=== PATIENT | male | born 1945 | race Two or more races ===

== ENCOUNTER 2017-03-21 10:51 | Inpatient (IN) | payer MEDICARE, OTHER ==
[~2017-03-21] VITALS: Ht 170.2 cm; Wt 57.2 kg
[2017-03-21] VITALS: BP 120/62
--- NOTE | 2017-03-21 11:15 | NUR ---
BIBPA FROM HD- DT LOW BP. PER REPORT HS WAS ALMOST FINISH, PATIENT IS AWAKE, HOWEVER NON VERBALOLY RESPONSIVE. NOTED WITH TRACHEOSTOMY ON O2 ATLPM. PATIENT AV SHUNT ON LFA NOTED WITH NO BLEEDING. SKIN IS WARM TO TOUCH AND NON DIAPHORETIC. AFEBRILE. VSS
[2017-03-21] MEDS ORDERED: IV NS 0.9% 1,000 ML BAG IV ONE (11:30)
--- NOTE | 2017-03-21 11:42 | NUR ---
CALLED PHOTOGRAPHER ASSISTANT SPORTS BOOK BOARD ATTENDANT DR COTO, ON THE PHONE WITH DR SIGALA.
[2017-03-21 11:43] LABS: BASOPHILS # (AUTO) 0.9 /CMM (0.0-0.2); BASOPHILS % (AUTO) 3.3 % (0.0-2.0); EOSINOPHILS # (AUTO) 0.3 /CMM (0.0-0.7); HEMATOCRIT 30 % (39-51); HEMOGLOBIN 9.6 g/dL (13.5-17.5); LYMPHOCYTES # (AUTO) 2.3 /CMM (0.8-4.8); LYMPHOCYTES % (AUTO) 8.6 % (20.0-44.0); MEAN CORPUSCULAR HEMOGLOBIN 29 PG (26.0-33.0); MEAN CORPUSCULAR HGB CONC 32 g/dl (31.0-36.0); MEAN CORPUSCULAR VOLUME 89 fL (80-96); MONOCYTES # (AUTO) 1.6 /CMM (0.1-1.30); MONOCYTES % (AUTO) 6.1 % (2.0-12.0); NEUTROPHILS # (AUTO) 21.8 /CMM (1.8-8.9); PLATELET COUNT (AUTO) 374 /CMM (150-450); RDW COEFFICIENT OF VARIATION 14.8 (11.5-15.0); RED BLOOD CELL COUNT(AUTO) 3.38 MIL/uL (4.5-6.0); WHITE BLOOD COUNT (AUTO) 26.9 K/uL (4.3-11.0)
[2017-03-21] MEDS ORDERED: HEPARIN INFUSION/D5W 500 ML IV PRN ×2 (12:00→15:00)
[2017-03-21] MEDS ORDERED: ASPIRIN 300 MG/SUPP.RECT RC ONE ×2 (12:00→12:06)
[2017-03-21 12:01] LABS: ALANINE AMINOTRANSFERASE 12 U/L (12-78); ALBUMIN 2.8 g/dL (3.4-5.0); ALKALINE PHOSPHATASE 174 U/L (46-116); ASPARTATE AMINOTRANSFERASE 25 U/L (15-37); BILIRUBIN,DIRECT 0.1 mg/dL (0.0-0.2); BILIRUBIN,TOTAL 0.3 mg/dL (0.2-1.0); CALCIUM, SERUM 10.4 mg/dL (8.5-10.1); CARBON DIOXIDE 22 mmol/L (21-32); CHLORIDE 94 mmol/L (98-107); CREATININE 4.8 mg/dL (0.6-1.3); GLUCOSE 204 mg/dL (74-106); SODIUM SERUM 131 mmol/L (136-145); TOTAL PROTEIN, SERUM 9.9 g/dL (6.4-8.2)
[2017-03-21 12:02] LABS: UREA NITROGEN, BLOOD 100 mg/dL (7-18)
[2017-03-21 12:03] LABS: TROPONIN I < 0.017 ng/mL (0.00-0.056)
[2017-03-21] MEDS ORDERED: ASCO500S2 GT (12:12)
[2017-03-21] MEDS ORDERED: LACT10SO GT (12:12)
[2017-03-21] MEDS ORDERED: INSU100V7 SQ (12:12)
[2017-03-21] MEDS ORDERED: HYDR-4076 GT (12:12)
[2017-03-21] MEDS ORDERED: ATOR40TA GT (12:12)
[2017-03-21] MEDS ORDERED: LEVO50TA8 GT (12:12)
[2017-03-21] MEDS ORDERED: CARB-93 GT (12:12)
[2017-03-21] MEDS ORDERED: LINA5TAB GT (12:12)
[2017-03-21] MEDS ORDERED: LEVE500S GT (12:12)
[2017-03-21] MEDS ORDERED: OMEP40CA37 GT (12:12)
[2017-03-21] MEDS ORDERED: FOLI0.8T2 GT (12:12)
[2017-03-21] MEDS ORDERED: MINO10TA2 GT (12:12)
[2017-03-21] MEDS ORDERED: AMLO5TAB4 GT (12:12)
[2017-03-21] MEDS ORDERED: OMEG500C GT (12:12)
[2017-03-21] MEDS ORDERED: AMIN887L GT (12:12)
[2017-03-21] MEDS ORDERED: HEPARIN SODIUM, PORCINE 5000 UNITS/1 ML VIAL ONE (12:14)
--- NOTE | 2017-03-21 12:15 | NUR ---
PER MD DIAZ START HEPARIN DRIP NOW. PATIENT NOT ON ANY BLOOD THINNER. NO SIGNS OF BLEEDING NOTED. AWAITING FOR PTT. MD AWARE.
--- NOTE | 2017-03-21 12:15 | NUR ---
HEAPRIN BOLUS GIVEN ORDERED
[2017-03-21] MEDS ORDERED: SENN8.6T6 GT (12:23)
[2017-03-21] MEDS ORDERED: LORA1TAB GT (12:23)
[2017-03-21] MEDS ORDERED: BLOO-668 IN (12:23)
[2017-03-21] MEDS ORDERED: PROC25SU31 RC (12:23)
[2017-03-21] MEDS ORDERED: ONDA4TAB5 GT (12:23)
[2017-03-21] MEDS ORDERED: ACET160E13 GT (12:23)
[2017-03-21] MEDS ORDERED: SEVE800T8 GT (12:23)
[2017-03-21] MEDS ORDERED: CLON0.1T GT (12:23)
[2017-03-21 12:28] LABS: PROTHROMBIN TIME 9.3 SECS (9.5-12.7)
[2017-03-21] MEDS ORDERED: ACET160S GT (12:28)
--- NOTE | 2017-03-21 12:29 | NUR ---
lab called for critical high aptt >170. dr edwards and primary nurse rod made aware.
--- NOTE | 2017-03-21 12:30 | NUR ---
HEAPRIN DRIP PUT ON HOLD PER MD DIAZ DT PTT RESULT. ORDERED REDRAW.
[2017-03-21] MEDS ORDERED: ACET160L15 GT (12:32)
[2017-03-21] MEDS ORDERED: INSU100V28 SQ (12:46)
[2017-03-21] MEDS ORDERED: HYDROCODONE/APAP 5/325MG 1 EACH TABLET PO PRN (13:00)
[2017-03-21] MEDS ORDERED: HYDROCODONE/APAP 10/325MG 1 EA TABLET PO PRN (13:00)
[2017-03-21] MEDS ORDERED: Z GUARD REMEDY 2 OZ OINT TP PRN (13:00)
[2017-03-21] MEDS ORDERED: ACETAMINOPHEN 325 MG TABLET PO PRN (13:00)
[2017-03-21] MEDS ORDERED: ONDANSETRON HCL/PF 4 MG/2 ML VIAL IVP PRN (13:00)
[2017-03-21] MEDS ORDERED: ZOLPIDEM TARTRATE 5 MG TABLET PO PRN (13:00)
[2017-03-21 13:06] LABS: PARTIAL THROMBOPLASTIN TIME > 170 SEC (23-34)
--- NOTE | 2017-03-21 13:15 | NUR ---
HEPARIN DRIP RESUMED PER MD DIAZ VERIFIED DOSE WITH BYRON WOOD./
--- NOTE | 2017-03-21 13:26 | NUR ---
PATIENT TRANSPORTED TO SUE. VSS
[2017-03-21] MEDS ORDERED: FEE PK DOSING 1 MIN EA MC ONE (13:38)
--- NOTE | 2017-03-21 13:45 | NUR ---
SUE/RN - Admission Pt received from ER via [facility] admitted to SUE with admitting dx Possible sepsis. Pt trach to cool aerosol with O2 @ 4lpm. Respirations even and unlabored. No s/s of pain or discomfort. On tele reading SR 99. TOMMY AV shunt (+) bruit/thrill. IV patent and intact, on heparin gtt. Safety and comfort measures in place. Will continue to monitor pt closely.
[2017-03-21 13:50] VITALS: BP 149/71
[2017-03-21] MEDS ORDERED: VANCOMYCIN 500 MG in IV D5W 100 ML IV PRN (14:00)
[2017-03-21] MEDS ORDERED: VANCOMYCIN 1 GM in IV D5W 250 ML IV ONE (14:00)
[2017-03-21] MEDS ORDERED: ALBUMIN 25% 25 GM in PREMIX 1 EA IV PRN (14:30)
[2017-03-21] MEDS ORDERED: PROCHLORPERAZINE MALEATE SUPP 25 MG/SUPP.RECT SUPP.RECT RC PRN (14:30)
[2017-03-21] MEDS: MEROPENEM 500 MG in IV NS 0.9% 50 ML IV SCH (14:31)
[2017-03-21] MEDS ORDERED: DEXTROSE 50%-WATER 50 ML DISP.SYRIN IV PRN (15:00)
[2017-03-21 16:00] VITALS: BP_SYST 101; BP_SYST 110; BP_DIAS 50; BP_DIAS 67
--- NOTE | 2017-03-21 16:00 | NUR ---
SUE/RN - Notes Hemodialysis started at this time. Vital signs stable.
--- NOTE | 2017-03-21 16:04 | NUR ---
SUE/RN - Notes Pt warm to touch, oral temperature 99.5 F. Administered Tylenol 650mg via GT. Family at bedside. Will continue to monitor.
--- NOTE | 2017-03-21 16:40 | NUR ---
SUE/RN - Notes Heparin gtt discontinued per Dr Clark
[2017-03-21] MEDS: SEVELAMER CARBONATE 800 MG TABLET PO SCH (17:01)
[2017-03-21] MEDS: BLOOD SUGAR DIAGNOSTIC 1 EACH STRIP IN SCH (17:04)
[2017-03-21] MEDS: INSULIN REGULAR, HUMAN 100 UNIT/ML 3 ML VIAL SQ PRN (17:06)
--- NOTE | 2017-03-21 19:15 | NUR ---
RN NOTES PT IS OBTUNDED. RESPONSIVE TO TACTILE STIMULI, RESPONSIVE TO PAIN. TRACH WITH TRACH MASK TOLERATED WELL, BILATERAL LUNG SOUND CRACKLES. SUCTIONED PT WITH WHITISH THICK SECRETION, INNER CANULA CHANGES. NO ACUTE RESP DISTRESS. PT IS WARMTH TO TOUCH TEMP 99.2. TELE MONITOR REVEALS SR WITH ELEVATED T WAVE HR 80'S. INITIAL BOP ON THIS SHIFT IS 11/46. DENIES PAIN. IV SITE ON RIGHT HAND G22 INTACT AND PATENT. LFA AV SHUNT WITH DRESSING CLEANED AND DRY. WITH POSITIVE BRUIT AND THRILL. KEPT PT CLEAN AND DRY. FAMILY AT BEDSIDE. KEPT PT CLEAN AND COMFORTABLE OFFLOADED EXT WITH PILLOWS. WILL CONTINUE TO MONITOR.
[2017-03-21 20:00] VITALS: BP 111/46
--- NOTE | 2017-03-21 20:12 | NUR ---
pt trached with portex #7 and found on bleed in o2 track mask, pt was placed in cool aerosal t-piece and suctioned moderate amount of thick yellow gregorio secretions. pt tolerated procedure well no adverse reaction noted Addendum: 03/21/17 at 2015 by AVIS ADLER RT Amended: Links added.
[2017-03-21] MEDS: ATORVASTATIN 40 MG TABLET GT SCH (21:42)
[2017-03-21] MEDS: SENNOSIDES 8.6 MG TABLET GT SCH (21:42)
[2017-03-21] MEDS: LEVETIRACETAM (250 MG) 250 MG TABLET PO SCH (21:42)
[2017-03-21] MEDS: INSULIN DETEMIR 100 UNIT/ML CARTRIDGE SQ SCH (21:50)
[2017-03-22] VITALS: BP 120/62
[2017-03-22] MEDS: INSULIN REGULAR, HUMAN 100 UNIT/ML 3 ML VIAL SQ PRN ×3 (01:04→17:10)
[2017-03-22] MEDS: MEROPENEM 500 MG in IV NS 0.9% 50 ML IV SCH ×2 (01:05→14:08)
[2017-03-22 04:00] VITALS: BP_SYST 111; BP_SYST 120; BP_DIAS 61; BP_DIAS 62
[2017-03-22] MEDS: BLOOD SUGAR DIAGNOSTIC 1 EACH STRIP IN SCH ×4 (06:23→17:08)
[2017-03-22 06:32] LABS: BASOPHILS # (AUTO) 0.1 /CMM (0.0-0.2); BASOPHILS % (AUTO) 0.5 % (0.0-2.0); HEMATOCRIT 25 % (39-51); HEMOGLOBIN 8.2 g/dL (13.5-17.5); LYMPHOCYTES # (AUTO) 1.7 /CMM (0.8-4.8); LYMPHOCYTES % (AUTO) 14.6 % (20.0-44.0); MEAN CORPUSCULAR HEMOGLOBIN 29 PG (26.0-33.0); MEAN CORPUSCULAR HGB CONC 33 g/dl (31.0-36.0); MEAN CORPUSCULAR VOLUME 89 fL (80-96); MONOCYTES % (AUTO) 8.7 % (2.0-12.0); NEUTROPHILS # (AUTO) 9.1 /CMM (1.8-8.9); NEUTROPHILS % (AUTO) 76.2 % (43.0-81.0); PLATELET COUNT (AUTO) 311 /CMM (150-450); RDW COEFFICIENT OF VARIATION 15.5 (11.5-15.0); RED BLOOD CELL COUNT(AUTO) 2.82 MIL/uL (4.5-6.0); WHITE BLOOD COUNT (AUTO) 11.9 K/uL (4.3-11.0)
--- NOTE | 2017-03-22 06:37 | NUR ---
RN NOTES PATIENT REMAINED IN STABLE CONDITION AT THIS TIME. DUE MEDS TOLERATED WELL. AFEBRILE. VS WNL. INCONTINENT CARE RENDERED. GTF TOLERATED WELL WITHOUT N/V. REMAINED SR HR 80'S KEPT PT CLEAN AND DRY. IV ATB TOLERATED WELL WITHOUT ASE NOTED. KEPT PT CLEAN AND COMFORTABLE IN BED. NO SIGNIFICANT JOSE THROUGHOUT THE SHIFT. WILL ENDORSED CONTINUITY OF CARE
[2017-03-22 06:51] LABS: B-TYPE NATRIURETIC PEPTIDE 9508 PG/ML (0-125); CALCIUM, SERUM 9.6 mg/dL (8.5-10.1); CARBON DIOXIDE 26 mmol/L (21-32); CHLORIDE 95 mmol/L (98-107); CREATININE 4.6 mg/dL (0.6-1.3); GLUCOSE 151 mg/dL (74-106); PHOSPHORUS 4.1 mg/dL (2.5-4.9); POTASSIUM 3.8 mmol/L (3.5-5.1); SODIUM SERUM 132 mmol/L (136-145)
[2017-03-22 06:53] LABS: UREA NITROGEN, BLOOD 97 mg/dL (7-18)
[2017-03-22 06:56] LABS: CHOLESTEROL 88 mg/dL (<200); HDL CHOLESTEROL 35 mg/dL (40-60); LDL 28 mg/dL (0-99); THYROID STIMULATING HORMONE 3.281 uIU/mL (0.358-3.74); TRIGLYCERIDES 185 mg/dL (30-150)
[2017-03-22 08:00] VITALS: BP 103/48
--- NOTE | 2017-03-22 08:00 | NUR ---
TD/RN AM SHIFT INITIAL NOTES RECEIVED PT AWAKE IN GINO, PT NON-VERBAL, OPEN EYES, NO GRIMACING NOTED, NO ACUTE CHANGE OF CONDITION. ON COOL AEROSOL WITH 40% FIO2, LUNG Addendum: 03/22/17 at 1025 by EVERARDO FIGUEROA RN INITIAL NOTES CONTINUED. LUNG SOUNDS, RHONCHI. SATURATING @ 100%, SUCTIONED FOR AIRWAY CLEARANCE. ON TELE WITH SINUS RHYTHM WITH ELEVATED T-WAVE, HR 85. GT FEEDING ON GOING @ 30CC/HR, NO GASTRIC RESIDUAL NOTED, FLUSHED, PATENT. AV SHUNT (+) OF THRILL & BRUIT. IV SITE ON TKO, PATENT WITH NO S/S OF INFECTION. PT IS COMFORTABLE. SCHEDULED AM MEDS TO BE GIVEN. CL WITHIN REACHED AND SAFETY MAINTAINED. PT IS SCHEDULED TO HAVE HD TX TODAY. ON GOING MONITORING.
[2017-03-22] MEDS: ASCORBIC ACID 500 MG TABLET GT SCH (08:54)
[2017-03-22] MEDS: LINAGLIPTIN 5 MG TABLET GT SCH (08:55)
[2017-03-22] MEDS: PANTOPRAZOLE 40 MG VIAL IV SCH (08:55)
[2017-03-22] MEDS: LEVETIRACETAM (250 MG) 250 MG TABLET PO SCH ×2 (08:55→21:03)
[2017-03-22] MEDS: LEVOTHYROXINE SODIUM 50 MCG TABLET GT SCH (08:55)
[2017-03-22] MEDS: SEVELAMER CARBONATE 800 MG TABLET PO SCH ×3 (08:55→17:07)
[2017-03-22] MEDS ORDERED: ASCORBIC ACID SYRUP 500 MG/5 ML UDC GT SCH (09:00)
[2017-03-22] MEDS ORDERED: MINOXIDIL (10MG) 10 MG TABLET GT SCH (09:00)
[2017-03-22 12:00] VITALS: BP 105/93
[2017-03-22] MEDS: ASPIRIN 81 MG TAB.CHEW PO SCH (12:36)
--- NOTE | 2017-03-22 12:45 | NUR ---
TD/GRAIN MILL WORKER TX PT TOLERATED DIALYSIS TX, REMOVED 1.5L, BP 105/56, HR 87. MONITORING CONTINUED.
[2017-03-22 16:00] VITALS: BP 104/47
[2017-03-22] MEDS ORDERED: VANCOMYCIN 1 GM in IV D5W 250 ML IV ONE (16:00)
--- NOTE | 2017-03-22 16:00 | NUR ---
TD/RN AFTERNOON ROUNDS NO CHANGE OF CONDITION. MONITORING CONTINUED.
[2017-03-22] MEDS: LACTOBACILLUS RHAMNOSUS GG 1 EACH CAP.SPRINK GT SCH (17:08)
--- NOTE | 2017-03-22 19:16 | NUR ---
TD/RN AM SHIFT END NOTES ALL NEEDS MET. NO ACUTE CHANGE OF CONDITION NOTED DURING THE SHIFT. PT ENDORSED TO PM NURSE TO CONTINUE CARE. CL WITHIN REACHED AND SAFETY MAINTAINED.
--- NOTE | 2017-03-22 19:52 | NUR ---
RN SUE INITIAL NOTE PT IS AOX1. RESPONDS TO NAME, RESPONDS TO QUESTIONS WITH FACIAL GESTURES AND THUBS UP FOR YES OR NO. TRACH WITH C/A @ 40% FIO2 TOLERATED WELL, BILATERAL LUNG SOUND CRACKLES. SUCTIONED PT WITH WHITISH THICK SECRETION. NO ACUTE RESP DISTRESS. PT IS WARMTH TO TOUCH TEMP 97.7 TELE MONITOR REVEALS SR WITH ELEVATED T WAVE HR 90'S. DENIES PAIN. IV SITE ON RIGHT HAND G22 INTACT AND PATENT. LFA AV SHUNT WITH DRESSING CLEANED AND DRY. WITH POSITIVE BRUIT AND THRILL. KEPT PT CLEAN AND DRY. FAMILY AT BEDSIDE. KEPT PT CLEAN AND COMFORTABLE OFFLOADED EXT WITH PILLOWS. WILL CONTINUE TO MONITOR.
[2017-03-22 20:00] VITALS: BP_SYST 104; BP_SYST 136; BP_DIAS 47; BP_DIAS 62
[2017-03-22] MEDS: SENNOSIDES 8.6 MG TABLET GT SCH (21:03)
[2017-03-22] MEDS: ATORVASTATIN 40 MG TABLET GT SCH (21:03)
[2017-03-22] MEDS: INSULIN DETEMIR 100 UNIT/ML CARTRIDGE SQ SCH (21:20)
[2017-03-23] VITALS: BP 112/56
[2017-03-23] MEDS: BLOOD SUGAR DIAGNOSTIC 1 EACH STRIP IN SCH ×5 (00:39→23:34)
[2017-03-23] MEDS: INSULIN REGULAR, HUMAN 100 UNIT/ML 3 ML VIAL SQ PRN ×3 (00:46→12:37)
[2017-03-23] MEDS: MEROPENEM 500 MG in IV NS 0.9% 50 ML IV SCH ×2 (01:19→14:23)
[2017-03-23 04:00] VITALS: BP 122/59
[2017-03-23] MEDS: RENAL NOVASOURCE 1,000 ML BOTTLE GT PRN (05:34)
[2017-03-23 07:52] LABS: BASOPHILS % (AUTO) 0.4 % (0.0-2.0); EOSINOPHILS # (AUTO) 0.5 /CMM (0.0-0.7); EOSINOPHILS % (AUTO) 6.3 % (0.0-6.0); HEMATOCRIT 27 % (39-51); HEMOGLOBIN 8.6 g/dL (13.5-17.5); LYMPHOCYTES # (AUTO) 1.1 /CMM (0.8-4.8); LYMPHOCYTES % (AUTO) 14.5 % (20.0-44.0); MEAN CORPUSCULAR HEMOGLOBIN 29 PG (26.0-33.0); MEAN CORPUSCULAR HGB CONC 32 g/dl (31.0-36.0); MEAN CORPUSCULAR VOLUME 91 fL (80-96); MONOCYTES # (AUTO) 0.7 /CMM (0.1-1.30); MONOCYTES % (AUTO) 9.6 % (2.0-12.0); NEUTROPHILS # (AUTO) 5.2 /CMM (1.8-8.9); NEUTROPHILS % (AUTO) 69.2 % (43.0-81.0); PLATELET COUNT (AUTO) 281 /CMM (150-450); RED BLOOD CELL COUNT(AUTO) 2.97 MIL/uL (4.5-6.0); WHITE BLOOD COUNT (AUTO) 7.6 K/uL (4.3-11.0)
[2017-03-23 08:00] VITALS: BP 119/57
--- NOTE | 2017-03-23 08:00 | NUR ---
TD/RN AM SHIFT INITIAL NOTES RECEIVED PT AWAKE IN BED, PT ALERT, OPEN EYES, NON-VERBAL. NO GRIMACE OR ACUTE CHANGE OF CONDITION. PT ON T-PIECE, COOL AEROSOL WITH 40% FIO2, NOTED WITH CLEAR LUNG SOUNDS, SATURATING @ 100%, SUCTIONED FOR AIRWAY CLEARANCE. ON TELE WITH SINUS RHYTHM, HR 90. ON GOING GT FEEDING @ 30CC/HR, NO GASTRIC RESIDUAL, FLUSHED, PATENT. PT IS COMFORTABLE AT THIS TIME. SCHEDULED AM MEDS TO BE GIVEN. CL WITHIN REACHED AND SAFETY MAINTAINED. ON GOING MONITORING.
[2017-03-23 08:24] LABS: CALCIUM, SERUM 9.1 mg/dL (8.5-10.1); CARBON DIOXIDE 22 mmol/L (21-32); CHLORIDE 94 mmol/L (98-107); CREATININE 4.6 mg/dL (0.6-1.3); GLUCOSE 144 mg/dL (74-106); PHOSPHORUS 4.3 mg/dL (2.5-4.9); POTASSIUM 4.1 mmol/L (3.5-5.1); SODIUM SERUM 133 mmol/L (136-145)
[2017-03-23 08:36] LABS: UREA NITROGEN, BLOOD 95 mg/dL (7-18)
[2017-03-23] MEDS: PANTOPRAZOLE 40 MG VIAL IV SCH (09:03)
[2017-03-23] MEDS: MINOXIDIL (2.5MG) 2.5 MG TABLET GT SCH (09:04)
[2017-03-23] MEDS: SEVELAMER CARBONATE 800 MG TABLET PO SCH ×3 (09:04→17:00)
[2017-03-23] MEDS: LINAGLIPTIN 5 MG TABLET GT SCH (09:05)
[2017-03-23] MEDS: LEVOTHYROXINE SODIUM 50 MCG TABLET GT SCH (09:05)
[2017-03-23] MEDS: ASCORBIC ACID 500 MG TABLET GT SCH (09:05)
[2017-03-23] MEDS: LEVETIRACETAM (250 MG) 250 MG TABLET PO SCH ×2 (09:06→21:13)
[2017-03-23] MEDS: ASPIRIN 81 MG TAB.CHEW PO SCH (09:08)
[2017-03-23] MEDS: LACTOBACILLUS RHAMNOSUS GG 1 EACH CAP.SPRINK GT SCH ×2 (09:08→17:00)
--- NOTE | 2017-03-23 10:52 | NUR ---
TELE1/RN ROUNDS - Jonathan CHAVARRIA PT SEEN & EXAMINED BY DR. GRAY. NO NEW ORDERS RECEIVED AT THIS TIME. MONITORING CONTINUED.
[2017-03-23 12:00] VITALS: BP 112/47
--- NOTE | 2017-03-23 15:00 | NUR ---
TELE1/RN ROUNDS - DR. GA UPDATED PT'S CONDITION. PT SEEN & EXAMINED BY DR. GA. NO NEW ORDERS RECEIVED AT THIS TIME.
[2017-03-23 16:00] VITALS: BP 123/54
--- NOTE | 2017-03-23 16:30 | NUR ---
TELE1/RN AFTERNOON ROUNDS NO ACUTE CHANGE OF CONDITION. PM CARE PROVIDED. MONITORING CONTINUED.
--- NOTE | 2017-03-23 19:30 | NUR ---
RN/ TELE NOTES: RECEIVED PT AWAKE IN BED W/ EYES OPEN NON VERBAL. NO GRIMACE OR MOANING NOTED. NOT IN ANY ACUTE DISTRESS. PT ON T-PIECE, COOL AEROSOL WITH 40% FIO2, NOTED WITH CLEAR LUNG SOUNDS, SATURATING @ 98%,. SUCTIONED FOR AIRWAY CLEARANCE. ON TELE WITH SINUS RHYTHM, HR 97. ON GOING GT FEEDING @ 30CC/HR, NO GASTRIC RESIDUAL, FLUSHED, PATENT AND TOLERATING FEEDING WELL. PT IS COMFORTABLE AT THIS TIME. CALL LIGHT W/REACH. W/ FREQUENT ROUNDS MADE. WILL CONTINUE TO MONITOR.
[2017-03-23 20:00] VITALS: BP 119/62
[2017-03-23] MEDS: ATORVASTATIN 40 MG TABLET GT SCH (21:13)
[2017-03-23] MEDS: SENNOSIDES 8.6 MG TABLET GT SCH (21:14)
[2017-03-23] MEDS: INSULIN DETEMIR 100 UNIT/ML CARTRIDGE SQ SCH (21:20)
[2017-03-24] VITALS (8 sets, daily range): BP systolic 93–128; BP diastolic 47–55
[2017-03-24] MEDS: MEROPENEM 500 MG in IV NS 0.9% 50 ML IV SCH ×2 (01:33→12:54)
[2017-03-24] MEDS: BLOOD SUGAR DIAGNOSTIC 1 EACH STRIP IN SCH ×4 (05:39→23:44)
[2017-03-24] MEDS: INSULIN REGULAR, HUMAN 100 UNIT/ML 3 ML VIAL SQ PRN ×4 (05:42→23:46)
[2017-03-24 06:41] LABS: BASOPHILS # (AUTO) 0.1 /CMM (0.0-0.2); BASOPHILS % (AUTO) 0.6 % (0.0-2.0); EOSINOPHILS # (AUTO) 0.7 /CMM (0.0-0.7); HEMATOCRIT 26 % (39-51); HEMOGLOBIN 8.6 g/dL (13.5-17.5); LYMPHOCYTES # (AUTO) 1.4 /CMM (0.8-4.8); LYMPHOCYTES % (AUTO) 16.5 % (20.0-44.0); MEAN CORPUSCULAR HEMOGLOBIN 29 PG (26.0-33.0); MEAN CORPUSCULAR HGB CONC 32 g/dl (31.0-36.0); MEAN CORPUSCULAR VOLUME 89 fL (80-96); MONOCYTES # (AUTO) 0.9 /CMM (0.1-1.30); MONOCYTES % (AUTO) 10.5 % (2.0-12.0); NEUTROPHILS # (AUTO) 5.6 /CMM (1.8-8.9); NEUTROPHILS % (AUTO) 64.4 % (43.0-81.0); PLATELET COUNT (AUTO) 332 /CMM (150-450); RDW COEFFICIENT OF VARIATION 15.5 (11.5-15.0); RED BLOOD CELL COUNT(AUTO) 2.96 MIL/uL (4.5-6.0); WHITE BLOOD COUNT (AUTO) 8.6 K/uL (4.3-11.0)
--- NOTE | 2017-03-24 06:56 | NUR ---
RN/TELE NOTES: GAGE FROM LAB CALLED W/ AEROBIC BOTTLE BLOOD CULTURE RESULTS GRAM + COCCI AND CLUSTERS. PT. STAYED IN STABLE CONDITION. SON CALLED X 3 W/ UPDATES GIVEN TO PT. TOLERATING GTF WELL W/ NO RESIDUALS NOTED. ON T-PIECE W/ 6LPM W/ O2 SAT 98 %. NO FACIAL GRIMACES OR MOANING NOTED. CALL LIGHT W/ REACH. ALL NEEDS MEET. REPORT GIVEN TO NEXT SHIFT TO CONTINUE OF CARE.
--- NOTE | 2017-03-24 07:10 | NUR ---
RN NOTES REPORT RECV'D FROM NOC RN. PT BROUGHT IN FROM [facility] 3 DAYS AGO FOR HYPOTENSION. DX POSSIBLE SEPSIS. NON VERBAL. OBTUNDED. BLD CULT POSITIVE X 1 THIS AM. AFEBRILE. HOB ELEVATED. COOL AEROSOL HI FLOW TRACH COLLAR SATS 99%. LFA AV SHUNT. RFA 22G SL. SACRAL REDNESS--WILL KEEP CLEAN AND DRY TURNING Q2HR OFFLOADING. BLOOD SUGAR CHECKS. PLAN FOR DIALYSIS TODAY. BED IN LOW LOCKED POSITION. SIDE RAILS UP. WILL CONT TO MONITOR CLOSELY.
[2017-03-24 07:13] LABS: CALCIUM, SERUM 8.9 mg/dL (8.5-10.1); CARBON DIOXIDE 21 mmol/L (21-32); CHLORIDE 92 mmol/L (98-107); GLUCOSE 145 mg/dL (74-106); MAGNESIUM 3.2 mg/dL (1.8-2.4); PHOSPHORUS 4.9 mg/dL (2.5-4.9); SODIUM SERUM 132 mmol/L (136-145)
[2017-03-24 07:16] LABS: UREA NITROGEN, BLOOD 122 mg/dL (7-18)
[2017-03-24] MEDS: PANTOPRAZOLE 40 MG VIAL IV SCH (08:31)
[2017-03-24] MEDS: LEVETIRACETAM (250 MG) 250 MG TABLET PO SCH ×2 (08:31→21:18)
[2017-03-24] MEDS: LACTOBACILLUS RHAMNOSUS GG 1 EACH CAP.SPRINK GT SCH ×2 (08:31→17:37)
[2017-03-24] MEDS: LEVOTHYROXINE SODIUM 50 MCG TABLET GT SCH (08:31)
[2017-03-24] MEDS: MINOXIDIL (2.5MG) 2.5 MG TABLET GT SCH (08:31)
[2017-03-24] MEDS: SEVELAMER CARBONATE 800 MG TABLET PO SCH ×3 (08:31→17:37)
[2017-03-24] MEDS: ASPIRIN 81 MG TAB.CHEW PO SCH (08:32)
[2017-03-24] MEDS: ASCORBIC ACID 500 MG TABLET GT SCH (08:32)
[2017-03-24] MEDS: LINAGLIPTIN 5 MG TABLET GT SCH (08:39)
--- NOTE | 2017-03-24 18:35 | NUR ---
RN CLOSING NOTES NO CHANGES THIS SHIFT. HOB ELEVATED. HD IN PROGRESS. FAMILY AT BEDSIDE. PLAN FOR DC TO SNF TOMORROW. BED RAILS UP X2. 100% O2 SATS TRACH TUBE COOL AEROSOL 8L/MIN. CALL LIGHT IN REACH. WILL ENDORSE TO MEDARDO MATTHEWS.
--- NOTE | 2017-03-24 19:30 | NUR ---
RN/ TELE NOTES: RECEIVED PT AWAKE IN BED W/ EYES OPEN NON VERBAL. W/ HD IN PROCESS W/ FAMILY AT BEDSIDE. NO GRIMACE OR MOANING NOTED. NOT IN ANY ACUTE DISTRESS. PT ON T-PIECE, COOL AEROSOL WITH 40% FIO2, SATURATING @ 98%,. SUCTIONED FOR AIRWAY CLEARANCE. ON TELE WITH SINUS RHYTHM, HR 97. ON GOING GT FEEDING @ 30CC/HR, NO GASTRIC RESIDUAL, FLUSHED, PATENT AND TOLERATING FEEDING WELL. PT IS COMFORTABLE AT THIS TIME. CALL LIGHT W/REACH. W/ FREQUENT ROUNDS MADE. WILL CONTINUE TO MONITOR.
[2017-03-24] MEDS: ATORVASTATIN 40 MG TABLET GT SCH (21:18)
[2017-03-24] MEDS: SENNOSIDES 8.6 MG TABLET GT SCH (21:19)
[2017-03-24] MEDS: INSULIN DETEMIR 100 UNIT/ML CARTRIDGE SQ SCH (21:27)
[2017-03-25] VITALS: BP 109/63
[2017-03-25 04:00] VITALS: BP 118/70
[2017-03-25] MEDS: BLOOD SUGAR DIAGNOSTIC 1 EACH STRIP IN SCH ×4 (05:23→23:48)
[2017-03-25 06:38] LABS: BASOPHILS # (AUTO) 0.1 /CMM (0.0-0.2); BASOPHILS % (AUTO) 0.7 % (0.0-2.0); EOSINOPHILS # (AUTO) 0.6 /CMM (0.0-0.7); EOSINOPHILS % (AUTO) 7.8 % (0.0-6.0); HEMATOCRIT 25 % (39-51); HEMOGLOBIN 8.3 g/dL (13.5-17.5); LYMPHOCYTES # (AUTO) 1.3 /CMM (0.8-4.8); LYMPHOCYTES % (AUTO) 17.5 % (20.0-44.0); MEAN CORPUSCULAR HEMOGLOBIN 30 PG (26.0-33.0); MEAN CORPUSCULAR HGB CONC 33 g/dl (31.0-36.0); MEAN CORPUSCULAR VOLUME 88 fL (80-96); MONOCYTES # (AUTO) 0.9 /CMM (0.1-1.30); MONOCYTES % (AUTO) 11.9 % (2.0-12.0); NEUTROPHILS # (AUTO) 4.7 /CMM (1.8-8.9); NEUTROPHILS % (AUTO) 62.1 % (43.0-81.0); PLATELET COUNT (AUTO) 330 /CMM (150-450); RDW COEFFICIENT OF VARIATION 15.3 (11.5-15.0); RED BLOOD CELL COUNT(AUTO) 2.81 MIL/uL (4.5-6.0); WHITE BLOOD COUNT (AUTO) 7.6 K/uL (4.3-11.0)
--- NOTE | 2017-03-25 07:11 | NUR ---
RN/ TELE NOTES: PT. STAYED IN STABLE CONDITION. SON CALLED X 2 W/ UPDATES GIVEN. PT. TOLERATING GTF WELL W/ NO RESIDUALS NOTED. ON T-PIECE W/ 5LPM W/ O2 SAT 98 %. NO FACIAL GRIMACES OR MOANING NOTED. CALL LIGHT W/ REACH. ALL NEEDS MEET. REPORT GIVEN TO NEXT SHIFT TO CONTINUE OF CARE.
[2017-03-25 07:14] LABS: CALCIUM, SERUM 8.6 mg/dL (8.5-10.1); CARBON DIOXIDE 26 mmol/L (21-32); CHLORIDE 93 mmol/L (98-107); CREATININE 4.1 mg/dL (0.6-1.3); GLUCOSE 131 mg/dL (74-106); MAGNESIUM 2.7 mg/dL (1.8-2.4); PHOSPHORUS 4.1 mg/dL (2.5-4.9); POTASSIUM 3.8 mmol/L (3.5-5.1); SODIUM SERUM 133 mmol/L (136-145); UREA NITROGEN, BLOOD 75 mg/dL (7-18)
--- NOTE | 2017-03-25 07:30 | NUR ---
PASSENGER SCREENER NOTE RECEIVED PT AWAKE IN BED W/ EYES OPEN NON VERBAL. NO GRIMACE OR MOANING NOTED. NOT IN ANY ACUTE DISTRESS. PT ON T-PIECE, COOL AEROSOL ON 5L O2 SATURATING @ 98%,. SUCTIONED FOR AIRWAY CLEARANCE. ON TELE WITH SINUS RHYTHM, HR 97. ON GOING GT FEEDING @ 30CC/HR, NO GASTRIC RESIDUAL, FLUSHED, PATENT AND TOLERATING FEEDING WELL.KEEP HOB ELEVATED AT ALL TIME , PT IS COMFORTABLE AT THIS TIME. CALL LIGHT W/REACH. LT FA AV SHUNT IN PLACE WITH BRUIT AND THRILL SOUND, RT FA HL IN TACT NO S\S INFECTION NOTED WILL CONT TO MONITOR CLOSELY ,BED IN LOWEST AND LOCKED POSITION , PLAN OF CARE DISCUSSED WITH PATIENT
[2017-03-25 08:00] VITALS: BP_SYST 128; BP_SYST 144; BP_DIAS 68; BP_DIAS 80
[2017-03-25] MEDS: SEVELAMER CARBONATE 800 MG TABLET PO SCH ×3 (08:56→17:11)
[2017-03-25] MEDS: ASPIRIN 81 MG TAB.CHEW PO SCH (08:56)
[2017-03-25] MEDS: LACTOBACILLUS RHAMNOSUS GG 1 EACH CAP.SPRINK GT SCH ×2 (08:56→16:52)
[2017-03-25] MEDS: LEVOTHYROXINE SODIUM 50 MCG TABLET GT SCH (08:56)
[2017-03-25] MEDS: PANTOPRAZOLE 40 MG VIAL IV SCH (08:57)
[2017-03-25] MEDS: LEVETIRACETAM (250 MG) 250 MG TABLET PO SCH ×2 (08:57→21:21)
[2017-03-25] MEDS: ASCORBIC ACID 500 MG TABLET GT SCH (08:57)
[2017-03-25] MEDS: MINOXIDIL (2.5MG) 2.5 MG TABLET GT SCH (08:57)
[2017-03-25] MEDS: LINAGLIPTIN 5 MG TABLET GT SCH (08:58)
--- NOTE | 2017-03-25 10:30 | NUR ---
MAINSPRING FORMER NOTE ALL NEEDS ATTENDED ,KEEP CLEAN, DRY, REPOSITION Q2 HOUR ,WILL CONT TO MONITOR CLOSELY
[2017-03-25 12:00] VITALS: BP 98/51
[2017-03-25] MEDS: INSULIN REGULAR, HUMAN 100 UNIT/ML 3 ML VIAL SQ PRN (12:03)
--- NOTE | 2017-03-25 13:27 | NUR ---
PICKING BELT OPERATOR NOTE PER DIETARY AND JOSIE RN BUSINESS CONTINUITY CONSULTANT OK TO START NEPHRO PAULO DAILY. ALSO PER JOSIE MATTHEWS BUSINESS CONTINUITY CONSULTANT, OK TO HAVE DVT PUMPS BOTH LEGS
[2017-03-25 16:00] VITALS: BP 95/46
--- NOTE | 2017-03-25 17:21 | NUR ---
CHILD WELFARE ASSISTANT NOTE FAMILY AT BEDSIDE ,ALL NEEDS ATTENDED ,NOT IN ACUTE DISTRESS,CONT ON G TUBE FEEDING ORDERED ,TOLERATED WELL
--- NOTE | 2017-03-25 18:27 | NUR ---
STAFF NUCLEAR MEDICINE TECHNOLOGIST NOTE FAMILY AT BESIDE,ALL NEEDS ATTENDED ,KEEP CLEAN DRY, NOT IN ACUTE DISTRESS
[2017-03-25 20:00] VITALS: BP 119/59
--- NOTE | 2017-03-25 20:00 | NUR ---
CARGO VESSEL STEWARDESS NOTE: PATIENT RESTING IN BED, NO ACUTE DISTRESS NOTED FAMILY AT BEDSIDE. BREATHING EVEN AND UNLABORED, NO SOB NOTED, T-PIECE IN PLACE AT 5 LPM AT 28%. IV TO RIGHT HAND IN PLACE. IV TO RFA IN PLACE, BUT LEAKING TO BE REMOVED. G-TUBE IN PLACE WITH NO RESIDUAL, INFUSING NOVASOURCE AT 30 ML/HR, HOB ELEVATED. TELE READING 9O. HD SITE TO LFA AV SHUNT, DRESSING IN PLACE, NO BLEEDING NOTED. BED LOCKED AND IN LOWEST POSITION, CALL LIGHT IN REACH, WILL CONTINUE TO MONITOR.
--- NOTE | 2017-03-25 20:30 | NUR ---
BOLT THREADER NOTE: REPORT GIVEN TO CHAZ, PATIENT IN STABLE CONDITION.
--- NOTE | 2017-03-25 20:30 | NUR ---
TELE/RN NOTES RECEIVED REPORT FROM RN FOR JOSE. PATIENT IS AWAKE, CAN OPEN EYES AND GIVE GOOD EYE CONTACT, RESPONSIVE TO TOUCH, , ON TELE SR AIN 91, REQUIRE EXTENSIVE ASSISTANCE , INCONTINENT, REQUIRE REPOSITION AND TURNING WITH SACRAL REDNESS, ON T PIECE, GTUBE SETTING AT 30ML/HR, WILL MONITOR AND CHANGES.
[2017-03-25] MEDS: ATORVASTATIN 40 MG TABLET GT SCH (21:21)
[2017-03-25] MEDS: SENNOSIDES 8.6 MG TABLET GT SCH (21:21)
[2017-03-25] MEDS: INSULIN DETEMIR 100 UNIT/ML CARTRIDGE SQ SCH (21:29)
[2017-03-26] VITALS: BP 132/60
[2017-03-26 04:00] VITALS: BP 140/61
[2017-03-26] MEDS: RENAL NOVASOURCE 1,000 ML BOTTLE GT PRN (04:43)
[2017-03-26] MEDS: BLOOD SUGAR DIAGNOSTIC 1 EACH STRIP IN SCH ×3 (05:28→17:08)
[2017-03-26] MEDS: INSULIN REGULAR, HUMAN 100 UNIT/ML 3 ML VIAL SQ PRN ×3 (05:35→17:17)
--- NOTE | 2017-03-26 06:26 | NUR ---
RN NOTES PATIENT IN BED, HOB ELEVATE, ABLE TO SLEEP 4 TO 5 HOURS, GOOD EYE CONTACT, RESPIRATION EVEN AND UNLABORED ON T PIECE, WILL PROVIDE CARE AND MONITOR FOR ANY CHANGES.BED IN LOCK POSITION, KEEP SKIN INTACT AND DRY.WILL ENDORSE TO AM RN FOR JOSE.PATIENT DIALYSIS SHUNT ON LEFT UPPER ARM, REAPPLY DRESSING AND MONITOR FOR BLEEDING. APPLY PRESSURE ON SITE , COVER W/ GAUZE AND TAPE.
--- NOTE | 2017-03-26 07:20 | NUR ---
RN NOTES PT IS SLEEPING IN BED, NO SIGNS OF DISTRESS NOTED. PT ON 5L O2, RESPIRATIONS ARE EVEN AND UNLABORED. IV ON R HAND INTACT AND SL, LFA AV SHUNT INTACT. SAFETY MEASURES ARE IN PLACE, CALL LIGHT IS IN REACH. WILL CONTINUE TO MONITOR.
[2017-03-26 07:23] LABS: CALCIUM, SERUM 8.2 mg/dL (8.5-10.1); CARBON DIOXIDE 26 mmol/L (21-32); CHLORIDE 89 mmol/L (98-107); CREATININE 5.6 mg/dL (0.6-1.3); GLUCOSE 146 mg/dL (74-106); MAGNESIUM 2.9 mg/dL (1.8-2.4); POTASSIUM 4.1 mmol/L (3.5-5.1); SODIUM SERUM 130 mmol/L (136-145)
[2017-03-26 07:24] LABS: UREA NITROGEN, BLOOD 102 mg/dL (7-18)
[2017-03-26 07:40] LABS: BASOPHILS # (AUTO) 0.1 /CMM (0.0-0.2); BASOPHILS % (AUTO) 0.7 % (0.0-2.0); EOSINOPHILS # (AUTO) 0.7 /CMM (0.0-0.7); EOSINOPHILS % (AUTO) 7.3 % (0.0-6.0); HEMATOCRIT 24 % (39-51); HEMOGLOBIN 7.7 g/dL (13.5-17.5); LYMPHOCYTES # (AUTO) 1.9 /CMM (0.8-4.8); LYMPHOCYTES % (AUTO) 20.5 % (20.0-44.0); MEAN CORPUSCULAR HEMOGLOBIN 29 PG (26.0-33.0); MEAN CORPUSCULAR HGB CONC 33 g/dl (31.0-36.0); MEAN CORPUSCULAR VOLUME 88 fL (80-96); MONOCYTES # (AUTO) 0.9 /CMM (0.1-1.30); MONOCYTES % (AUTO) 10.1 % (2.0-12.0); NEUTROPHILS # (AUTO) 5.7 /CMM (1.8-8.9); NEUTROPHILS % (AUTO) 61.4 % (43.0-81.0); PLATELET COUNT (AUTO) 350 /CMM (150-450); RDW COEFFICIENT OF VARIATION 14.4 (11.5-15.0); RED BLOOD CELL COUNT(AUTO) 2.66 MIL/uL (4.5-6.0); WHITE BLOOD COUNT (AUTO) 9.3 K/uL (4.3-11.0)
[2017-03-26 08:00] VITALS: BP 140/66
[2017-03-26] MEDS: SEVELAMER CARBONATE 800 MG TABLET PO SCH ×4 (08:00→17:08)
[2017-03-26] MEDS: LEVETIRACETAM (250 MG) 250 MG TABLET PO SCH ×2 (08:26→22:29)
[2017-03-26] MEDS: ASCORBIC ACID 500 MG TABLET GT SCH (08:26)
[2017-03-26] MEDS: PANTOPRAZOLE 40 MG VIAL IV SCH (08:26)
[2017-03-26] MEDS: ASPIRIN 81 MG TAB.CHEW PO SCH (08:26)
[2017-03-26] MEDS: LACTOBACILLUS RHAMNOSUS GG 1 EACH CAP.SPRINK GT SCH ×2 (08:26→17:08)
[2017-03-26] MEDS: LEVOTHYROXINE SODIUM 50 MCG TABLET GT SCH (08:26)
[2017-03-26] MEDS: LINAGLIPTIN 5 MG TABLET GT SCH (08:27)
[2017-03-26] MEDS: VIT B CMPLX 3/FA/VIT C/BIOTIN 1 TAB TABLET PO SCH (08:27)
[2017-03-26] MEDS: MINOXIDIL (2.5MG) 2.5 MG TABLET GT SCH (08:27)
--- NOTE | 2017-03-26 09:34 | NUR ---
WOUND CARE CONSULT: PT SEEN FOR SACRAL SCARRING WITH STAINING OF SKIN AND SLIGHT SKIN PEELING AT SACRAL/BUTTOCKS AREA. RECOMMENDATIONS MADE FOR SKIN PROTECTION. DISCUSSED WITH NURSING STAFF. PT ON FIRST STEP MATTRESS. ALL SKIN PROTECTION MEASURES IN PLACE. WILL SEE PRN. CURRENT YAMILETH SCORE IS 13. MD IN AGREEMENT WITH PLAN OF CARE. Addendum: 03/26/17 at 0936 by ALFREDO MARR WNDNU Amended: Links added.
[2017-03-26 16:00] VITALS: BP 112/59
--- NOTE | 2017-03-26 18:43 | NUR ---
RN NOTES PT IS RESTING COMFORTABLY IN BED. PT CONNECTED TO TRACH PIECE, ON 5L OF O2, SATING 100%. IV ON R HAND INTACT AND PATENT, SL. G-TUBE IS INTACT AND RUNNING NOVASOURCE AT 30ML/HR. ALL MEDS WERE GIVEN ORDERED AND TRACH CARE PERFORMED. PT KEPT CLEAN AND DRY, TURNED Q2HRS. PT STILL WAITING FOR DIALYSIS. SAFETY MEASURES ARE IN PLACE, CALL LIGHT IS IN REACH. WILL ENDORSE TO RESTAURANT MANAGER RN FOR CONTINUITY OF CARE.
--- NOTE | 2017-03-26 19:30 | NUR ---
MS RN NOTE RECEIVED PT AWAKE IN BED W/ EYES OPEN NON VERBAL. NO GRIMACE OR MOANING NOTED. NOT IN ANY ACUTE DISTRESS. PT ON T-PIECE, COOL AEROSOL ON 5L O2 SATURATING @ 98%,. SUCTIONED FOR AIRWAY CLEARANCE. ON GOING GT FEEDING @ 30CC/HR, NO GASTRIC RESIDUAL, FLUSHED, PATENT AND TOLERATING FEEDING WELL.KEEP HOB ELEVATED AT ALL TIME , PT IS COMFORTABLE AT THIS TIME. CALL LIGHT W/REACH. LT FA AV SHUNT IN PLACE WITH BRUIT AND THRILL SOUND, RT FA HL IN TACT NO S\S INFECTION NOTED WILL CONT TO MONITOR CLOSELY ,BED IN LOWEST AND LOCKED POSITION , PLAN OF CARE DISCUSSED WITH PATIENT
[2017-03-26 20:00] VITALS: BP 107/62
--- NOTE | 2017-03-26 20:00 | NUR ---
MS RN NOTE PATIENT BEGAN DIALYSIS. TOLERATING WELL.
--- NOTE | 2017-03-26 22:00 | NUR ---
MS RN NOTE DIALYSIS COMPLETE. 600ML OUT. PATIENT TOLERATED WELL. NO BLEEDING OR BRUISING.
[2017-03-26] MEDS: SENNOSIDES 8.6 MG TABLET GT SCH (22:28)
[2017-03-26] MEDS: ATORVASTATIN 40 MG TABLET GT SCH (22:29)
[2017-03-26] MEDS: INSULIN DETEMIR 100 UNIT/ML CARTRIDGE SQ SCH (22:30)
--- NOTE | 2017-03-27 | NUR ---
MS RN NOTE BLOOD SUGAR 114. NO COVERAGE NEEDED.
[2017-03-27 04:00] VITALS: BP 105/53
--- NOTE | 2017-03-27 06:00 | NUR ---
MS RN NOTE PT AWAKE ASLEEP. NO GRIMACE OR MOANING NOTED. NOT IN ANY ACUTE DISTRESS. PT ON T-PIECE, COOL AEROSOL ON 5L O2 SATURATING @ 100%,. SUCTIONED FOR AIRWAY CLEARANCE. ON GOING GT FEEDING @ 30CC/HR, NO GASTRIC RESIDUAL, FLUSHED, PATENT AND TOLERATING FEEDING WELL.KEEP HOB ELEVATED AT ALL TIME , PT IS COMFORTABLE AT THIS TIME. CALL LIGHT W/REACH. LT FA AV SHUNT IN PLACE WITH BRUIT AND THRILL SOUND, RT FA HL IN TACT NO S\S INFECTION NOTED WILL CONT TO MONITOR CLOSELY ,BED IN LOWEST AND LOCKED POSITION , WILL ENDORSE TO DAY SHIFT FOR JOSE.
[2017-03-27] MEDS: BLOOD SUGAR DIAGNOSTIC 1 EACH STRIP IN SCH ×4 (06:43→17:07)
[2017-03-27] MEDS: INSULIN REGULAR, HUMAN 100 UNIT/ML 3 ML VIAL SQ PRN ×2 (06:47→11:35)
[2017-03-27 07:02] LABS: CARBON DIOXIDE 24 mmol/L (21-32); CHLORIDE 91 mmol/L (98-107); CREATININE 4.8 mg/dL (0.6-1.3); GLUCOSE 168 mg/dL (74-106); MAGNESIUM 2.7 mg/dL (1.8-2.4); PHOSPHORUS 5.4 mg/dL (2.5-4.9); POTASSIUM 5.2 mmol/L (3.5-5.1); SODIUM SERUM 130 mmol/L (136-145)
[2017-03-27 07:05] LABS: UREA NITROGEN, BLOOD 82 mg/dL (7-18)
[2017-03-27 07:40] LABS: BASOPHILS # (AUTO) 0.1 /CMM (0.0-0.2); BASOPHILS % (AUTO) 0.8 % (0.0-2.0); EOSINOPHILS # (AUTO) 0.3 /CMM (0.0-0.7); EOSINOPHILS % (AUTO) 2.9 % (0.0-6.0); HEMATOCRIT 23 % (39-51); HEMOGLOBIN 7.4 g/dL (13.5-17.5); LYMPHOCYTES # (AUTO) 1.4 /CMM (0.8-4.8); LYMPHOCYTES % (AUTO) 15.9 % (20.0-44.0); MEAN CORPUSCULAR HEMOGLOBIN 29 PG (26.0-33.0); MEAN CORPUSCULAR HGB CONC 33 g/dl (31.0-36.0); MEAN CORPUSCULAR VOLUME 89 fL (80-96); MONOCYTES # (AUTO) 0.9 /CMM (0.1-1.30); MONOCYTES % (AUTO) 10.6 % (2.0-12.0); NEUTROPHILS # (AUTO) 6.2 /CMM (1.8-8.9); NEUTROPHILS % (AUTO) 69.8 % (43.0-81.0); PLATELET COUNT (AUTO) 346 /CMM (150-450); RDW COEFFICIENT OF VARIATION 14.2 (11.5-15.0); RED BLOOD CELL COUNT(AUTO) 2.56 MIL/uL (4.5-6.0); WHITE BLOOD COUNT (AUTO) 8.9 K/uL (4.3-11.0)
[2017-03-27 08:00] VITALS: BP 95/46
[2017-03-27] MEDS: SEVELAMER CARBONATE 800 MG TABLET PO SCH ×3 (08:04→17:07)
[2017-03-27] MEDS: ASPIRIN 81 MG TAB.CHEW PO SCH (08:04)
[2017-03-27] MEDS: LEVOTHYROXINE SODIUM 50 MCG TABLET GT SCH (08:04)
[2017-03-27] MEDS: VIT B CMPLX 3/FA/VIT C/BIOTIN 1 TAB TABLET PO SCH (08:04)
[2017-03-27] MEDS: LACTOBACILLUS RHAMNOSUS GG 1 EACH CAP.SPRINK GT SCH ×2 (08:05→17:07)
[2017-03-27] MEDS: LEVETIRACETAM (250 MG) 250 MG TABLET PO SCH (08:05)
[2017-03-27] MEDS: ASCORBIC ACID 500 MG TABLET GT SCH (08:05)
[2017-03-27] MEDS: LINAGLIPTIN 5 MG TABLET GT SCH (08:05)
[2017-03-27] MEDS: PANTOPRAZOLE 40 MG VIAL IV SCH (08:08)
[2017-03-27] MEDS: MINOXIDIL (2.5MG) 2.5 MG TABLET GT SCH (08:51)
[2017-03-27] MEDS: RENAL NOVASOURCE 1,000 ML BOTTLE GT PRN (10:00)
[2017-03-27] MEDS ORDERED: RXVAN XX (14:22)
[2017-03-27 16:00] VITALS: BP 90/57
--- NOTE | 2017-03-27 17:21 | NUR ---
FLOORING HELPER NOTE PT DC TO [facility]. REPORT GIVEN TO BRISSA DAVEY @ 1500. PT STABLE WITHIN PT BASELINE . REMOVED ID BAND. IV PATENT AND INTACT WILL CONTINUE ON IV ABX @ [facility]. DC INSTRUCTIONS GIVEN TO EMT. EXIT CARE DONE. GT INTACT AND FLUSHED. PT TRANSPORTED VIA AMBULANCE. SUKHJINDER HOLLY CALLED AND NOTIFIED OF DISCHARGE. SKIN INTACT SACRAL DISCOLORATION. PHOTO TAKEN. PT CLEAN WARM AND DRY. BRISSA DAVEY CALLED BEFORE DC TO NOTIFY B/P 105/64. PERSONAL BLANKET TAKEN WITH EMT.
[2017-03-28] MEDS ORDERED: ONDANSETRON HCL/PF 4 MG/2 ML VIAL ONE (07:32)
== END 2017-03-27 17:28 | DRG 871 ==
LOC: ER 11:00 → TELE-TD 13:14 → TELE1 03-23 10:14 → MEDSG1 03-26 10:40
PROC: 5A1D70Z Performance of Urinary Filtration, Intermittent, Less than 6 Hours Per Day (ICD-10-PCS; principal; 2017-03-21)
DX: A41.9 Sepsis, unspecified organism (principal); G93.40 Encephalopathy, unspecified; Z99.11 Dependence on respirator [ventilator] status; E44.0 Moderate protein-calorie malnutrition; J96.11 Chronic respiratory failure with hypoxia; E87.2 Acidosis; Z93.0 Tracheostomy status; E11.22 Type 2 diabetes mellitus with diabetic chronic kidney disease; I48.91 Unspecified atrial fibrillation; E83.51 Hypocalcemia; N18.6 End stage renal disease; E87.1 Hypo-osmolality and hyponatremia; I12.0 Hypertensive chronic kidney disease with stage 5 chronic kidney disease or end stage renal disease; I31.3 Pericardial effusion (noninflammatory); I31.9 Disease of pericardium, unspecified; R13.10 Dysphagia, unspecified; D63.1 Anemia in chronic kidney disease; E03.9 Hypothyroidism, unspecified; E78.5 Hyperlipidemia, unspecified; G20 Parkinson's disease; G40.909 Epilepsy, unspecified, not intractable, without status epilepticus; Z93.1 Gastrostomy status; Z86.73 Personal history of transient ischemic attack (TIA), and cerebral infarction without residual deficits; Z88.0 Allergy status to penicillin; K21.9 Gastro-esophageal reflux disease without esophagitis; Z99.2 Dependence on renal dialysis; Z79.899 Other long term (current) drug therapy; J44.9 Chronic obstructive pulmonary disease, unspecified; E87.5 Hyperkalemia; D63.8 Anemia in other chronic diseases classified elsewhere; E87.70 Fluid overload, unspecified; F03.90 Unspecified dementia, unspecified severity, without behavioral disturbance, psychotic disturbance, mood disturbance, and anxiety; R94.31 Abnormal electrocardiogram [ECG] [EKG]
CPT/HCPCS: 31720; 36415; 71010-TC; 80048-TC; 80061-TC; 80076-TC; 80202-TC; 82962-TC; 83605-TC; 83735-TC; 83880; 84100-TC; 84443-TC; 84484-TC; 85025-TC; 85652-TC; 85730-TC; 86140-TC; 87040-TC; 87081-TC; 90935-TC; 93307-TC; 93308-TC; 94640-TC; A4216; A4606; A4623; A6253; A6402; C9113; J1644; J1815; J2185; J2405; J3370; J7050; J7060; P9047; Z7610

== ENCOUNTER 2017-03-28 06:59 | Inpatient (IN) | payer MEDICARE, OTHER ==
[~2017-03-28] VITALS: Ht 170.2 cm; Wt 64.9 kg
[~2017-03-28 06:59] MED LIST: ACET160L15 GT; ACET160S GT; AMIN887L GT; AMLO5TAB4 GT; ASCO500S2 GT; ATOR40TA GT; BLOO-668 IN; CLON0.1T GT; FOLI0.8T2 GT; HYDR-4076 GT; INSU100V28 SQ; INSU100V7 SQ; LACT10SO GT; LEVE500S GT; LEVO50TA8 GT; LINA5TAB GT; MINO10TA2 GT; OMEG500C GT; OMEP40CA37 GT; ONDA4TAB5 GT; PROC25SU31 RC; RXVAN XX; SENN8.6T6 GT; SEVE800T8 GT
--- NOTE | 2017-03-28 07:00 | NUR ---
PT TO ED ROOM 05. BIB PRIVATE EMT FROM [facility]IS [facility],DIALYSIS CATHETER MALFUNCTION AFTER 1 HR INTO HEMODIALYSIS. A/A/O x 1. SIDE RAISL UP. HOB ELEVATED. CHANGED TO CLEAN DIPER, NO PRESSURE SORES NOTED ON BACK/SACRUM UPON ASSESSMENT. R HAND G 24 IV ACCESS POA. CONNECTED TO MONITOR. RT AT BEDSIDE FOR RESP MANAGEMENT. SEEN AND EVALUATED BY ED PROVIDER.
[2017-03-28] MEDS ORDERED: IV NS 0.9% 1,000 ML BAG IV ONE ×2 (07:30→09:00)
[2017-03-28] MEDS ORDERED: ONDANSETRON HCL/PF 4 MG/2 ML VIAL IVP ONE (07:30)
--- NOTE | 2017-03-28 07:30 | NUR ---
CODE SEPSIS CALLED
--- NOTE | 2017-03-28 08:00 | NUR ---
R WRIST G 20 IV STARTED. BLOOD TESTS AND BLOOD CULTURES OBTAINED PRIOR TO ANY IV ATB ADMINISTRATION.
[2017-03-28] MEDS ORDERED: ONDANSETRON HCL/PF 4 MG/2 ML VIAL ONE (08:07)
[2017-03-28] MEDS: ACETAMINOPHEN 650 MG/SUPP.RECT RC ONE ×2 (08:19→09:20)
--- NOTE | 2017-03-28 08:20 | NUR ---
UNABLE TO OBTAINE URINE SAMPLE VIA STRAIGHT IN/OUT ABRAMS CATH 2/2 POSSIBLE URETHRAL STRICTURE , UNABLE TO PASS CATHETER. DR SIGALA MADE AWARE.
[2017-03-28 08:21] LABS: BASOPHILS % (AUTO) 0.3 % (0.0-2.0); EOSINOPHILS # (AUTO) 0.1 /CMM (0.0-0.7); EOSINOPHILS % (AUTO) 0.4 % (0.0-6.0); HEMATOCRIT 25 % (39-51); HEMOGLOBIN 8.2 g/dL (13.5-17.5); LYMPHOCYTES # (AUTO) 1.8 /CMM (0.8-4.8); LYMPHOCYTES % (AUTO) 10.4 % (20.0-44.0); MEAN CORPUSCULAR HEMOGLOBIN 29 PG (26.0-33.0); MEAN CORPUSCULAR HGB CONC 32 g/dl (31.0-36.0); MEAN CORPUSCULAR VOLUME 90 fL (80-96); MONOCYTES # (AUTO) 0.8 /CMM (0.1-1.30); NEUTROPHILS # (AUTO) 14.3 /CMM (1.8-8.9); NEUTROPHILS % (AUTO) 83.9 % (43.0-81.0); PLATELET COUNT (AUTO) 373 /CMM (150-450); RDW COEFFICIENT OF VARIATION 15.4 (11.5-15.0); RED BLOOD CELL COUNT(AUTO) 2.83 MIL/uL (4.5-6.0)
[2017-03-28 08:37] LABS: ALANINE AMINOTRANSFERASE 45 U/L (12-78); ALBUMIN 2.6 g/dL (3.4-5.0); ALKALINE PHOSPHATASE 209 U/L (46-116); ASPARTATE AMINOTRANSFERASE 63 U/L (15-37); BILIRUBIN,DIRECT 0.1 mg/dL (0.0-0.2); BILIRUBIN,TOTAL 0.4 mg/dL (0.2-1.0); CALCIUM, SERUM 8.7 mg/dL (8.5-10.1); CARBON DIOXIDE 25 mmol/L (21-32); CHLORIDE 90 mmol/L (98-107); CREATININE 5.6 mg/dL (0.6-1.3); GLUCOSE 214 mg/dL (74-106); LIPASE 349 U/L (73-393); POTASSIUM 5.4 mmol/L (3.5-5.1); SODIUM SERUM 132 mmol/L (136-145)
[2017-03-28 08:38] LABS: UREA NITROGEN, BLOOD 97 mg/dL (7-18)
[2017-03-28 08:39] LABS: TROPONIN I 0.026 ng/mL (0.00-0.056)
[2017-03-28] MEDS ORDERED: CEFTRIAXONE 1GM BAG (ER ONLY) 1 GM/50 ML PIGGYBACK IV ONE (09:00)
--- NOTE | 2017-03-28 09:04 | NUR ---
MICHELLE REAL G 18 STARTED BY ELIZABETH MATTHEWS
[2017-03-28] MEDS ORDERED: ACETAMINOPHEN 160 MG/5 ML GT ONE (09:30)
[2017-03-28 09:33] LABS: INR 1.14 (0.87-1.13); PROTHROMBIN TIME 11.9 SECS (9.5-12.7)
--- NOTE | 2017-03-28 12:20 | NUR ---
REPORT GIVEN TO CELINE MATTHEWS FOR JOSE
[2017-03-28 12:30] VITALS: BP 118/65
--- NOTE | 2017-03-28 12:30 | NUR ---
RN ADMITTING NOTES: REC'D REPORT GENER OIL SPECULATOR. PT TRANSFERRED VIA GURNEY ACCOMPANIED BY RN, PRODUCE WEIGHER AND RT. PT ADMITTED AT RM 115/1, SUE STATUS. PT IS ALERT, FOLLOWS TRACKS W/ VOICE. ON COOL AEROSOL VIA TRACH, SATURATING AT 100%. PLACED ON TELEMONITOR, SR W/ BBB HR [address]PM[address]UBE IN [address], CLAMPED AT THIS TIME. HAS MICHELLE MIDLINE AND R HAND G24, SL, BOTH FLUSHED, PATENT & INTACT W/ NO S/SX OF INFECTION/INFILTRATION . HAS AV SHUNT ON TOMMY W/ DRY DRESSING. PER OIL SPECULATOR, PT HAD HD THIS AM FOR 1 HR BUT ACCESS MALFUNCTIONED. ROUTINE ADMISSION DONE. SKIN ASSESSMENT DONE, WOUND PHOTOS TAKEN AND PLACED IN CHART. PROVIDED COMFORT & SAFETY MEASURES. BED KEPT LOW & IN LOCKED POS. CALL LIGHT PLACED W/IN REACH. WILL CONTINUE TO MONITOR AND ATTEND PT NEEDS. DR. CANALES MADE AWARE OF ADMISSION. PSYCHIATRIC SOCIAL WORKER TO DO MED RECON.
[2017-03-28] MEDS ORDERED: methylPREDNISolone SOD SUCC 125 MG/2ML VIAL IV ONE (14:00)
[2017-03-28] MEDS ORDERED: MAG HYDROX/AL HYDROX/SIMETH 30 ML UDC PO PRN (14:00)
[2017-03-28] MEDS ORDERED: ACETAMINOPHEN 325 MG TABLET PO PRN (14:00)
[2017-03-28] MEDS ORDERED: MAGNESIUM HYDROXIDE 30 ML UDC PO PRN (14:00)
[2017-03-28] MEDS ORDERED: HYDROCODONE/APAP 5/325MG 1 EACH TABLET PO PRN (14:00)
[2017-03-28] MEDS ORDERED: ONDANSETRON HCL/PF 4 MG/2 ML VIAL IVP PRN (14:00)
[2017-03-28] MEDS ORDERED: Z GUARD REMEDY 2 OZ OINT TP PRN (14:00)
[2017-03-28] MEDS ORDERED: BENZOIN COMPOUND TINCT 60 ML BOTTLE TP ONE (15:30)
--- NOTE | 2017-03-28 15:50 | NUR ---
RN NOTES: PT REFERRED TO DR. CANALES FOR HD ACCESS. PER DR. CANALES, PT ALREADY REFERRED TO DR. BRICENO. NOTED ACKNOWLEDGEMENT BY DR. BRICENO.
--- NOTE | 2017-03-28 15:50 | NUR ---
RN NOTES: BENZOIN MEDICATION WAS NOT GIVEN TO THE PT. DRUG WAS TAKEN BY DR. PARKER BARRIGA.
[2017-03-28 16:00] VITALS: BP 124/67
[2017-03-28] MEDS ORDERED: RENAL NOVASOURCE 1,000 ML BOTTLE GT PRN (16:00)
--- NOTE | 2017-03-28 16:30 | NUR ---
RN NOTES: COAL HANDLER OF DR. CANALES MADE THE MED RECON. CN FAXED IT TO PHARMACY.
[2017-03-28] MEDS ORDERED: ACETAMINOPHEN 640 MG GT PRN (17:00)
[2017-03-28] MEDS ORDERED: ACETAMINOPHEN 650 MG/20.3 ML UDC PO PRN (17:00)
[2017-03-28] MEDS ORDERED: ONDANSETRON HCL 4 MG/5 ML SOLUTION GT PRN (17:30)
[2017-03-28] MEDS: PROSOURCE / PROSTAT (PYXIS) 30 ML UDC GT SCH (17:32)
[2017-03-28] MEDS: hydrALAZINE HCL 25 MG TABLET GT SCH (17:33)
[2017-03-28] MEDS ORDERED: INSULIN REGULAR, HUMAN 100 UNIT/ML 3 ML VIAL SQ PRN (18:00)
[2017-03-28] MEDS ORDERED: BLOOD SUGAR DIAGNOSTIC 1 EACH STRIP IN SCH (18:00)
[2017-03-28] MEDS ORDERED: DEXTROSE 50%-WATER 50 ML DISP.SYRIN IV PRN (18:00)
[2017-03-28] MEDS: RENAL NOVASOURCE 1,000 ML BOTTLE GT PRN (18:32)
[2017-03-28] MEDS: INSULIN REGULAR, HUMAN 100 UNIT/ML 3 ML VIAL SQ PRN (18:44)
[2017-03-28] MEDS ORDERED: FEE PK DOSING 1 MIN EA MC ONE (18:47)
--- NOTE | 2017-03-28 18:47 | NUR ---
RN CLOSING NOTES: NO ACUTE CHANGES NOTED W/IN SHIFT. PT TOLERATED COOL AEROSOL VIA TRACH, SECRETIONS SUCTIONED. ON TELEMONITOR, STILL SR W/ OCC PVC'S. IV LINES KEPT PATENT & INTACT W/ NO INFECTION/INFILTRATION. GT KEPT INTACT W/ NOVASOURCE X 30 CC/HR INFUSING WELL. KEPT WELL RESTED. NEEDS ATTENDED. BED KEPT LOW & IN LOCKED POS. CALL LIGHT PLACED W/IN REACH. WILL ENDORSE TO PM RN FOR JOSE.
--- NOTE | 2017-03-28 19:50 | NUR ---
RN SUE INITIAL NOTE PT RECEIVED IN NO ACUTE DISTRESS AT THIS TIME. ABDOMINAL US BEING DONE IN ROOM CURRENTLY. TRACH WIT COOL AEROSOL BEING TOLERATED WELL.PT IS ABLE TO TRACK WITH EYES BUT NO SPEAKING. ON TELE WITH SR W/PVC. PT HAS GT FEEDING RUNNING AND BEING TOLERATED WELL. PT HAS MICHELLE MIDLINE AND R HAND 24G AND LEFT ARM AVF. COMFORT AND SAFETY MEASURES TO BE ENSURED DURING THE SHIFT. WILL CONTINUE TO MONITOR FOR ANY CHANGES DURING THE SHIFT.
[2017-03-28 20:00] VITALS: BP 140/50
[2017-03-28] MEDS: SEVELAMER CARBONATE 0.8 GM POWD.PACK GT SCH (20:57)
[2017-03-28] MEDS: MEROPENEM 500 MG in IV NS 0.9% 50 ML IV SCH (20:57)
[2017-03-28] MEDS: LEVETIRACETAM SOL (5 ML) 100 MG/ML UDC GT SCH (20:57)
[2017-03-28] MEDS: AMLODIPINE BESYLATE 5 MG TABLET GT SCH (20:58)
[2017-03-28] MEDS ORDERED: VANCOMYCIN 1 GM in IV D5W 250 ML IV ONE (21:00)
[2017-03-28] MEDS ORDERED: ZOLPIDEM TARTRATE 5 MG TABLET PO PRN (22:00)
[2017-03-28] MEDS: ATORVASTATIN 40 MG TABLET GT SCH (22:48)
[2017-03-28] MEDS: LACTULOSE 10 G/15 ML UDC (PYXIS) GT SCH (22:48)
[2017-03-28] MEDS: SENNOSIDES 8.6 MG TABLET GT SCH (22:48)
[2017-03-28] MEDS: INSULIN DETEMIR 100 UNIT/ML CARTRIDGE SQ SCH (23:06)
[2017-03-29] VITALS (15 sets, daily range): BP systolic 115–160; BP diastolic 62–85
[2017-03-29] MEDS: BLOOD SUGAR DIAGNOSTIC 1 EACH STRIP IN SCH ×5 (00:48→23:38)
[2017-03-29] MEDS: INSULIN REGULAR, HUMAN 100 UNIT/ML 3 ML VIAL SQ PRN ×3 (00:50→23:37)
[2017-03-29] MEDS: SEVELAMER CARBONATE 0.8 GM POWD.PACK GT SCH ×3 (05:41→20:02)
--- NOTE | 2017-03-29 06:31 | NUR ---
RN SUE CLOSING NOTE PT REMAINS IN NO ACUTE DISTRESS. ALL VITALS WNL. ALL DUE MEDICATIONS GIVEN ORDERED AND TOLERATED WELL. GTF IS HELD DUE TO SURGERY LATER TODAY. MICHELLE MIDLINE IS RUNNING TKO. COMFORT AND SAFETY MEASURES WERE ENSURED DURING THE SHIFT. WILL ENDORSE CARE TO AM NURSE.
--- NOTE | 2017-03-29 07:45 | NUR ---
RN SUE NOTE PT RECEIVED IN NO ACUTE DISTRESS AT THIS TIME. TRACH WIT COOL AEROSOL BEING TOLERATED WELL.PT IS ABLE TO TRACK WITH EYES BUT NO SPEAKING. ON TELE WITH SR W/PAC. PT HAS GT FEEDING IS HOLD AT THIS TIME ON NPO FOR NOW, UNDERGO HD CATH PLACEMENT TOLERATED WELL. PT HAS MICHELLE MIDLINE AND R HAND 24G AND LEFT ARM AVF. COMFORT AND SAFETY MEASURES ENSURED . WILL CONTINUE TO MONITOR FOR ANY CHANGES, WITH TRACH TO COOLER AEROSOL FIO2 40% WILL CONT TO MONITOR CLOSELY , AMBU BAG AT [facility] AT ALL TIME
[2017-03-29] MEDS: MEROPENEM 500 MG in IV NS 0.9% 50 ML IV SCH ×2 (08:02→19:45)
--- NOTE | 2017-03-29 08:13 | NUR ---
WOUND CARE CONSULT PATIENT SEEN AND SKIN INTEGRITY ASSESSMENT DONE. SEE SOLAR FIELD SERVICE TECHNICIAN ASSESSMENT IN PCS FOR TODAY. PATIENT WITH YAMILETH AT 11. PATIENT ON ISOFLEX LOW AIRLOSS SPECIALTY BED FOR SKIN MANAGEMENT. RECOMMEND TURNING SCHED Q 2 HOURS, BILATERAL HEEL FLOATING PATIENT CONDITION PERMITS, AND Z GUARD FOR SKIN/MOISTURE MANAGEMENT. ALL SKIN MANAGEMENT DISCUSSED WITH NURSING AT THE BEDSIDE. DNP IN AGREEMENT WITH PLAN OF CARE. Addendum: 03/29/17 at 0818 by GENARO NAQVI WNDNU Amended: Links added.
[2017-03-29] MEDS: VIT B CMPLX 3/FA/VIT C/BIOTIN 1 TAB TABLET GT SCH (08:22)
[2017-03-29] MEDS: LEVETIRACETAM SOL (5 ML) 100 MG/ML UDC GT SCH ×2 (08:22→20:01)
[2017-03-29] MEDS: PANTOPRAZOLE 40 MG/PACK PACK GT SCH (08:22)
[2017-03-29] MEDS: MINOXIDIL (2.5MG) 2.5 MG TABLET PO SCH (08:24)
[2017-03-29] MEDS: hydrALAZINE HCL 25 MG TABLET GT SCH ×3 (08:24→16:23)
[2017-03-29] MEDS: PROSOURCE / PROSTAT (PYXIS) 30 ML UDC GT SCH ×2 (08:25→16:24)
[2017-03-29] MEDS: AMLODIPINE BESYLATE 5 MG TABLET GT SCH ×2 (08:25→20:02)
[2017-03-29] MEDS: LINAGLIPTIN 5 MG TABLET GT SCH (08:26)
[2017-03-29 08:31] LABS: CALCIUM, SERUM 7.7 mg/dL (8.5-10.1); CARBON DIOXIDE 23 mmol/L (21-32); CHLORIDE 95 mmol/L (98-107); CREATININE 6.7 mg/dL (0.6-1.3); GLUCOSE 168 mg/dL (74-106); PHOSPHORUS 7.5 mg/dL (2.5-4.9); POTASSIUM 5.5 mmol/L (3.5-5.1); SODIUM SERUM 135 mmol/L (136-145)
[2017-03-29 08:37] LABS: CHOLESTEROL 72 mg/dL (<200); HDL CHOLESTEROL 38 mg/dL (40-60); LDL 25 mg/dL (0-99); TRIGLYCERIDES 106 mg/dL (30-150)
[2017-03-29 08:40] LABS: UREA NITROGEN, BLOOD 119 mg/dL (7-18)
[2017-03-29 08:41] LABS: BASOPHILS % (AUTO) 0.1 % (0.0-2.0); EOSINOPHILS # (AUTO) 0.1 /CMM (0.0-0.7); EOSINOPHILS % (AUTO) 0.7 % (0.0-6.0); LYMPHOCYTES # (AUTO) 1.3 /CMM (0.8-4.8); LYMPHOCYTES % (AUTO) 10.1 % (20.0-44.0); MEAN CORPUSCULAR HEMOGLOBIN 29 PG (26.0-33.0); MEAN CORPUSCULAR HGB CONC 32 g/dl (31.0-36.0); MEAN CORPUSCULAR VOLUME 89 fL (80-96); MONOCYTES % (AUTO) 7.3 % (2.0-12.0); NEUTROPHILS # (AUTO) 10.8 /CMM (1.8-8.9); NEUTROPHILS % (AUTO) 81.8 % (43.0-81.0); PLATELET COUNT (AUTO) 296 /CMM (150-450); RDW COEFFICIENT OF VARIATION 15.9 (11.5-15.0); RED BLOOD CELL COUNT(AUTO) 2.23 MIL/uL (4.5-6.0); WHITE BLOOD COUNT (AUTO) 13.3 K/uL (4.3-11.0)
[2017-03-29 08:44] LABS: HEMATOCRIT 20 % (39-51); HEMOGLOBIN 6.4 g/dL (13.5-17.5)
[2017-03-29] MEDS ORDERED: Z GUARD REMEDY 2 OZ OINT TP SCH (09:00)
[2017-03-29] MEDS ORDERED: Medication Not On Formulary EA (Omega-3 Fatty Acids (Fish Oil) 1,000 MG) GT SCH (09:00)
[2017-03-29] MEDS ORDERED: ASCORBIC ACID SYRUP 500 MG/5 ML UDC GT SCH (09:00)
--- NOTE | 2017-03-29 09:00 | NUR ---
SUE RN NOTE HESHAM LIQUID NOT AVAILABLE, PARKER FROM PHARMACY NOTIFIED ,WILL F\U
--- NOTE | 2017-03-29 09:00 | NUR ---
SUE RN NOTE PER SALONI FROM [facility] [place] TO GIVE MEDS VIA G TUBE IN AM , SPOKE WITH ANESTHESIOLOGISTS
[2017-03-29 09:06] LABS: BAND % (MANUAL) 2 % (0.0-5.0); LYMPHOCYTES % (MANUAL) 10 % (16-48); METAMYELOCYTES % 1 % (0-0); MONOCYTES % (MANUAL) 8 % (0-11.0); NEUTROPHILS % (MANUAL) 79 (42-76)
[2017-03-29 09:57] LABS: ABG BASE EXCESS -3.8 mmol/L; ABG OXYGEN SATURATION 95.3 % (92.0-98.5); ABG PCO2 34.6 mmHg (35.0-45.0); ABG PH 7.393 (7.350-7.450); ABG PO2 89.5 mmHg (75.0-100.0); AaDO2 155.9 mmHg; MetHb 0.6 % (0.0-1.5); O2Hb 93.8 % (94.0-97.0); SITE, ABG Right Radial
--- NOTE | 2017-03-29 10:01 | NUR ---
SUE MATTHEWS NOTE ABG DONE ORDERED Addendum: 03/29/17 at 1010 by KATTY PITTS RN ON BREATHING TX ORDERED BY RT
--- NOTE | 2017-03-29 10:34 | NUR ---
SUE RN NOTE SPOKE WITH DR PARKER BARRIGA DNP NOTIFIED THAT HG 6.4 WITH ORDER 2 UN ITS PRBC, ORDER CARRIED OUT , DR Ángel WALLIS DISPENSARY CLERK AT BEDSIDE, 2D ECHO DOING NOW ,WILL F\U Addendum: 03/29/17 at 1040 by KATTY PITTS RN SPOKE WITH SO AWARE THAT BLOOD TRANSFUSION WILL BE DONE TODAY
[2017-03-29] MEDS: methylPREDNISolone SOD SUCC 125 MG/2ML VIAL IV SCH ×2 (11:53→16:23)
[2017-03-29] MEDS ORDERED: EPOETIN ALFA (10,000 UNIT) 10,000 UNIT/ML VIAL SQ ONE (12:00)
[2017-03-29] MEDS ORDERED: SODIUM POLYSTYRENE SULFONATE 15 G/60 ML BOTTLE GT ONE (13:30)
--- NOTE | 2017-03-29 13:47 | NUR ---
SUE RN NOTE DR KAUR CALLED. STATED THAT SURGERY WILL BE DONE IN AM AT 0700 OK TO LABS BMP GIVE KAYEXALATE, AWARE THAT K 5.5 AND RESUME FEEDING NPO AFTER MIDNIGHT
[2017-03-29] MEDS: RENAL NOVASOURCE 1,000 ML BOTTLE GT PRN (13:49)
--- NOTE | 2017-03-29 13:50 | NUR ---
SUE MATTHEWS NOTE G TUBE FEEDING STARTED ORDERED KEEP HOB ELEVATED AT ALL TIME Addendum: 03/29/17 at 1359 by KATTY PITTS RN MARIBEL LARA IST UNIT PRBC STARTED ORDERED, NO ADVERSE REACTION NOTED AT THIS TIME ,WILL CONT TO MONITOR CLOSELY Addendum: 03/29/17 at 1402 by KATTY PITTS RN PER DR DARIELA LU TO TRANSFUSE OVER 4 HOUR PRBC
[2017-03-29] MEDS ORDERED: VANCOMYCIN 500 MG in IV D5W 100 ML IV PRN (16:00)
[2017-03-29] MEDS: LEVOTHYROXINE SODIUM 50 MCG TABLET GT SCH (16:24)
[2017-03-29] MEDS: LACTOBACILLUS RHAMNOSUS GG 1 EACH CAP.SPRINK GT SCH (16:24)
--- NOTE | 2017-03-29 17:35 | NUR ---
SUE RN NOTE I ST UNIT PRBC COMPLETED, NO ADVERSE REACTION NOTED, WILL F\U
--- NOTE | 2017-03-29 18:29 | NUR ---
SUE RNNNOTE ALL NEEDS ATTENDED, WILL HAVE NPO AFTER MID NIGHT , WILL HAVE PERMA CATH FOR TOMORROW WITH DR BRICENO , CONT G TUBE FEEDING ORDERED ,KEEP HOB ELEVATED ALL TIME , NOT IN ACUTE DISTRESS, CALL LIGHT WITHIN REACH
--- NOTE | 2017-03-29 19:00 | NUR ---
SUE RN NOTE ENDORSED RN ADAMS TO TRANSFUSE 2 ND UNIT OF PRBC
--- NOTE | 2017-03-29 20:00 | NUR ---
major rn notes received pts on bed awake and responsive , on tele monitor sr -85 sating 97%. no sob no distress noted all needs attended too, due meds given as ordered, pts on gt feeding [employer] at 30cc/hr in progress , no residual noted ,pts on cool aerosol well tolerated, pts on av shunt on left forearm malfunction . with right ua midline intact and patent, v/s stable afebrile .pts will be npo post midnight for permacath insertion.will continue to monitor pts.
[2017-03-29] MEDS: SENNOSIDES 8.6 MG TABLET GT SCH (21:42)
[2017-03-29] MEDS: ATORVASTATIN 40 MG TABLET GT SCH (21:42)
[2017-03-29] MEDS: LACTULOSE 10 G/15 ML UDC (PYXIS) GT SCH (21:45)
[2017-03-29] MEDS: INSULIN DETEMIR 100 UNIT/ML CARTRIDGE SQ SCH (22:00)
--- NOTE | 2017-03-29 22:18 | NUR ---
major rn notes 2nd unit of blood started at 2218 hrs , v/s stable afebrile, no adverse side effect noted no complication , will continue to monitor ,no sob no distress noted.
--- NOTE | 2017-03-29 23:00 | NUR ---
major rn notes accuchecked done , blood sugar of 261mg/dl no coverage given, due to pts npo for surgery
[2017-03-30] VITALS (8 sets, daily range): BP systolic 106–167; BP diastolic 50–85
--- NOTE | 2017-03-30 01:00 | NUR ---
major rn notes blood tranfussion completed , no ase or complication. pts maintain npo p mn.will continue to monitor pts.
[2017-03-30] MEDS: CLONIDINE HCL 0.1 MG TABLET GT PRN (04:14)
--- NOTE | 2017-03-30 05:00 | NUR ---
SUE RN NOTES BLOOD SUGAR AT 5AM IS 181MG/DL NO COVERAGE GIVEN DUE TO NPO.SURGERY.
[2017-03-30] MEDS: SEVELAMER CARBONATE 0.8 GM POWD.PACK GT SCH ×3 (06:00→21:27)
[2017-03-30] MEDS ORDERED: IOHEXOL 0 ML IV ONE (06:12)
[2017-03-30] MEDS ORDERED: LIDOCAINE 1% INJ 50 ML MDV IJ ONE (06:12)
[2017-03-30] MEDS ORDERED: HEPARIN SODIUM, PORCINE 1,000 UNIT/ML VIAL ONE (06:12)
--- NOTE | 2017-03-30 06:20 | NUR ---
SUE RN NOTES PTS WAS UI ARCHITECT BY OR NURSE FOR PERMCATH INSERTION ,PTS REMAINS NPO REPORT GIVEN TO SALONI OR NURSE.
[2017-03-30] MEDS ORDERED: ANESTHESIA TRAY IN PYXIS 1 EA TRAY MC ONE (06:23)
[2017-03-30] MEDS ORDERED: CLINDAMYCIN 900 MG/6 ML VIAL ONE (06:24)
[2017-03-30] MEDS ORDERED: FENTANYL PF 100MCG/2ML AMPUL ONE (06:24)
[2017-03-30 06:33] LABS: HEMATOCRIT 26 % (39-51); HEMOGLOBIN 8.6 g/dL (13.5-17.5); LYMPHOCYTES % (AUTO) 8.2 % (20.0-44.0); MEAN CORPUSCULAR HEMOGLOBIN 30 PG (26.0-33.0); MEAN CORPUSCULAR HGB CONC 33 g/dl (31.0-36.0); MEAN CORPUSCULAR VOLUME 90 fL (80-96); MONOCYTES # (AUTO) 1.1 /CMM (0.1-1.30); MONOCYTES % (AUTO) 9.1 % (2.0-12.0); NEUTROPHILS # (AUTO) 10.4 /CMM (1.8-8.9); NEUTROPHILS % (AUTO) 82.7 % (43.0-81.0); PLATELET COUNT (AUTO) 287 /CMM (150-450); WHITE BLOOD COUNT (AUTO) 12.6 K/uL (4.3-11.0)
[2017-03-30] MEDS: BLOOD SUGAR DIAGNOSTIC 1 EACH STRIP IN SCH ×4 (06:33→23:02)
[2017-03-30] MEDS: INSULIN REGULAR, HUMAN 100 UNIT/ML 3 ML VIAL SQ PRN ×4 (06:35→23:07)
[2017-03-30 07:30] LABS: CALCIUM, SERUM 7.4 mg/dL (8.5-10.1); CARBON DIOXIDE 22 mmol/L (21-32); CHLORIDE 94 mmol/L (98-107); CREATININE 7.2 mg/dL (0.6-1.3); GLUCOSE 161 mg/dL (74-106); POTASSIUM 4.9 mmol/L (3.5-5.1); SODIUM SERUM 135 mmol/L (136-145)
[2017-03-30 07:49] LABS: UREA NITROGEN, BLOOD 134 mg/dL (7-18)
[2017-03-30 08:15] LABS: MAGNESIUM 3.1 mg/dL (1.8-2.4)
[2017-03-30 08:21] LABS: PHOSPHORUS 8.1 mg/dL (2.5-4.9)
[2017-03-30] MEDS: PROSOURCE / PROSTAT (PYXIS) 30 ML UDC GT SCH ×2 (08:36→17:13)
[2017-03-30] MEDS: PANTOPRAZOLE 40 MG/PACK PACK GT SCH (08:36)
[2017-03-30] MEDS: VIT B CMPLX 3/FA/VIT C/BIOTIN 1 TAB TABLET GT SCH (08:37)
[2017-03-30] MEDS: LEVETIRACETAM SOL (5 ML) 100 MG/ML UDC GT SCH ×2 (08:37→21:24)
[2017-03-30] MEDS: hydrALAZINE HCL 25 MG TABLET GT SCH ×3 (08:37→17:12)
[2017-03-30] MEDS: ASCORBIC ACID 500 MG TABLET GT SCH (08:38)
[2017-03-30] MEDS: predniSONE 20 MG TABLET PO SCH (08:38)
[2017-03-30] MEDS: AMLODIPINE BESYLATE 5 MG TABLET GT SCH ×2 (08:39→21:00)
[2017-03-30] MEDS: MINOXIDIL (2.5MG) 2.5 MG TABLET PO SCH (08:39)
[2017-03-30] MEDS: LACTOBACILLUS RHAMNOSUS GG 1 EACH CAP.SPRINK GT SCH ×2 (08:39→17:12)
[2017-03-30] MEDS: LINAGLIPTIN 5 MG TABLET GT SCH (08:40)
[2017-03-30] MEDS: MEROPENEM 500 MG in IV NS 0.9% 50 ML IV SCH ×2 (08:41→21:23)
--- NOTE | 2017-03-30 09:30 | NUR ---
RN SUE RECEIVED PATIENT AWAKE, ALERT T-PIECE SATURATING 100% UNABLE TO KNOW ORIENTATION RIGHT SUBCLAVIAN PREMACATH INSERTED AT OR RESTARTED FEEDING , MONITORED FOR ANY RESIDUAL MONITORED CLOSELY FOR HD TODAY AWAITING FOR HD NURSE UPDATED FAMILY ABOUT PATIENT'S STATUS
--- NOTE | 2017-03-30 12:30 | NUR ---
TELE1/STEERER OF CARE RECEIVED REPORT FROM NURSE POTTER. ENDORSED PT TO CONTINUE CARE. CL WITHIN REACHED AND SAFETY MAINTAINED.
--- NOTE | 2017-03-30 17:00 | NUR ---
TELE1/RN AFTERNOON ROUNDS NO CHANGE OF CONDITION. PM CARE PROVIDED. ON GOING MONITORING. Addendum: 03/30/17 at 1824 by EVERARDO FIGUEROA RN ADDENDUM: PRN VANCOMYCIN POST HD TX, HELD D/T HIGH LEVEL.
[2017-03-30] MEDS: LEVOTHYROXINE SODIUM 50 MCG TABLET GT SCH (17:12)
--- NOTE | 2017-03-30 19:31 | NUR ---
TELE1/RN AM SHIFT END NOTES ALL NEEDS MET. NO ACUTE CHANGE OF CONDITION NOTED SINCE PT CARE WAS TRANSFERRED TO DE AROUND NOON TIME. ON GOING GT FEEDING @ 30CC/HR. PT ENDORSED TO PM NURSE TO CONTINUE CARE. CL WITHIN REACHED AND SAFETY MAINTAINED.
--- NOTE | 2017-03-30 20:00 | NUR ---
TELE 1 RN NOTE PT IN BED AWAKE. NON VERBAL. ON T PIECE COOL AEROSOL 40% 02 10L. NO DISTRESS OR DISCOMFORT NOTED. NO S/S OF PAIN NOTED. ON TELE SR WITH PAC 87. ON GTF NOVASOURCE AT 30 ML/HR, 0 ML RESIDUAL NOTED. MICHELLE WITH MIDLINE INTACT AND PATENT. REPOSITION HIM Q2H, KEPT HIM DRY AND CLEAN. ALL NEEDS ATTENDED. SIDE RAILS UP X 3 AND CALL LIGHT WITHIN REACH. VSS. CONTINUE TO MONITOR HER.
[2017-03-30] MEDS: SENNOSIDES 8.6 MG TABLET GT SCH (21:23)
[2017-03-30] MEDS: ATORVASTATIN 40 MG TABLET GT SCH (21:23)
[2017-03-30] MEDS: LACTULOSE 10 G/15 ML UDC (PYXIS) GT SCH (21:24)
[2017-03-30] MEDS: INSULIN DETEMIR 100 UNIT/ML CARTRIDGE SQ SCH (23:04)
[2017-03-31] VITALS: BP 129/42
[2017-03-31] MEDS: RENAL NOVASOURCE 1,000 ML BOTTLE GT PRN (01:01)
[2017-03-31 04:00] VITALS: BP 102/57
[2017-03-31] MEDS: SEVELAMER CARBONATE 0.8 GM POWD.PACK GT SCH ×3 (05:48→22:06)
[2017-03-31] MEDS: BLOOD SUGAR DIAGNOSTIC 1 EACH STRIP IN SCH ×4 (05:53→23:27)
[2017-03-31] MEDS: INSULIN REGULAR, HUMAN 100 UNIT/ML 3 ML VIAL SQ PRN ×4 (05:53→23:33)
--- NOTE | 2017-03-31 06:46 | NUR ---
TELE 1 RN NOTE PT IN BED ASLEEP, AROUSABLE, NO DISTRESS OR DISCOMFORT NOTED. ON TELE SR WITH PAC HR 88, NO CHANGE IN CONDITION. GTF INFUSING WELL, 0 ML RESIDUAL NOTED. REPOSITION HIM Q2H. KEPT HIM DRY AND CLEAN. FREQUENTLY SUCTION THE PT. ALL NEEDS ATTENDED. SIDE RAILS UP X 3 AND CALL LIGHT WITHIN REACH. WILL ENDORSE TO DAY SHIFT NURSE FOR CONTINUE TO CARE.
[2017-03-31 07:27] LABS: BASOPHILS % (AUTO) 0.3 % (0.0-2.0); HEMATOCRIT 29 % (39-51); HEMOGLOBIN 9.4 g/dL (13.5-17.5); LYMPHOCYTES # (AUTO) 1.5 /CMM (0.8-4.8); MEAN CORPUSCULAR HEMOGLOBIN 29 PG (26.0-33.0); MEAN CORPUSCULAR HGB CONC 33 g/dl (31.0-36.0); MEAN CORPUSCULAR VOLUME 90 fL (80-96); MONOCYTES # (AUTO) 1.2 /CMM (0.1-1.30); NEUTROPHILS # (AUTO) 12.5 /CMM (1.8-8.9); NEUTROPHILS % (AUTO) 81.7 % (43.0-81.0); PLATELET COUNT (AUTO) 336 /CMM (150-450); RDW COEFFICIENT OF VARIATION 15.4 (11.5-15.0); WHITE BLOOD COUNT (AUTO) 15.3 K/uL (4.3-11.0)
[2017-03-31 08:00] VITALS: BP 165/60
[2017-03-31 08:07] LABS: CALCIUM, SERUM 7.3 mg/dL (8.5-10.1); CARBON DIOXIDE 24 mmol/L (21-32); CHLORIDE 96 mmol/L (98-107); CREATININE 6.4 mg/dL (0.6-1.3); GLUCOSE 151 mg/dL (74-106); MAGNESIUM 2.9 mg/dL (1.8-2.4); PHOSPHORUS 6.7 mg/dL (2.5-4.9); POTASSIUM 4.1 mmol/L (3.5-5.1); SODIUM SERUM 138 mmol/L (136-145); UREA NITROGEN, BLOOD 122 mg/dL (7-18)
[2017-03-31] MEDS: hydrALAZINE HCL 25 MG TABLET GT SCH ×3 (09:00→16:42)
[2017-03-31] MEDS: MINOXIDIL (2.5MG) 2.5 MG TABLET PO SCH (09:00)
[2017-03-31] MEDS: AMLODIPINE BESYLATE 5 MG TABLET GT SCH ×2 (09:00→22:08)
[2017-03-31] MEDS: PANTOPRAZOLE 40 MG/PACK PACK GT SCH (09:01)
[2017-03-31] MEDS: LINAGLIPTIN 5 MG TABLET GT SCH (09:01)
[2017-03-31] MEDS: LACTOBACILLUS RHAMNOSUS GG 1 EACH CAP.SPRINK GT SCH ×2 (09:02→16:31)
[2017-03-31] MEDS: LEVETIRACETAM SOL (5 ML) 100 MG/ML UDC GT SCH ×2 (09:02→22:06)
[2017-03-31] MEDS: VIT B CMPLX 3/FA/VIT C/BIOTIN 1 TAB TABLET GT SCH (09:03)
[2017-03-31] MEDS: predniSONE 20 MG TABLET PO SCH (09:03)
[2017-03-31] MEDS: PROSOURCE / PROSTAT (PYXIS) 30 ML UDC GT SCH ×2 (09:04→16:31)
[2017-03-31] MEDS: ASCORBIC ACID 500 MG TABLET GT SCH (09:04)
[2017-03-31 12:00] VITALS: BP 157/59
[2017-03-31 16:00] VITALS: BP_SYST 161; BP_SYST 167; BP_DIAS 68; BP_DIAS 79
--- NOTE | 2017-03-31 16:15 | NUR ---
RN NOTE CALLED DR. BAZZI PT FAMILY @ BEDSIDE AND PT C/O PAIN S/P NEW HD RCW CATH. DR. BAZZI ORDERED 10/325MG NORCO PRN Q6H.
[2017-03-31] MEDS: HYDROCODONE/APAP 10/325MG 1 EA TABLET PO PRN ×2 (16:31→22:07)
[2017-03-31] MEDS: LEVOTHYROXINE SODIUM 50 MCG TABLET GT SCH (16:34)
[2017-03-31 20:00] VITALS: BP 154/86
--- NOTE | 2017-03-31 20:35 | NUR ---
TELE 1 RN INITIAL NOTE PT IN BED AWAKE. NON VERBAL. ON T PIECE COOL AEROSOL 40% 02 10L. NO DISTRESS OR DISCOMFORT NOTED. NO S/S OF PAIN NOTED. ON TELE SR WITH PAC 87. ON GTF NOVASOURCE AT 30 ML/HR, 0 ML RESIDUAL NOTED. MICHELLE WITH MIDLINE INTACT AND PATENT. REPOSITION HIM Q2H, KEPT HIM DRY AND CLEAN. ALL NEEDS ATTENDED. SIDE RAILS UP X 3 AND CALL LIGHT WITHIN REACH.
[2017-03-31] MEDS: SENNOSIDES 8.6 MG TABLET GT SCH (22:06)
[2017-03-31] MEDS: ATORVASTATIN 40 MG TABLET GT SCH (22:06)
[2017-03-31] MEDS: LACTULOSE 10 G/15 ML UDC (PYXIS) GT SCH (22:08)
[2017-03-31] MEDS: INSULIN DETEMIR 100 UNIT/ML CARTRIDGE SQ SCH (22:28)
[2017-04-01] VITALS: BP 160/74
[2017-04-01] MEDS: CLONIDINE HCL 0.1 MG TABLET GT PRN ×3 (00:37→05:35)
[2017-04-01 04:42] VITALS: BP 160/74
[2017-04-01] MEDS: RENAL NOVASOURCE 1,000 ML BOTTLE GT PRN (05:25)
[2017-04-01] MEDS: BLOOD SUGAR DIAGNOSTIC 1 EACH STRIP IN SCH ×4 (05:26→23:26)
[2017-04-01] MEDS: HYDROCODONE/APAP 10/325MG 1 EA TABLET PO PRN (05:35)
[2017-04-01] MEDS: SEVELAMER CARBONATE 0.8 GM POWD.PACK GT SCH ×3 (06:42→21:51)
[2017-04-01 07:12] LABS: BASOPHILS % (AUTO) 0.3 % (0.0-2.0); HEMATOCRIT 28 % (39-51); HEMOGLOBIN 9.2 g/dL (13.5-17.5); LYMPHOCYTES # (AUTO) 1.7 /CMM (0.8-4.8); LYMPHOCYTES % (AUTO) 14.7 % (20.0-44.0); MEAN CORPUSCULAR HEMOGLOBIN 30 PG (26.0-33.0); MEAN CORPUSCULAR HGB CONC 33 g/dl (31.0-36.0); MEAN CORPUSCULAR VOLUME 90 fL (80-96); MONOCYTES % (AUTO) 8.3 % (2.0-12.0); NEUTROPHILS % (AUTO) 76.7 % (43.0-81.0); PLATELET COUNT (AUTO) 318 /CMM (150-450); RDW COEFFICIENT OF VARIATION 15.5 (11.5-15.0); RED BLOOD CELL COUNT(AUTO) 3.11 MIL/uL (4.5-6.0); WHITE BLOOD COUNT (AUTO) 11.8 K/uL (4.3-11.0)
--- NOTE | 2017-04-01 07:15 | NUR ---
TELE 1 RN CLOSING NOTE PT IN BED AWAKE. NON VERBAL. ON T PIECE COOL AEROSOL 40% 02 10L. NO DISTRESS OR DISCOMFORT NOTED. NO S/S OF PAIN NOTED. ON TELE SR WITH PAC 87. ON GTF NOVASOURCE AT 30 ML/HR, 0 ML RESIDUAL NOTED. MICHELLE WITH MIDLINE INTACT AND PATENT. REPOSITION HIM Q2H, KEPT HIM DRY AND CLEAN. ALL NEEDS ATTENDED. SIDE RAILS UP X 3 AND CALL LIGHT WITHIN REACH. HD NOW
[2017-04-01 07:30] LABS: CALCIUM, SERUM 7.6 mg/dL (8.5-10.1); CARBON DIOXIDE 29 mmol/L (21-32); CHLORIDE 95 mmol/L (98-107); CREATININE 3.9 mg/dL (0.6-1.3); GLUCOSE 122 mg/dL (74-106); MAGNESIUM 2.5 mg/dL (1.8-2.4); PHOSPHORUS 4.6 mg/dL (2.5-4.9); POTASSIUM 3.9 mmol/L (3.5-5.1); SODIUM SERUM 134 mmol/L (136-145); UREA NITROGEN, BLOOD 71 mg/dL (7-18)
--- NOTE | 2017-04-01 07:35 | NUR ---
RN NOTE:(INITIAL) PATIENT RECEIVED IN STABLE CONDITION ALERT AWAKE ORIENTED X1. ON T-PIECE OXYGEN THERAPY FIO2 40%, BREATHING PATTERN REGULAR & UNLABORED. NO ACUTE DISTRESS NOTED. NO S/S OF PAIN & DISCOMFORT NOTED. IV SITE INTACT, ABLE TO FLUSH WITHOUT DIFFICULTY. G-TUBE SITE INTACT, RUNNING WITH TUBE FEEDING ORDERED, TOLERATING WELL. NO RESIDUAL NOTED. ON ASPIRATION PRECAUTION. SAFETY MEASURES OBSERVED. WILL CONTINUE TO MONITOR CLOSELY.
[2017-04-01 08:00] VITALS: BP 143/66
[2017-04-01] MEDS: PANTOPRAZOLE 40 MG/PACK PACK GT SCH (09:30)
[2017-04-01] MEDS: VIT B CMPLX 3/FA/VIT C/BIOTIN 1 TAB TABLET GT SCH (09:30)
[2017-04-01] MEDS: LEVETIRACETAM SOL (5 ML) 100 MG/ML UDC GT SCH ×2 (09:30→21:50)
[2017-04-01] MEDS: AMLODIPINE BESYLATE 5 MG TABLET GT SCH ×2 (09:31→21:51)
[2017-04-01] MEDS: predniSONE 20 MG TABLET PO SCH (09:31)
[2017-04-01] MEDS: ASCORBIC ACID 500 MG TABLET GT SCH (09:32)
[2017-04-01] MEDS: hydrALAZINE HCL 25 MG TABLET GT SCH ×3 (09:32→17:10)
[2017-04-01] MEDS: LACTOBACILLUS RHAMNOSUS GG 1 EACH CAP.SPRINK GT SCH ×2 (09:32→17:09)
[2017-04-01] MEDS: LINAGLIPTIN 5 MG TABLET GT SCH (09:32)
[2017-04-01] MEDS: MINOXIDIL (2.5MG) 2.5 MG TABLET PO SCH (09:33)
[2017-04-01] MEDS: PROSOURCE / PROSTAT (PYXIS) 30 ML UDC GT SCH ×2 (09:35→17:09)
--- NOTE | 2017-04-01 11:53 | NUR ---
RN NOTES: HEMODIALYSIS DONE TODAY, 2L OUTPUT. S/P DIALYSIS NO S/S OF DISTRESS NOTED. CONTINUE TO MONITOR.
[2017-04-01 12:00] VITALS: BP 131/64
[2017-04-01] MEDS: INSULIN REGULAR, HUMAN 100 UNIT/ML 3 ML VIAL SQ PRN ×3 (12:33→23:26)
[2017-04-01 16:00] VITALS: BP 128/77
[2017-04-01] MEDS: LEVOTHYROXINE SODIUM 50 MCG TABLET GT SCH (17:10)
--- NOTE | 2017-04-01 18:40 | NUR ---
RN NOTE: PATIENT REMAIN STABLE DURING SHIFT. NO SIGNIFICANT CHANGES NOTED. CONTINUE WITH ASPIRATION PRECAUTION. SAFETY MEASURES OBSERVED. WILL ENDORSE TO PM SHIFT RN FOR CONTINUITY OF CARE.
[2017-04-01 20:00] VITALS: BP 145/67
--- NOTE | 2017-04-01 21:11 | NUR ---
received pt from day shift, alert, follows simple commands at times, SR, PACs, on the vent, lungs congested, no edema, GT to feeding tolerates well, anuric HD pt, v/s stable, no pain, pt turned and repositioned.
[2017-04-01] MEDS: LACTULOSE 10 G/15 ML UDC (PYXIS) GT SCH (21:50)
[2017-04-01] MEDS: ATORVASTATIN 40 MG TABLET GT SCH (21:50)
[2017-04-01] MEDS: SENNOSIDES 8.6 MG TABLET GT SCH (21:50)
[2017-04-01] MEDS: INSULIN DETEMIR 100 UNIT/ML CARTRIDGE SQ SCH (22:45)
[2017-04-02] VITALS: BP 147/89
[2017-04-02 04:00] VITALS: BP 154/76
--- NOTE | 2017-04-02 04:23 | NUR ---
pt is resting in the bed, no acute distress overnight, v/s stable, no pain, pt turned and repositioned q2hrs.
[2017-04-02] MEDS: SEVELAMER CARBONATE 0.8 GM POWD.PACK GT SCH ×3 (05:12→21:34)
[2017-04-02] MEDS: INSULIN REGULAR, HUMAN 100 UNIT/ML 3 ML VIAL SQ PRN ×4 (05:12→22:22)
[2017-04-02] MEDS: BLOOD SUGAR DIAGNOSTIC 1 EACH STRIP IN SCH ×4 (05:13→22:17)
--- NOTE | 2017-04-02 07:10 | NUR ---
RN INITIAL NOTES RECEIVED PT ASLEEP, EASILY AROUSABLE. TRACH IN PLACE. ON FI02 AY 40% VIA T-PIECE. NO SOB NOTED. HOB ELEVATED. NO SIGNS OF PAIN NOTED. MICHELLE MIDLINE IN PLACE. RIGHT SUBCLAVIAN HD CATH IN PLACE. GT IN PLACE. TOLERATING NOVASOURCE AT 40ML/HR. NO RESIDUAL NOTED. BLE ELEVATED. PT COMFORTABLE. WILL MONITOR.
[2017-04-02 07:28] LABS: BASOPHILS % (AUTO) 0.2 % (0.0-2.0); HEMATOCRIT 31 % (39-51); LYMPHOCYTES # (AUTO) 1.6 /CMM (0.8-4.8); LYMPHOCYTES % (AUTO) 9.8 % (20.0-44.0); MEAN CORPUSCULAR HEMOGLOBIN 30 PG (26.0-33.0); MEAN CORPUSCULAR HGB CONC 33 g/dl (31.0-36.0); MEAN CORPUSCULAR VOLUME 91 fL (80-96); MONOCYTES # (AUTO) 1.1 /CMM (0.1-1.30); MONOCYTES % (AUTO) 6.9 % (2.0-12.0); NEUTROPHILS # (AUTO) 13.6 /CMM (1.8-8.9); NEUTROPHILS % (AUTO) 83.1 % (43.0-81.0); PLATELET COUNT (AUTO) 348 /CMM (150-450); RDW COEFFICIENT OF VARIATION 15.8 (11.5-15.0); RED BLOOD CELL COUNT(AUTO) 3.38 MIL/uL (4.5-6.0); WHITE BLOOD COUNT (AUTO) 16.4 K/uL (4.3-11.0)
[2017-04-02 07:50] LABS: CALCIUM, SERUM 8.1 mg/dL (8.5-10.1); CARBON DIOXIDE 28 mmol/L (21-32); CHLORIDE 101 mmol/L (98-107); CREATININE 3.6 mg/dL (0.6-1.3); GLUCOSE 171 mg/dL (74-106); MAGNESIUM 2.5 mg/dL (1.8-2.4); PHOSPHORUS 3.4 mg/dL (2.5-4.9); POTASSIUM 4.6 mmol/L (3.5-5.1); SODIUM SERUM 139 mmol/L (136-145); UREA NITROGEN, BLOOD 75 mg/dL (7-18)
[2017-04-02 08:00] VITALS: BP 148/76
[2017-04-02] MEDS: ASCORBIC ACID 500 MG TABLET GT SCH (08:24)
[2017-04-02] MEDS: LEVETIRACETAM SOL (5 ML) 100 MG/ML UDC GT SCH ×2 (08:24→21:34)
[2017-04-02] MEDS: PROSOURCE / PROSTAT (PYXIS) 30 ML UDC GT SCH ×2 (08:24→16:54)
[2017-04-02] MEDS: PANTOPRAZOLE 40 MG/PACK PACK GT SCH (08:24)
[2017-04-02] MEDS: predniSONE 20 MG TABLET PO SCH (08:24)
[2017-04-02] MEDS: AMLODIPINE BESYLATE 5 MG TABLET GT SCH ×2 (08:25→21:34)
[2017-04-02] MEDS: MINOXIDIL (2.5MG) 2.5 MG TABLET PO SCH (08:25)
[2017-04-02] MEDS: VIT B CMPLX 3/FA/VIT C/BIOTIN 1 TAB TABLET GT SCH (08:25)
[2017-04-02] MEDS: LACTOBACILLUS RHAMNOSUS GG 1 EACH CAP.SPRINK GT SCH (08:25)
[2017-04-02] MEDS: hydrALAZINE HCL 25 MG TABLET GT SCH ×3 (08:25→16:55)
[2017-04-02] MEDS: LINAGLIPTIN 5 MG TABLET GT SCH (08:26)
--- NOTE | 2017-04-02 09:00 | NUR ---
RN NOTES DIALYSIS STARTED. NO RESPIRATORY DISTRESS NOTED. NO SOB NOTED. NO SIGNS OF PAIN NOTED. WILL MONITOR.
--- NOTE | 2017-04-02 11:45 | NUR ---
RN NOTES DIALYSIS DONE. REMOVED 1L. PT TOLERATED WELL. WILL MONITOR.
[2017-04-02 12:00] VITALS: BP 153/76
--- NOTE | 2017-04-02 13:00 | NUR ---
RN NOTES SEEN AND EXAMINED BY DR. ANU BAZZI. AWARE OF CURRENT LAB VALUES. HD DONE, 1L REMOVED. NO NEW ORDER.
--- NOTE | 2017-04-02 13:30 | NUR ---
RN NOTES SEEN AND EXAMINED BY PARKRE BARRIGA DNP. AWARE OF CURRENT LAB VALUES: WBC 16.4, AFEBRILE. HGB 10, HCT 31, BUN 75, CREA 3.6. DIALYSIS DONE, REMOVED 1L. ORDERED LABS IN AM. NOTED AND CARRIED OUT.
[2017-04-02 16:00] VITALS: BP 140/74
[2017-04-02] MEDS: LEVOTHYROXINE SODIUM 50 MCG TABLET GT SCH (16:54)
[2017-04-02] MEDS: RENAL NOVASOURCE 1,000 ML BOTTLE GT PRN (17:00)
--- NOTE | 2017-04-02 18:37 | NUR ---
RN CLOSING NOTES PT REMAINS STABLE. NO JOSE NOTED. NO RESPIRATORY DISTRESS NOTED. NO SIGNS OF PAIN NOTED. SUCTIONED PRN. KEPT HOB ELEVATED. MIDLINE IN PLACE. GT PATENT AND INTACT. TOLERATING GTF WELL. NO RESIDUAL NOTED. KEPT PT CLEAN AND DRY. REPOSITIONED Q2. KEPT COMFORTABLE. WILL ENDORSE FOR CONTINUITY OF CARE.
--- NOTE | 2017-04-02 19:45 | NUR ---
CLERK NOTES RECEIVED ON BED,ALERT.OPEN EYES BUT NO VERBAL RESPONSE.ON T-PIECE AT 6L,40%FIO2 TOLERATED WELL.WITH RIGHT UPPER ARM MIDLINE FOR MEDS,RIGHT HAND SALINE LOCK INTACT AND PATENT.WITH RIGHT SUBCLAVIAN CATHETER FOR HD ACCESS.ON ISOFLEX BED FOR SKIN MANAGEMENT.REPOSITION Q 2 HOURS PER PROTOCOL.WITH GT FEEDING OF NOVASOURCE AT 40ML/HR RATE,TOLERATED WELL.NO RESIDUAL NOTED.WILL CONTINUE TO MONITOR STATUS.
[2017-04-02 20:00] VITALS: BP 166/84
--- NOTE | 2017-04-02 22:00 | NUR ---
ELEVATOR PILOT NOTES ACCU-CHECK BLOOD SUGAR CHECK 199,COVERED WITH HUMULIN R 3 UNITS PER SLIDING SCALE,ALONG WITH LEVEMIR 13 UNITS SQ SCHEDULED.
[2017-04-02] MEDS: ATORVASTATIN 40 MG TABLET GT SCH (22:02)
[2017-04-02] MEDS: SENNOSIDES 8.6 MG TABLET GT SCH (22:02)
[2017-04-02] MEDS: LACTULOSE 10 G/15 ML UDC (PYXIS) GT SCH (22:02)
[2017-04-02] MEDS: INSULIN DETEMIR 100 UNIT/ML CARTRIDGE SQ SCH (22:19)
[2017-04-03] VITALS (7 sets, daily range): BP systolic 100–185; BP diastolic 60–97
[2017-04-03] MEDS: CLONIDINE HCL 0.1 MG TABLET GT PRN (01:17)
--- NOTE | 2017-04-03 01:17 | NUR ---
FIELD OPERATIONS MANAGER NOTES BLOOD PRESSURE 185/97,MEDICATED WITH CLONIDINE 0.1MG/GT FOR SBP ABOVE 160.
[2017-04-03] MEDS: SEVELAMER CARBONATE 0.8 GM POWD.PACK GT SCH ×3 (05:18→21:58)
[2017-04-03] MEDS: BLOOD SUGAR DIAGNOSTIC 1 EACH STRIP IN SCH ×3 (05:19→17:15)
--- NOTE | 2017-04-03 05:20 | NUR ---
NUCLEAR MEDICINE PHYSICIAN NOTES ACCU-CHECK BLOOD SUGAR CHECK 114,NO INSULIN COVERAGE.
--- NOTE | 2017-04-03 06:32 | NUR ---
RESPITE WORKER NOTES SR-67 ON THE MONITOR.T-PIECE TOLERATED WELL.A/O X1,NON VERBAL.GT FEEDING IN PROGRESS,NO RESIDUAL NOTED.HOB ELEVATED FOR ASPIRATION PRECAUTION,REPOSITION PER PROTOCOL,CALL LIGHT IN REACH,NEEDS ATTENDED.WILL ENDORSE TO DAY-NURSE FOR JOSE.
--- NOTE | 2017-04-03 06:44 | NUR ---
BUILDING TRADES INSTRUCTOR NOTES LATEST BP 152/65
[2017-04-03 07:10] LABS: BASOPHILS % (AUTO) 0.2 % (0.0-2.0); HEMATOCRIT 28 % (39-51); HEMOGLOBIN 9.2 g/dL (13.5-17.5); LYMPHOCYTES # (AUTO) 1.6 /CMM (0.8-4.8); LYMPHOCYTES % (AUTO) 12.5 % (20.0-44.0); MEAN CORPUSCULAR HEMOGLOBIN 29 PG (26.0-33.0); MEAN CORPUSCULAR HGB CONC 32 g/dl (31.0-36.0); MEAN CORPUSCULAR VOLUME 90 fL (80-96); MONOCYTES # (AUTO) 0.9 /CMM (0.1-1.30); MONOCYTES % (AUTO) 6.9 % (2.0-12.0); NEUTROPHILS # (AUTO) 10.3 /CMM (1.8-8.9); NEUTROPHILS % (AUTO) 80.4 % (43.0-81.0); PLATELET COUNT (AUTO) 313 /CMM (150-450); RDW COEFFICIENT OF VARIATION 15.6 (11.5-15.0); RED BLOOD CELL COUNT(AUTO) 3.15 MIL/uL (4.5-6.0); WHITE BLOOD COUNT (AUTO) 12.9 K/uL (4.3-11.0)
[2017-04-03 07:19] LABS: CALCIUM, SERUM 7.6 mg/dL (8.5-10.1); CARBON DIOXIDE 30 mmol/L (21-32); CHLORIDE 98 mmol/L (98-107); CREATININE 3.4 mg/dL (0.6-1.3); GLUCOSE 125 mg/dL (74-106); MAGNESIUM 2.4 mg/dL (1.8-2.4); PHOSPHORUS 3.3 mg/dL (2.5-4.9); POTASSIUM 4.7 mmol/L (3.5-5.1); SODIUM SERUM 135 mmol/L (136-145); UREA NITROGEN, BLOOD 72 mg/dL (7-18)
--- NOTE | 2017-04-03 07:30 | NUR ---
MEDICATION SPECIALIST AM NOTES RECEIVED IN BED,ALERT.OPEN EYES, NON VERBAL, ON T-PIECE AT 6L,40%FIO2 TOLERATED WELL.NOT IN ANY DISTRESS, RESPIRATION UNLABORED, TELEMETRY READS SR HR 80, NO SIGNS OF DISCOMFORT, WITH RIGHT UPPER ARM MIDLINE FOR MEDS,RIGHT HAND SALINE LOCK INTACT AND PATENT.WITH RIGHT SUBCLAVIAN CATHETER FOR HD ACCESS. ALL FLUSHES WELL, AND ALL SITES CLEAR, ON ISOFLEX BED FOR SKIN MANAGEMENT.REPOSITION Q 2 HOURS PER PROTOCOL.WITH GT FEEDING OF NOVASOURCE AT 40ML/HR RATE,TOLERATED WELL.NO RESIDUAL NOTED.WILL CONTINUE TO MONITOR STATUS.
--- NOTE | 2017-04-03 09:30 | NUR ---
RN NOTES ADMINISTERED DUE MEDS.
[2017-04-03] MEDS: ASCORBIC ACID 500 MG TABLET GT SCH (09:44)
[2017-04-03] MEDS: VIT B CMPLX 3/FA/VIT C/BIOTIN 1 TAB TABLET GT SCH (09:44)
[2017-04-03] MEDS: LEVETIRACETAM SOL (5 ML) 100 MG/ML UDC GT SCH ×2 (09:44→21:58)
[2017-04-03] MEDS: PANTOPRAZOLE 40 MG/PACK PACK GT SCH (09:45)
[2017-04-03] MEDS: predniSONE 20 MG TABLET PO SCH (09:45)
[2017-04-03] MEDS: LINAGLIPTIN 5 MG TABLET GT SCH (09:45)
[2017-04-03] MEDS: MINOXIDIL (2.5MG) 2.5 MG TABLET PO SCH (09:46)
[2017-04-03] MEDS: hydrALAZINE HCL 25 MG TABLET GT SCH ×3 (09:46→17:00)
[2017-04-03] MEDS: AMLODIPINE BESYLATE 5 MG TABLET GT SCH ×2 (09:46→21:59)
[2017-04-03] MEDS: PROSOURCE / PROSTAT (PYXIS) 30 ML UDC GT SCH ×2 (09:49→17:14)
[2017-04-03] MEDS: INSULIN REGULAR, HUMAN 100 UNIT/ML 3 ML VIAL SQ PRN ×3 (12:51→23:40)
--- NOTE | 2017-04-03 12:51 | NUR ---
RN NOTES ACCUCHECK DONE. BS 213 MG/DL. ADMINISTERED 4 UNITS HUM R PER SS.
[2017-04-03] MEDS: RENAL NOVASOURCE 1,000 ML BOTTLE GT PRN (15:10)
[2017-04-03] MEDS: LEVOTHYROXINE SODIUM 50 MCG TABLET GT SCH (15:41)
--- NOTE | 2017-04-03 17:24 | NUR ---
RN NOTES ACCUCHECK DONE. BS 193 MG/DL. ADMINISTERED 3 UNITS HUM R PER SS.
--- NOTE | 2017-04-03 18:53 | NUR ---
SCREEN PRINTING SUPERVISOR NOTES PT IN BED,RESTING, ALERT.OPEN EYES, NON VERBAL, ON T-PIECE AT 6L,40%FIO2 TOLERATED WELL.NOT IN ANY DISTRESS, RESPIRATION UNLABORED, TELEMETRY READS SR HR 90, NO SIGNS OF DISCOMFORT, WITH RIGHT UPPER ARM MIDLINE FOR MEDS,RIGHT HAND SALINE LOCK INTACT AND PATENT.WITH RIGHT SUBCLAVIAN CATHETER FOR HD ACCESS. ALL FLUSHES WELL, AND ALL SITES CLEAR, ON ISOFLEX BED FOR SKIN MANAGEMENT.REPOSITION Q 2 HOURS PER PROTOCOL.WITH GT FEEDING OF NOVASOURCE AT 40ML/HR RATE,TOLERATED WELL.NO RESIDUAL NOTED.ALL NEEDS MET. TURNED AND REPOSITION Q2H. PM CARE DONE. WILL ENDORSE TO NEXT SHIFT FOR JOSE.
--- NOTE | 2017-04-03 20:00 | NUR ---
TELE 1 RN NOTE RECEIVED PT IN BED AWAKE. A/O X 1, RESPONDS TO TACTILE STIMULATION. ON T PIECE PORT[place] # 8 COOL AEROSOL 40% 02 10 L O2 SAT 100%. NO SOB, NO DISTRESS OR DISCOMFORT NOTED. NO S/S OF PAIN NOTED. ON TELE SR HR 84. GTF NOVASOURCE INFUSING AT 40 ML/HR, 0 ML RESIDUAL NOTED. REPOSITION HIM Q2H, KEPT HIM DRY AND CLEAN. ALL NEEDS ATTENDED. SIDE RAILS UP X 2 AND CALL LIGHT WITHIN REACH. VSS. CONTINUE TO MONITOR HIM.
[2017-04-03] MEDS: LACTULOSE 10 G/15 ML UDC (PYXIS) GT SCH (21:57)
[2017-04-03] MEDS: SENNOSIDES 8.6 MG TABLET GT SCH (21:58)
[2017-04-03] MEDS: ATORVASTATIN 40 MG TABLET GT SCH (21:58)
[2017-04-03] MEDS: INSULIN DETEMIR 100 UNIT/ML CARTRIDGE SQ SCH (23:39)
[2017-04-04] VITALS: BP 133/68
[2017-04-04] MEDS: BLOOD SUGAR DIAGNOSTIC 1 EACH STRIP IN SCH ×4 (00:09→17:07)
[2017-04-04 04:00] VITALS: BP 158/75
[2017-04-04] MEDS: SEVELAMER CARBONATE 0.8 GM POWD.PACK GT SCH ×3 (05:49→20:20)
--- NOTE | 2017-04-04 06:27 | NUR ---
TELE 1 RN NOTE PT IN BED ASLEEP, AROUSABLE, NO DISTRESS OR DISCOMFORT NOTED. ON TELE SR HR 89, NO CHANGE IN CONDITION DURING THE SHIFT. GTF INFUSING WELL, 0 ML RESIDUAL NOTED. REPOSITION HIM Q2H. KEPT HIM DRY AND CLEAN. FREQUENTLY SUCTIONED THE PT DURING THE SHIFT. ALL NEEDS ATTENDED. SIDE RAILS UP X 3 AND CALL LIGHT WITHIN REACH. WILL ENDORSE TO DAY SHIFT NURSE FOR CONTINUE TO CARE.
--- NOTE | 2017-04-04 07:30 | NUR ---
KING MAKER AM NOTES RECEIVED IN BED,ALERT.OPEN EYES, NON VERBAL, ON T-PIECE AT 6L,40%FIO2 TOLERATED WELL.NOT IN ANY DISTRESS, RESPIRATION UNLABORED, TELEMETRY READS SR HR 80, NO SIGNS OF DISCOMFORT, WITH RIGHT UPPER ARM MIDLINE FOR MEDS,RIGHT HAND SALINE LOCK INTACT AND PATENT.WITH RIGHT SUBCLAVIAN CATHETER FOR HD ACCESS. ALL SITES CLEAR, ON ISOFLEX BED FOR SKIN MANAGEMENT.REPOSITION Q 2 HOURS PER PROTOCOL.WITH GT FEEDING OF NOVASOURCE AT 40ML/HR RATE,TOLERATED WELL.NO RESIDUAL NOTED. ONGOING HD. WILL CONTINUE TO MONITOR STATUS.
[2017-04-04 07:35] LABS: HEMATOCRIT 26 % (39-51); HEMOGLOBIN 8.5 g/dL (13.5-17.5); LYMPHOCYTES # (AUTO) 1.6 /CMM (0.8-4.8); LYMPHOCYTES % (AUTO) 12.7 % (20.0-44.0); MEAN CORPUSCULAR HEMOGLOBIN 29 PG (26.0-33.0); MEAN CORPUSCULAR HGB CONC 33 g/dl (31.0-36.0); MEAN CORPUSCULAR VOLUME 89 fL (80-96); MONOCYTES # (AUTO) 0.9 /CMM (0.1-1.30); MONOCYTES % (AUTO) 7.1 % (2.0-12.0); NEUTROPHILS # (AUTO) 10.3 /CMM (1.8-8.9); NEUTROPHILS % (AUTO) 80.2 % (43.0-81.0); PLATELET COUNT (AUTO) 306 /CMM (150-450); RDW COEFFICIENT OF VARIATION 15.8 (11.5-15.0); RED BLOOD CELL COUNT(AUTO) 2.94 MIL/uL (4.5-6.0); WHITE BLOOD COUNT (AUTO) 12.9 K/uL (4.3-11.0)
[2017-04-04 08:00] VITALS: BP 168/79
[2017-04-04 08:04] LABS: CALCIUM, SERUM 7.6 mg/dL (8.5-10.1); CARBON DIOXIDE 30 mmol/L (21-32); CHLORIDE 97 mmol/L (98-107); CREATININE 4.1 mg/dL (0.6-1.3); GLUCOSE 113 mg/dL (74-106); MAGNESIUM 2.7 mg/dL (1.8-2.4); PHOSPHORUS 3.6 mg/dL (2.5-4.9); POTASSIUM 4.2 mmol/L (3.5-5.1); SODIUM SERUM 135 mmol/L (136-145)
[2017-04-04 08:30] LABS: UREA NITROGEN, BLOOD 104 mg/dL (7-18)
[2017-04-04] MEDS: LEVETIRACETAM SOL (5 ML) 100 MG/ML UDC GT SCH ×2 (08:47→20:19)
[2017-04-04] MEDS: VIT B CMPLX 3/FA/VIT C/BIOTIN 1 TAB TABLET GT SCH (08:48)
[2017-04-04] MEDS: predniSONE 20 MG TABLET PO SCH (08:48)
[2017-04-04] MEDS: PANTOPRAZOLE 40 MG/PACK PACK GT SCH (08:48)
[2017-04-04] MEDS: LINAGLIPTIN 5 MG TABLET GT SCH (08:48)
[2017-04-04] MEDS: ASCORBIC ACID 500 MG TABLET GT SCH (08:48)
[2017-04-04] MEDS: AMLODIPINE BESYLATE 5 MG TABLET GT SCH ×2 (08:49→20:20)
[2017-04-04] MEDS: hydrALAZINE HCL 25 MG TABLET GT SCH ×3 (08:49→17:04)
[2017-04-04] MEDS: MINOXIDIL (2.5MG) 2.5 MG TABLET PO SCH (08:49)
[2017-04-04] MEDS: PROSOURCE / PROSTAT (PYXIS) 30 ML UDC GT SCH ×2 (08:57→17:04)
--- NOTE | 2017-04-04 09:30 | NUR ---
RN NOTES ADMINISTERED DUE MEDS. HD COMPLETED AT 0900 WITH 2 LITERS OUTPUT.
[2017-04-04 12:00] VITALS: BP 149/67
--- NOTE | 2017-04-04 12:27 | NUR ---
RN NOTES ACCUCHECK DONE. BS 186 MG/DL. ADMINISTERED 3 UNITS HUM R PER SS.
[2017-04-04] MEDS: INSULIN REGULAR, HUMAN 100 UNIT/ML 3 ML VIAL SQ PRN ×2 (12:29→17:22)
[2017-04-04 16:00] VITALS: BP 134/66
[2017-04-04] MEDS: LEVOTHYROXINE SODIUM 50 MCG TABLET GT SCH (16:42)
[2017-04-04] MEDS: RENAL NOVASOURCE 1,000 ML BOTTLE GT PRN (17:10)
--- NOTE | 2017-04-04 17:19 | NUR ---
RN NOTES ACCUCHECK DONE. BS 218 MG/DL. ADMINISTERED 4 UNITS HUM R PER SS.
--- NOTE | 2017-04-04 18:30 | NUR ---
HEALTH SUPPORT SPECIALIST NOTES PT IN BED,RESTING, ALERT.OPEN EYES, NON VERBAL, ON T-PIECE AT 6L,40%FIO2 TOLERATED WELL.NOT IN ANY DISTRESS, RESPIRATION UNLABORED, TELEMETRY READS SR HR 90, NO SIGNS OF DISCOMFORT, WITH RIGHT UPPER ARM MIDLINE FOR MEDS,RIGHT HAND SALINE LOCK INTACT AND PATENT.WITH RIGHT SUBCLAVIAN CATHETER FOR HD ACCESS. ALL FLUSHES WELL, AND ALL SITES CLEAR, ON ISOFLEX BED FOR SKIN MANAGEMENT.REPOSITION Q 2 HOURS PER PROTOCOL.WITH GT FEEDING OF NOVASOURCE AT 40ML/HR RATE,TOLERATED WELL.10 ML RESIDUAL NOTED.ALL NEEDS MET. TURNED AND REPOSITION Q2H. PM CARE DONE. WILL ENDORSE TO NEXT SHIFT FOR JOSE.
[2017-04-04 20:00] VITALS: BP 150/72
[2017-04-04] MEDS: LACTULOSE 10 G/15 ML UDC (PYXIS) GT SCH (22:10)
[2017-04-04] MEDS: SENNOSIDES 8.6 MG TABLET GT SCH (22:10)
[2017-04-04] MEDS: ATORVASTATIN 40 MG TABLET GT SCH (22:10)
[2017-04-04] MEDS: INSULIN DETEMIR 100 UNIT/ML CARTRIDGE SQ SCH (22:25)
[2017-04-05] VITALS: BP 152/73
[2017-04-05] MEDS: INSULIN REGULAR, HUMAN 100 UNIT/ML 3 ML VIAL SQ PRN ×4 (00:51→17:03)
[2017-04-05] MEDS: BLOOD SUGAR DIAGNOSTIC 1 EACH STRIP IN SCH ×4 (00:52→17:04)
[2017-04-05 04:00] VITALS: BP 128/69
[2017-04-05] MEDS: SEVELAMER CARBONATE 0.8 GM POWD.PACK GT SCH ×3 (06:32→20:30)
[2017-04-05 07:12] LABS: BASOPHILS % (AUTO) 0.1 % (0.0-2.0); EOSINOPHILS # (AUTO) 0.2 /CMM (0.0-0.7); EOSINOPHILS % (AUTO) 1.7 % (0.0-6.0); HEMATOCRIT 28 % (39-51); HEMOGLOBIN 8.9 g/dL (13.5-17.5); LYMPHOCYTES # (AUTO) 1.5 /CMM (0.8-4.8); LYMPHOCYTES % (AUTO) 14.2 % (20.0-44.0); MEAN CORPUSCULAR HEMOGLOBIN 29 PG (26.0-33.0); MEAN CORPUSCULAR HGB CONC 32 g/dl (31.0-36.0); MEAN CORPUSCULAR VOLUME 90 fL (80-96); MONOCYTES % (AUTO) 9.4 % (2.0-12.0); NEUTROPHILS # (AUTO) 7.7 /CMM (1.8-8.9); NEUTROPHILS % (AUTO) 74.6 % (43.0-81.0); PLATELET COUNT (AUTO) 303 /CMM (150-450); RED BLOOD CELL COUNT(AUTO) 3.09 MIL/uL (4.5-6.0); WHITE BLOOD COUNT (AUTO) 10.3 K/uL (4.3-11.0)
[2017-04-05 07:39] LABS: CALCIUM, SERUM 7.8 mg/dL (8.5-10.1); CARBON DIOXIDE 26 mmol/L (21-32); CHLORIDE 99 mmol/L (98-107); GLUCOSE 128 mg/dL (74-106); MAGNESIUM 2.6 mg/dL (1.8-2.4); PHOSPHORUS 3.3 mg/dL (2.5-4.9); POTASSIUM 4.6 mmol/L (3.5-5.1); SODIUM SERUM 138 mmol/L (136-145)
[2017-04-05 07:40] LABS: UREA NITROGEN, BLOOD 101 mg/dL (7-18)
[2017-04-05 08:00] VITALS: BP 144/71
--- NOTE | 2017-04-05 08:00 | NUR ---
RN INITIAL NOTES RECEIVED PT ON BED ALERT ORIENTED X 1. ON COOLER AEROSOL WITH FIO2 40% 10 L SAT 98% , ON TELE MONIOT SR . WITH GTUBE FEEDING ORDERED TOLERATING WELL, NO RESIDUAL NOTED , KEEP HOB ELEVATED AT ALL TIME , RT UPPER ARM MID LINE AND RT HAND HL INTACT, NO S\S INFECTION NOTED , BED IN LOWEST AND LOCKED POSITION , CALL LIGHT WITHIN REACH , WILL CONT TO MONITOR CLOSELY
[2017-04-05] MEDS: LEVETIRACETAM SOL (5 ML) 100 MG/ML UDC GT SCH ×2 (08:55→20:30)
[2017-04-05] MEDS: PANTOPRAZOLE 40 MG/PACK PACK GT SCH (08:55)
[2017-04-05] MEDS: hydrALAZINE HCL 25 MG TABLET GT SCH ×3 (08:56→16:49)
[2017-04-05] MEDS: MINOXIDIL (2.5MG) 2.5 MG TABLET PO SCH (08:56)
[2017-04-05] MEDS: ASCORBIC ACID 500 MG TABLET GT SCH (08:57)
[2017-04-05] MEDS: PROSOURCE / PROSTAT (PYXIS) 30 ML UDC GT SCH ×2 (08:57→16:49)
[2017-04-05] MEDS: VIT B CMPLX 3/FA/VIT C/BIOTIN 1 TAB TABLET GT SCH (08:58)
[2017-04-05] MEDS: AMLODIPINE BESYLATE 5 MG TABLET GT SCH ×2 (08:58→20:30)
[2017-04-05] MEDS: LINAGLIPTIN 5 MG TABLET GT SCH (08:59)
[2017-04-05] MEDS: predniSONE 20 MG TABLET PO SCH (09:01)
--- NOTE | 2017-04-05 09:57 | NUR ---
RN NOTES PROSTAT CHANGE TO ONCE A DAY INSTEAD OF 2X A DAY PER DIETICIANS ORDER
[2017-04-05 12:00] VITALS: BP 144/58
--- NOTE | 2017-04-05 14:26 | NUR ---
INSEMINATOR NOTE HEMODIALYSIS STARTED 141
--- NOTE | 2017-04-05 15:31 | NUR ---
telecommunications line mechanic note called to snf , report given to evangelist baca
[2017-04-05 16:00] VITALS: BP 131/70
[2017-04-05] MEDS: LEVOTHYROXINE SODIUM 50 MCG TABLET GT SCH (16:49)
--- NOTE | 2017-04-05 17:00 | NUR ---
telemetry tech note hd completed, removed 1.5 l bp 136/70
--- NOTE | 2017-04-05 17:34 | NUR ---
SALES AND MARKETING EXECUTIVE NOTE AMBULANCE WILL ARRIVED TO LOCKSTITCH TUNNEL ELASTIC OPERATOR PATIENT AT 2100
--- NOTE | 2017-04-05 18:30 | NUR ---
RETAIL WIRELESS SALES REPRESENTATIVE NOTE THE PT. SON NOTIFIED FOR THE PATIENTS TRANSFER TO SNF, [facility]
--- NOTE | 2017-04-05 19:30 | NUR ---
MANAGER PEST INITIAL NOTE PT RECEIVED IN BED WITH HOB ELEVATED. A/O X1 WITH OPEN EYES. HAS T-PIECE WITH COOL AEROSOL WITH FIO2 40% AND WELL TOLERATED. TELE-SR. GTUBE FEEDING INFUSING AND NO RESIDUALS NOTED. GTUBE SITE CLEAN AND IN PLACE. IV MICHELLE MIDLINE, R HAND CLEAN, DRY , PATENT AND FLUSHING WELL. R SUBCLAVIAN PERMACATH IN PLACE. PREVIOUS SHIFT WITH ORDER TO D/C BACK TO FACILITY WITH PICKUP TIME AT 2100. REPORT GIVEN TO CHELSY BY PREVIOUS SHIFT. WILL CONTINUE TO MONITOR.
[2017-04-05 20:30] VITALS: BP 140/73
--- NOTE | 2017-04-05 21:20 | NUR ---
WATER TREATMENT PLANT SUPERVISOR NOTE PT PICKED UP BY AMBULANCE. SAFELY TRANSFERRED TO [facility]. NO ACUTE DISTRESS NOTED. VITAL SIGNS BP 140/73, R 18, P 59, T 98.0, O2SAT 95% T-PIECE FIO2 40%. REPORT GIVEN TO AMBULANCE. INFORMED OF MEDS GIVEN AND WELL TOLERATED VIA [employer]RI TechnologiesUBE. NO FACIAL GRIMACE NOTED. ALL BELONGINGS WITH PT.
== END 2017-04-05 21:10 | DRG 314 ==
LOC: ER 07:01 → TELE1 12:16 → TELE-TD 14:07 → TELE1 03-30 08:55
PROVIDERS: ADMIT Nurse Practitioner Acute Care; ATTEND Nurse Practitioner Acute Care
PROC: 05H533Z Insertion of Infusion Device into Right Subclavian Vein, Percutaneous Approach (ICD-10-PCS; 2017-03-28)
PROC: 30233N1 Transfusion of Nonautologous Red Blood Cells into Peripheral Vein, Percutaneous Approach (ICD-10-PCS; 2017-03-29)
PROC: B513YZA Fluoroscopy of Right Jugular Veins using Other Contrast, Guidance (ICD-10-PCS; 2017-03-30)
PROC: 5A1D70Z Performance of Urinary Filtration, Intermittent, Less than 6 Hours Per Day (ICD-10-PCS; 2017-03-30)
PROC: 05HM33Z Insertion of Infusion Device into Right Internal Jugular Vein, Percutaneous Approach (ICD-10-PCS; principal; 2017-03-30 06:30)
DX: T82.898A Other specified complication of vascular prosthetic devices, implants and grafts, initial encounter (principal); A41.9 Sepsis, unspecified organism; I13.11 Hypertensive heart and chronic kidney disease without heart failure, with stage 5 chronic kidney disease, or end stage renal disease; G93.40 Encephalopathy, unspecified; J96.10 Chronic respiratory failure, unspecified whether with hypoxia or hypercapnia; Z93.0 Tracheostomy status; E87.2 Acidosis; N18.6 End stage renal disease; I32 Pericarditis in diseases classified elsewhere; I31.9 Disease of pericardium, unspecified; I95.9 Hypotension, unspecified; R13.10 Dysphagia, unspecified; E11.22 Type 2 diabetes mellitus with diabetic chronic kidney disease; G20 Parkinson's disease; E88.09 Other disorders of plasma-protein metabolism, not elsewhere classified; D64.9 Anemia, unspecified; E03.9 Hypothyroidism, unspecified; K21.9 Gastro-esophageal reflux disease without esophagitis; Z88.0 Allergy status to penicillin; Z93.1 Gastrostomy status; Z99.2 Dependence on renal dialysis; E78.5 Hyperlipidemia, unspecified; E83.9 Disorder of mineral metabolism, unspecified; G40.909 Epilepsy, unspecified, not intractable, without status epilepticus; Y83.9 Surgical procedure, unspecified as the cause of abnormal reaction of the patient, or of later complication, without mention of misadventure at the time of the procedure; Y92.129 Unspecified place in nursing home as the place of occurrence of the external cause; R00.1 Bradycardia, unspecified; Z79.899 Other long term (current) drug therapy
CPT/HCPCS: 31720; 36415; 36569; 36600; 71010-TC; 74000-TC; 80048-TC; 80061-TC; 80076-TC; 80202-TC; 82803-TC; 82962-TC; 83605-TC; 83690-TC; 83735-TC; 84100-TC; 84484-TC; 85025-TC; 85610-TC; 85730-TC; 86850-TC; 86921-TC; 87040-TC; 87081-TC; 90935-TC; 93308-TC; 94640-TC; 94760-TC; 99082-TC; A4216; A4606; A6402; A6403; A7526; C1750; J0696; J0885; J1644; J1815; J1953; J2185; J2405; J2704; J2930; J3010; J3370; J3490; J7030; J7050; J7060; P9016-BL; Q0162; Q9967; Z7610

== ENCOUNTER 2017-05-03 12:34 | Inpatient (IN) | payer MEDICARE, OTHER ==
[~2017-05-03] VITALS: Ht 170.2 cm; Wt 78.0 kg
[~2017-05-03 12:34] MED LIST changes: -ACET160L15 GT; +ACET160L33 GT; -LEVE500S GT; +LEVE500S9 GT; -PROC25SU31 RC; -RXVAN XX; +SENN-167 GT; -SENN8.6T6 GT
[2017-05-03 12:55] LABS: BASOPHILS # (AUTO) 0.1 /CMM (0.0-0.2); BASOPHILS % (AUTO) 0.5 % (0.0-2.0); EOSINOPHILS # (AUTO) 0.3 /CMM (0.0-0.7); EOSINOPHILS % (AUTO) 2.6 % (0.0-6.0); HEMATOCRIT 27 % (39-51); HEMOGLOBIN 8.6 g/dL (13.5-17.5); LYMPHOCYTES # (AUTO) 1.4 /CMM (0.8-4.8); LYMPHOCYTES % (AUTO) 11.9 % (20.0-44.0); MEAN CORPUSCULAR HEMOGLOBIN 28 PG (26.0-33.0); MEAN CORPUSCULAR HGB CONC 32 g/dl (31.0-36.0); MEAN CORPUSCULAR VOLUME 87 fL (80-96); MONOCYTES # (AUTO) 1.3 /CMM (0.1-1.30); NEUTROPHILS # (AUTO) 8.6 /CMM (1.8-8.9); PLATELET COUNT (AUTO) 398 /CMM (150-450); RDW COEFFICIENT OF VARIATION 16.5 (11.5-15.0); WHITE BLOOD COUNT (AUTO) 11.7 K/uL (4.3-11.0)
[2017-05-03] MEDS ORDERED: IV NS 0.9% 1,000 ML BAG IV ONE ×2 (13:00→15:00)
[2017-05-03 13:05] VITALS: BP 99/52
[2017-05-03 13:14] LABS: CALCIUM, SERUM 12.1 mg/dL (8.5-10.1); CARBON DIOXIDE 24 mmol/L (21-32); CHLORIDE 98 mmol/L (98-107); CREATININE 2.8 mg/dL (0.6-1.3); GLUCOSE 243 mg/dL (74-106); POTASSIUM 3.5 mmol/L (3.5-5.1); SODIUM SERUM 134 mmol/L (136-145); UREA NITROGEN, BLOOD 33 mg/dL (7-18)
[2017-05-03 13:19] LABS: ALANINE AMINOTRANSFERASE 41 U/L (12-78); ALBUMIN 2.5 g/dL (3.4-5.0); ALKALINE PHOSPHATASE 118 U/L (46-116); ASPARTATE AMINOTRANSFERASE 30 U/L (15-37); BILIRUBIN,DIRECT 0.1 mg/dL (0.0-0.2); BILIRUBIN,TOTAL 0.4 mg/dL (0.2-1.0); TOTAL PROTEIN, SERUM 9.1 g/dL (6.4-8.2)
[2017-05-03 13:20] LABS: TROPONIN I < 0.017 ng/mL (0.00-0.056)
[2017-05-03 13:21] LABS: INR 0.95 (0.87-1.13)
[2017-05-03] MEDS ORDERED: NUTR100037 GT (13:26)
[2017-05-03] MEDS ORDERED: VANCOMYCIN 1 GM in IV D5W 250 ML IV SCH (13:30)
[2017-05-03] MEDS ORDERED: LEVOFLOXACIN 750 MG /D5W 150ML 750 MG in PREMIX 1 EA IV SCH (13:30)
[2017-05-03] MEDS ORDERED: LEVOFLOXACIN 750 MG /D5W 150ML 150 ML IV ONE (13:41)
[2017-05-03] MEDS ORDERED: ACETAMINOPHEN 160 MG/5 ML GT PRN (15:00)
[2017-05-03] MEDS ORDERED: VANCOMYCIN 1 GM in IV D5W 250 ML IV ONE (15:00)
[2017-05-03] MEDS ORDERED: ACETAMINOPHEN 640 MG GT PRN (15:00)
[2017-05-03] MEDS ORDERED: DEXTROSE 50%-WATER 50 ML DISP.SYRIN IV PRN (15:00)
[2017-05-03] MEDS ORDERED: NOREPINEPHRINE 8 MG in IV D5W 500 ML IV PRN ×2 (15:00→16:30)
[2017-05-03] MEDS ORDERED: ACETAMINOPHEN 325 MG TABLET PO PRN (15:00)
[2017-05-03 15:52] VITALS: BP 93/50
[2017-05-03] MEDS ORDERED: Medication Not On Formulary EA (Omeprazole 40 MG) GT SCH (16:30)
[2017-05-03] MEDS ORDERED: FEE PK DOSING 1 MIN EA MC ONE (16:47)
[2017-05-03] MEDS ORDERED: hydrALAZINE HCL 25 MG TABLET GT SCH (17:00)
[2017-05-03] MEDS ORDERED: LEVETIRACETAM (500MG) 500 MG/5 ML VIAL IV SCH (17:00)
[2017-05-03 17:28] VITALS: BP 108/56
[2017-05-03 20:49] VITALS: BP 105/53
[2017-05-03] MEDS ORDERED: AMLODIPINE BESYLATE 5 MG TABLET GT SCH (21:00)
[2017-05-03] MEDS: RENAL NOVASOURCE 1,000 ML BOTTLE GT PRN (22:43)
[2017-05-03 22:54] VITALS: BP 130/66
[2017-05-04] VITALS (8 sets, daily range): BP systolic 115–143; BP diastolic 52–76
[2017-05-04] MEDS: BLOOD SUGAR DIAGNOSTIC 1 EACH STRIP IN SCH ×6 (02:02→23:38)
[2017-05-04] MEDS: INSULIN REGULAR, HUMAN 100 UNIT/ML 3 ML VIAL SQ PRN ×5 (02:06→23:47)
[2017-05-04] MEDS: LEVOTHYROXINE SODIUM 50 MCG TABLET GT SCH ×2 (02:08→09:37)
[2017-05-04] MEDS: PROSOURCE / PROSTAT (PYXIS) 30 ML UDC GT SCH ×3 (02:08→16:35)
[2017-05-04] MEDS: ATORVASTATIN 40 MG TABLET GT SCH ×2 (02:09→21:40)
[2017-05-04] MEDS: SEVELAMER CARBONATE 0.8 GM POWD.PACK GT SCH ×3 (02:09→16:34)
[2017-05-04] MEDS: INSULIN DETEMIR 100 UNIT/ML CARTRIDGE SQ SCH ×2 (02:10→23:49)
[2017-05-04] MEDS: SENNOSIDES 8.6 MG TABLET GT SCH ×2 (02:10→21:40)
[2017-05-04] MEDS: LACTULOSE 10 G/15 ML UDC (PYXIS) GT SCH ×2 (02:10→21:39)
[2017-05-04] MEDS ORDERED: CEPHALEXIN MONOHYDRATE 500 MG CAPSULE PO ONE (02:12)
[2017-05-04] MEDS ORDERED: methylPREDNISolone SOD SUCC 40 MG/ML VIAL ONE ×2 (02:12→05:19)
[2017-05-04] MEDS: methylPREDNISolone SOD SUCC 125 MG/2ML VIAL IV SCH ×2 (02:19→05:21)
[2017-05-04] MEDS: LEVETIRACETAM SOL (5 ML) 100 MG/ML UDC GT SCH ×3 (02:19→21:39)
[2017-05-04] MEDS: LINAGLIPTIN 5 MG TABLET GT SCH (05:21)
[2017-05-04 06:28] LABS: BASOPHILS # (AUTO) 0.1 /CMM (0.0-0.2); BASOPHILS % (AUTO) 0.5 % (0.0-2.0); EOSINOPHILS # (AUTO) 0.4 /CMM (0.0-0.7); EOSINOPHILS % (AUTO) 3.3 % (0.0-6.0); HEMATOCRIT 25 % (39-51); HEMOGLOBIN 8.2 g/dL (13.5-17.5); LYMPHOCYTES # (AUTO) 1.4 /CMM (0.8-4.8); LYMPHOCYTES % (AUTO) 11.9 % (20.0-44.0); MEAN CORPUSCULAR HEMOGLOBIN 28 PG (26.0-33.0); MEAN CORPUSCULAR HGB CONC 32 g/dl (31.0-36.0); MEAN CORPUSCULAR VOLUME 88 fL (80-96); MONOCYTES # (AUTO) 1.2 /CMM (0.1-1.30); MONOCYTES % (AUTO) 10.2 % (2.0-12.0); NEUTROPHILS # (AUTO) 8.6 /CMM (1.8-8.9); NEUTROPHILS % (AUTO) 74.1 % (43.0-81.0); PLATELET COUNT (AUTO) 378 /CMM (150-450); RDW COEFFICIENT OF VARIATION 17.2 (11.5-15.0); RED BLOOD CELL COUNT(AUTO) 2.89 MIL/uL (4.5-6.0); WHITE BLOOD COUNT (AUTO) 11.6 K/uL (4.3-11.0)
[2017-05-04 06:49] LABS: TROPONIN I < 0.017 ng/mL (0.00-0.056)
[2017-05-04 06:51] LABS: ALANINE AMINOTRANSFERASE 42 U/L (12-78); ALBUMIN 2.4 g/dL (3.4-5.0); ALKALINE PHOSPHATASE 124 U/L (46-116); ASPARTATE AMINOTRANSFERASE 37 U/L (15-37); BILIRUBIN,TOTAL 0.4 mg/dL (0.2-1.0); CALCIUM, SERUM 11.5 mg/dL (8.5-10.1); CARBON DIOXIDE 22 mmol/L (21-32); CHLORIDE 100 mmol/L (98-107); CREATININE 3.7 mg/dL (0.6-1.3); GLUCOSE 202 mg/dL (74-106); POTASSIUM 3.5 mmol/L (3.5-5.1); SODIUM SERUM 133 mmol/L (136-145); TOTAL PROTEIN, SERUM 8.6 g/dL (6.4-8.2); UREA NITROGEN, BLOOD 49 mg/dL (7-18)
[2017-05-04 06:56] LABS: CREATINE KINASE MB 1.1 ng/mL (0-3.6)
[2017-05-04 07:37] LABS: INR 0.96 (0.87-1.13)
[2017-05-04] MEDS ORDERED: MINOXIDIL (2.5MG) 2.5 MG TABLET GT SCH (09:00)
[2017-05-04] MEDS ORDERED: Medication Not On Formulary EA (Omega-3 Fatty Acids (Fish Oil) 1,000 MG) GT SCH (09:00)
[2017-05-04] MEDS: PANTOPRAZOLE 40 MG VIAL IV SCH (09:37)
[2017-05-04] MEDS: VIT B CMPLX 3/FA/VIT C/BIOTIN 1 TAB TABLET GT SCH (09:37)
[2017-05-04 10:14] LABS: ABG BASE EXCESS -4.1 mmol/L; ABG OXYGEN SATURATION 95.8 % (92.0-98.5); ABG PCO2 44.1 mmHg (35.0-45.0); ABG PH 7.313 (7.350-7.450); ABG PO2 89.9 mmHg (75.0-100.0); AaDO2 144.6 mmHg; COHb 1.1 % (0.5-1.5); MetHb 0.5 % (0.0-1.5); O2Hb 94.3 % (94.0-97.0); SITE, ABG Right Radial
[2017-05-04] MEDS: ASCORBIC ACID 500 MG TABLET GT SCH (12:59)
[2017-05-04] MEDS: methylPREDNISolone SOD SUCC 40 MG/ML VIAL IV SCH ×2 (13:01→21:40)
[2017-05-04] MEDS: LEVOFLOXACIN 750 MG /D5W 150ML 150 ML IV SCH (16:34)
[2017-05-05] VITALS: BP 134/62
[2017-05-05] MEDS: RENAL NOVASOURCE 1,000 ML BOTTLE GT PRN (01:26)
[2017-05-05 04:00] VITALS: BP 139/67
[2017-05-05] MEDS: BLOOD SUGAR DIAGNOSTIC 1 EACH STRIP IN SCH ×3 (05:08→17:41)
[2017-05-05] MEDS: methylPREDNISolone SOD SUCC 40 MG/ML VIAL IV SCH ×3 (05:08→20:16)
[2017-05-05] MEDS: LINAGLIPTIN 5 MG TABLET GT SCH (05:08)
[2017-05-05] MEDS: INSULIN REGULAR, HUMAN 100 UNIT/ML 3 ML VIAL SQ PRN ×3 (05:15→17:44)
[2017-05-05 07:24] LABS: HEMATOCRIT 25 % (39-51); HEMOGLOBIN 8.1 g/dL (13.5-17.5); LYMPHOCYTES # (AUTO) 0.9 /CMM (0.8-4.8); LYMPHOCYTES % (AUTO) 8.5 % (20.0-44.0); MEAN CORPUSCULAR HEMOGLOBIN 28 PG (26.0-33.0); MEAN CORPUSCULAR HGB CONC 32 g/dl (31.0-36.0); MEAN CORPUSCULAR VOLUME 87 fL (80-96); MONOCYTES # (AUTO) 0.3 /CMM (0.1-1.30); MONOCYTES % (AUTO) 2.8 % (2.0-12.0); NEUTROPHILS # (AUTO) 9.8 /CMM (1.8-8.9); NEUTROPHILS % (AUTO) 88.7 % (43.0-81.0); PLATELET COUNT (AUTO) 383 /CMM (150-450); RDW COEFFICIENT OF VARIATION 16.9 (11.5-15.0); RED BLOOD CELL COUNT(AUTO) 2.88 MIL/uL (4.5-6.0)
[2017-05-05 07:39] LABS: CALCIUM, SERUM 11.2 mg/dL (8.5-10.1); CARBON DIOXIDE 19 mmol/L (21-32); CHLORIDE 97 mmol/L (98-107); CREATININE 4.9 mg/dL (0.6-1.3); GLUCOSE 271 mg/dL (74-106); MAGNESIUM 3.2 mg/dL (1.8-2.4); PHOSPHORUS 3.5 mg/dL (2.5-4.9); POTASSIUM 4.6 mmol/L (3.5-5.1); SODIUM SERUM 132 mmol/L (136-145)
[2017-05-05 07:48] LABS: UREA NITROGEN, BLOOD 91 mg/dL (7-18)
[2017-05-05 08:00] VITALS: BP 140/69
[2017-05-05] MEDS: SEVELAMER CARBONATE 0.8 GM POWD.PACK GT SCH ×3 (08:24→17:40)
[2017-05-05] MEDS: LEVOTHYROXINE SODIUM 50 MCG TABLET GT SCH (08:25)
[2017-05-05] MEDS: LEVETIRACETAM SOL (5 ML) 100 MG/ML UDC GT SCH ×2 (08:25→20:15)
[2017-05-05] MEDS: VIT B CMPLX 3/FA/VIT C/BIOTIN 1 TAB TABLET GT SCH (08:25)
[2017-05-05] MEDS: ASCORBIC ACID 500 MG TABLET GT SCH (08:25)
[2017-05-05] MEDS: PANTOPRAZOLE 40 MG VIAL IV SCH (08:25)
[2017-05-05] MEDS: PROSOURCE / PROSTAT (PYXIS) 30 ML UDC GT SCH ×2 (08:25→17:40)
[2017-05-05 12:00] VITALS: BP 145/62
[2017-05-05 16:00] VITALS: BP 152/70
[2017-05-05] MEDS: VANCOMYCIN 500 MG in IV D5W 100 ML IV PRN (19:28)
[2017-05-05] MEDS: LACTULOSE 10 G/15 ML UDC (PYXIS) GT SCH (20:15)
[2017-05-05] MEDS: ATORVASTATIN 40 MG TABLET GT SCH (20:16)
[2017-05-05] MEDS: SENNOSIDES 8.6 MG TABLET GT SCH (20:17)
[2017-05-05] MEDS: INSULIN DETEMIR 100 UNIT/ML CARTRIDGE SQ SCH (20:20)
[2017-05-05 21:00] VITALS: BP 128/58
[2017-05-06] VITALS: BP 131/61
[2017-05-06] MEDS: BLOOD SUGAR DIAGNOSTIC 1 EACH STRIP IN SCH ×4 (00:27→17:16)
[2017-05-06] MEDS: INSULIN REGULAR, HUMAN 100 UNIT/ML 3 ML VIAL SQ PRN ×4 (00:33→17:37)
[2017-05-06 04:00] VITALS: BP 112/46
[2017-05-06] MEDS: methylPREDNISolone SOD SUCC 40 MG/ML VIAL IV SCH ×3 (05:31→20:38)
[2017-05-06] MEDS: LINAGLIPTIN 5 MG TABLET GT SCH (05:31)
[2017-05-06 07:54] LABS: EOSINOPHILS # (AUTO) 0.1 /CMM (0.0-0.7); EOSINOPHILS % (AUTO) 0.5 % (0.0-6.0); HEMATOCRIT 25 % (39-51); HEMOGLOBIN 8.1 g/dL (13.5-17.5); LYMPHOCYTES # (AUTO) 0.6 /CMM (0.8-4.8); LYMPHOCYTES % (AUTO) 5.7 % (20.0-44.0); MEAN CORPUSCULAR HEMOGLOBIN 29 PG (26.0-33.0); MEAN CORPUSCULAR HGB CONC 33 g/dl (31.0-36.0); MEAN CORPUSCULAR VOLUME 87 fL (80-96); MONOCYTES # (AUTO) 0.6 /CMM (0.1-1.30); MONOCYTES % (AUTO) 5.7 % (2.0-12.0); NEUTROPHILS % (AUTO) 88.1 % (43.0-81.0); PLATELET COUNT (AUTO) 385 /CMM (150-450); RDW COEFFICIENT OF VARIATION 17.1 (11.5-15.0); RED BLOOD CELL COUNT(AUTO) 2.84 MIL/uL (4.5-6.0); WHITE BLOOD COUNT (AUTO) 10.2 K/uL (4.3-11.0)
[2017-05-06 08:00] VITALS: BP 132/58
[2017-05-06] MEDS: LEVOTHYROXINE SODIUM 50 MCG TABLET GT SCH (08:09)
[2017-05-06 08:25] LABS: CALCIUM, SERUM 10.1 mg/dL (8.5-10.1); CARBON DIOXIDE 25 mmol/L (21-32); CHLORIDE 99 mmol/L (98-107); CREATININE 3.6 mg/dL (0.6-1.3); GLUCOSE 291 mg/dL (74-106); MAGNESIUM 2.9 mg/dL (1.8-2.4); PHOSPHORUS 2.5 mg/dL (2.5-4.9); POTASSIUM 3.8 mmol/L (3.5-5.1); SODIUM SERUM 134 mmol/L (136-145); UREA NITROGEN, BLOOD 74 mg/dL (7-18)
[2017-05-06] MEDS: LEVETIRACETAM SOL (5 ML) 100 MG/ML UDC GT SCH ×2 (10:06→20:38)
[2017-05-06] MEDS: ASCORBIC ACID 500 MG TABLET GT SCH (10:06)
[2017-05-06] MEDS: VIT B CMPLX 3/FA/VIT C/BIOTIN 1 TAB TABLET GT SCH (10:06)
[2017-05-06] MEDS: SEVELAMER CARBONATE 0.8 GM POWD.PACK GT SCH ×3 (10:06→17:16)
[2017-05-06] MEDS: PANTOPRAZOLE 40 MG VIAL IV SCH (10:10)
[2017-05-06] MEDS: PROSOURCE / PROSTAT (PYXIS) 30 ML UDC GT SCH ×2 (10:11→17:16)
[2017-05-06 12:00] VITALS: BP_SYST 123; BP_SYST 132; BP_DIAS 56; BP_DIAS 64
[2017-05-06] MEDS: LEVOFLOXACIN 750 MG /D5W 150ML 150 ML IV SCH (15:28)
[2017-05-06 16:00] VITALS: BP_SYST 123; BP_SYST 132; BP_DIAS 64; BP_DIAS 66
[2017-05-06 20:00] VITALS: BP 150/75
[2017-05-06] MEDS: ACETAMINOPHEN 650 MG/20.3 ML UDC PO PRN (21:06)
[2017-05-06] MEDS: LACTULOSE 10 G/15 ML UDC (PYXIS) GT SCH (21:07)
[2017-05-06] MEDS: ATORVASTATIN 40 MG TABLET GT SCH (21:07)
[2017-05-06] MEDS: SENNOSIDES 8.6 MG TABLET GT SCH (21:07)
[2017-05-06] MEDS: INSULIN DETEMIR 100 UNIT/ML CARTRIDGE SQ SCH (21:31)
[2017-05-07] MEDS: BLOOD SUGAR DIAGNOSTIC 1 EACH STRIP IN SCH ×4 (01:31→17:38)
[2017-05-07 04:00] VITALS: BP 158/72
[2017-05-07] MEDS: methylPREDNISolone SOD SUCC 40 MG/ML VIAL IV SCH ×2 (05:12→12:15)
[2017-05-07] MEDS: LINAGLIPTIN 5 MG TABLET GT SCH (05:12)
[2017-05-07] MEDS: INSULIN REGULAR, HUMAN 100 UNIT/ML 3 ML VIAL SQ PRN ×3 (05:18→17:38)
[2017-05-07 08:00] VITALS: BP 149/74
[2017-05-07] MEDS: LEVOTHYROXINE SODIUM 50 MCG TABLET GT SCH (08:29)
[2017-05-07] MEDS: ASCORBIC ACID 500 MG TABLET GT SCH (08:29)
[2017-05-07] MEDS: LEVETIRACETAM SOL (5 ML) 100 MG/ML UDC GT SCH ×2 (08:29→21:33)
[2017-05-07] MEDS: SEVELAMER CARBONATE 0.8 GM POWD.PACK GT SCH ×3 (08:29→17:27)
[2017-05-07] MEDS: PANTOPRAZOLE 40 MG VIAL IV SCH (08:29)
[2017-05-07] MEDS: VIT B CMPLX 3/FA/VIT C/BIOTIN 1 TAB TABLET GT SCH (08:29)
[2017-05-07] MEDS: PROSOURCE / PROSTAT (PYXIS) 30 ML UDC GT SCH ×2 (08:30→17:37)
[2017-05-07 12:00] VITALS: BP 162/80
[2017-05-07 16:00] VITALS: BP 147/62
[2017-05-07] MEDS ORDERED: methylPREDNISolone SOD SUCC 40 MG/ML VIAL IV SCH (17:00)
[2017-05-07] MEDS: LACTOBACILLUS RHAMNOSUS GG 1 EACH CAP.SPRINK PO SCH (17:30)
[2017-05-07 20:00] VITALS: BP 97/54
[2017-05-07] MEDS: LACTULOSE 10 G/15 ML UDC (PYXIS) GT SCH (21:33)
[2017-05-07] MEDS: ATORVASTATIN 40 MG TABLET GT SCH (21:33)
[2017-05-07] MEDS: SENNOSIDES 8.6 MG TABLET GT SCH (21:33)
[2017-05-07] MEDS: INSULIN DETEMIR 100 UNIT/ML CARTRIDGE SQ SCH (21:34)
[2017-05-08] VITALS: BP 135/72
[2017-05-08] MEDS: RENAL NOVASOURCE 1,000 ML BOTTLE GT PRN (00:21)
[2017-05-08] MEDS: BLOOD SUGAR DIAGNOSTIC 1 EACH STRIP IN SCH ×4 (00:21→17:52)
[2017-05-08] MEDS: INSULIN REGULAR, HUMAN 100 UNIT/ML 3 ML VIAL SQ PRN ×4 (00:23→17:54)
[2017-05-08] MEDS: VANCOMYCIN 500 MG in IV D5W 100 ML IV PRN (01:32)
[2017-05-08 04:00] VITALS: BP 129/69
[2017-05-08] MEDS: LINAGLIPTIN 5 MG TABLET GT SCH (05:22)
[2017-05-08 08:00] VITALS: BP 162/75
[2017-05-08 08:26] LABS: BASOPHILS % (AUTO) 0.1 % (0.0-2.0); EOSINOPHILS # (AUTO) 0.1 /CMM (0.0-0.7); EOSINOPHILS % (AUTO) 0.8 % (0.0-6.0); HEMATOCRIT 29 % (39-51); HEMOGLOBIN 9.6 g/dL (13.5-17.5); LYMPHOCYTES # (AUTO) 1.2 /CMM (0.8-4.8); LYMPHOCYTES % (AUTO) 12.1 % (20.0-44.0); MEAN CORPUSCULAR HEMOGLOBIN 28 PG (26.0-33.0); MEAN CORPUSCULAR HGB CONC 33 g/dl (31.0-36.0); MEAN CORPUSCULAR VOLUME 87 fL (80-96); MONOCYTES # (AUTO) 1.1 /CMM (0.1-1.30); MONOCYTES % (AUTO) 11.8 % (2.0-12.0); NEUTROPHILS # (AUTO) 7.3 /CMM (1.8-8.9); NEUTROPHILS % (AUTO) 75.2 % (43.0-81.0); PLATELET COUNT (AUTO) 430 /CMM (150-450); RED BLOOD CELL COUNT(AUTO) 3.39 MIL/uL (4.5-6.0); WHITE BLOOD COUNT (AUTO) 9.7 K/uL (4.3-11.0)
[2017-05-08 08:46] LABS: CALCIUM, SERUM 9.9 mg/dL (8.5-10.1); CARBON DIOXIDE 29 mmol/L (21-32); CHLORIDE 95 mmol/L (98-107); CREATININE 3.6 mg/dL (0.6-1.3); GLUCOSE 187 mg/dL (74-106); POTASSIUM 4.4 mmol/L (3.5-5.1); SODIUM SERUM 135 mmol/L (136-145)
[2017-05-08 08:54] LABS: UREA NITROGEN, BLOOD 97 mg/dL (7-18)
[2017-05-08] MEDS: VIT B CMPLX 3/FA/VIT C/BIOTIN 1 TAB TABLET GT SCH (10:29)
[2017-05-08] MEDS: PANTOPRAZOLE 40 MG VIAL IV SCH (10:29)
[2017-05-08] MEDS: LACTOBACILLUS RHAMNOSUS GG 1 EACH CAP.SPRINK PO SCH ×2 (10:29→16:07)
[2017-05-08] MEDS: LEVETIRACETAM SOL (5 ML) 100 MG/ML UDC GT SCH ×2 (10:29→22:06)
[2017-05-08] MEDS: methylPREDNISolone SOD SUCC 40 MG/ML VIAL IV SCH ×2 (10:29→16:07)
[2017-05-08] MEDS: SEVELAMER CARBONATE 0.8 GM POWD.PACK GT SCH ×3 (10:29→16:07)
[2017-05-08] MEDS: LEVOTHYROXINE SODIUM 50 MCG TABLET GT SCH (10:30)
[2017-05-08] MEDS: ASCORBIC ACID 500 MG TABLET GT SCH (10:30)
[2017-05-08] MEDS: PROSOURCE / PROSTAT (PYXIS) 30 ML UDC GT SCH ×2 (10:30→16:07)
[2017-05-08 12:00] VITALS: BP 157/75
[2017-05-08 16:00] VITALS: BP 143/65
[2017-05-08] MEDS: LEVOFLOXACIN 750 MG /D5W 150ML 150 ML IV SCH (16:07)
[2017-05-08] MEDS: ACETAMINOPHEN 650 MG/20.3 ML UDC PO PRN (16:07)
[2017-05-08] MEDS ORDERED: IV NS 0.9% 250 ML BAG IV ONE (16:30)
[2017-05-08] MEDS ORDERED: Z GUARD REMEDY 4 OZ OINT TP PRN (17:30)
[2017-05-08 20:00] VITALS: BP 142/78
[2017-05-08] MEDS ORDERED: methylPREDNISolone SOD SUCC 40 MG/ML VIAL IV SCH (22:00)
[2017-05-08] MEDS: ATORVASTATIN 40 MG TABLET GT SCH (22:06)
[2017-05-08] MEDS: SENNOSIDES 8.6 MG TABLET GT SCH (22:06)
[2017-05-08] MEDS: LACTULOSE 10 G/15 ML UDC (PYXIS) GT SCH (22:06)
[2017-05-08] MEDS: INSULIN DETEMIR 100 UNIT/ML CARTRIDGE SQ SCH (22:09)
[2017-05-09] VITALS: BP 145/74
[2017-05-09] MEDS: BLOOD SUGAR DIAGNOSTIC 1 EACH STRIP IN SCH ×5 (00:19→23:07)
[2017-05-09] MEDS: INSULIN REGULAR, HUMAN 100 UNIT/ML 3 ML VIAL SQ PRN ×5 (00:22→23:11)
[2017-05-09 04:00] VITALS: BP 145/75
[2017-05-09] MEDS: LINAGLIPTIN 5 MG TABLET GT SCH (06:29)
[2017-05-09 07:38] LABS: EOSINOPHILS # (AUTO) 0.1 /CMM (0.0-0.7); EOSINOPHILS % (AUTO) 0.6 % (0.0-6.0); HEMATOCRIT 27 % (39-51); HEMOGLOBIN 8.9 g/dL (13.5-17.5); LYMPHOCYTES # (AUTO) 0.8 /CMM (0.8-4.8); LYMPHOCYTES % (AUTO) 7.4 % (20.0-44.0); MEAN CORPUSCULAR HEMOGLOBIN 28 PG (26.0-33.0); MEAN CORPUSCULAR HGB CONC 33 g/dl (31.0-36.0); MEAN CORPUSCULAR VOLUME 85 fL (80-96); MONOCYTES # (AUTO) 0.8 /CMM (0.1-1.30); MONOCYTES % (AUTO) 6.9 % (2.0-12.0); NEUTROPHILS # (AUTO) 9.4 /CMM (1.8-8.9); NEUTROPHILS % (AUTO) 85.1 % (43.0-81.0); PLATELET COUNT (AUTO) 428 /CMM (150-450); RDW COEFFICIENT OF VARIATION 16.8 (11.5-15.0); RED BLOOD CELL COUNT(AUTO) 3.14 MIL/uL (4.5-6.0); WHITE BLOOD COUNT (AUTO) 11.1 K/uL (4.3-11.0)
[2017-05-09 08:00] VITALS: BP 147/73
[2017-05-09 08:14] LABS: CALCIUM, SERUM 9.2 mg/dL (8.5-10.1); CARBON DIOXIDE 25 mmol/L (21-32); CHLORIDE 92 mmol/L (98-107); CREATININE 4.7 mg/dL (0.6-1.3); GLUCOSE 246 mg/dL (74-106); POTASSIUM 4.3 mmol/L (3.5-5.1); SODIUM SERUM 133 mmol/L (136-145)
[2017-05-09 08:16] LABS: UREA NITROGEN, BLOOD 149 mg/dL (7-18)
[2017-05-09] MEDS: PROSOURCE / PROSTAT (PYXIS) 30 ML UDC GT SCH ×2 (09:36→17:47)
[2017-05-09] MEDS: LEVETIRACETAM SOL (5 ML) 100 MG/ML UDC GT SCH ×2 (09:37→21:09)
[2017-05-09] MEDS: PANTOPRAZOLE 40 MG VIAL IV SCH (09:37)
[2017-05-09] MEDS: SEVELAMER CARBONATE 0.8 GM POWD.PACK GT SCH ×3 (09:37→17:46)
[2017-05-09] MEDS: LACTOBACILLUS RHAMNOSUS GG 1 EACH CAP.SPRINK PO SCH ×2 (09:37→17:46)
[2017-05-09] MEDS: LEVOTHYROXINE SODIUM 50 MCG TABLET GT SCH (09:37)
[2017-05-09] MEDS: ASCORBIC ACID 500 MG TABLET GT SCH (09:37)
[2017-05-09] MEDS: VIT B CMPLX 3/FA/VIT C/BIOTIN 1 TAB TABLET GT SCH (09:37)
[2017-05-09] MEDS: RENAL NOVASOURCE 1,000 ML BOTTLE GT PRN (09:38)
[2017-05-09] MEDS: methylPREDNISolone SOD SUCC 40 MG/ML VIAL IV SCH ×2 (09:38→17:46)
[2017-05-09 12:00] VITALS: BP 153/74
[2017-05-09 16:00] VITALS: BP 150/78
[2017-05-09 20:00] VITALS: BP 159/85
[2017-05-09] MEDS: ATORVASTATIN 40 MG TABLET GT SCH (21:08)
[2017-05-09] MEDS: LACTULOSE 10 G/15 ML UDC (PYXIS) GT SCH (21:08)
[2017-05-09] MEDS: SENNOSIDES 8.6 MG TABLET GT SCH (21:08)
[2017-05-09] MEDS: INSULIN DETEMIR 100 UNIT/ML CARTRIDGE SQ SCH (23:10)
[2017-05-10] VITALS: BP 144/69
[2017-05-10 04:00] VITALS: BP 144/69
[2017-05-10] MEDS: BLOOD SUGAR DIAGNOSTIC 1 EACH STRIP IN SCH ×4 (05:12→23:12)
[2017-05-10] MEDS: LINAGLIPTIN 5 MG TABLET GT SCH (05:13)
[2017-05-10] MEDS: INSULIN REGULAR, HUMAN 100 UNIT/ML 3 ML VIAL SQ PRN ×4 (05:16→23:14)
[2017-05-10 08:00] VITALS: BP 137/90
[2017-05-10 08:28] LABS: CALCIUM, SERUM 8.4 mg/dL (8.5-10.1); CARBON DIOXIDE 28 mmol/L (21-32); CHLORIDE 95 mmol/L (98-107); GLUCOSE 272 mg/dL (74-106); POTASSIUM 4.2 mmol/L (3.5-5.1); SODIUM SERUM 135 mmol/L (136-145)
[2017-05-10 08:29] LABS: UREA NITROGEN, BLOOD 121 mg/dL (7-18)
[2017-05-10] MEDS: SEVELAMER CARBONATE 0.8 GM POWD.PACK GT SCH ×3 (09:11→17:53)
[2017-05-10] MEDS: ASCORBIC ACID 500 MG TABLET GT SCH (09:11)
[2017-05-10] MEDS: methylPREDNISolone SOD SUCC 40 MG/ML VIAL IV SCH ×2 (09:11→17:53)
[2017-05-10] MEDS: PANTOPRAZOLE 40 MG VIAL IV SCH (09:11)
[2017-05-10] MEDS: VIT B CMPLX 3/FA/VIT C/BIOTIN 1 TAB TABLET GT SCH (09:11)
[2017-05-10] MEDS: LEVOTHYROXINE SODIUM 50 MCG TABLET GT SCH (09:11)
[2017-05-10] MEDS: LACTOBACILLUS RHAMNOSUS GG 1 EACH CAP.SPRINK PO SCH ×2 (09:11→17:53)
[2017-05-10] MEDS: LEVETIRACETAM SOL (5 ML) 100 MG/ML UDC GT SCH ×2 (09:11→21:42)
[2017-05-10] MEDS: PROSOURCE / PROSTAT (PYXIS) 30 ML UDC GT SCH ×2 (09:14→17:52)
[2017-05-10] MEDS: RENAL NOVASOURCE 1,000 ML BOTTLE GT PRN (09:17)
[2017-05-10 12:00] VITALS: BP_SYST 145; BP_DIAS 92; BP_DIAS 98
[2017-05-10 16:00] VITALS: BP 142/73
[2017-05-10] MEDS: LEVOFLOXACIN 750 MG /D5W 150ML 150 ML IV SCH (16:08)
[2017-05-10] MEDS: VANCOMYCIN 500 MG in IV D5W 100 ML IV PRN (17:53)
[2017-05-10 20:00] VITALS: BP 154/76
[2017-05-10] MEDS: LACTULOSE 10 G/15 ML UDC (PYXIS) GT SCH (21:42)
[2017-05-10] MEDS: ATORVASTATIN 40 MG TABLET GT SCH (21:42)
[2017-05-10] MEDS: SENNOSIDES 8.6 MG TABLET GT SCH (21:42)
[2017-05-10] MEDS: INSULIN DETEMIR 100 UNIT/ML CARTRIDGE SQ SCH (23:14)
[2017-05-11] VITALS: BP 144/66
[2017-05-11 04:00] VITALS: BP 159/72
[2017-05-11] MEDS: LINAGLIPTIN 5 MG TABLET GT SCH (05:18)
[2017-05-11] MEDS: BLOOD SUGAR DIAGNOSTIC 1 EACH STRIP IN SCH ×3 (05:18→18:43)
[2017-05-11] MEDS: INSULIN REGULAR, HUMAN 100 UNIT/ML 3 ML VIAL SQ PRN ×3 (05:25→18:53)
[2017-05-11 07:54] LABS: BASOPHILS % (AUTO) 0.1 % (0.0-2.0); HEMATOCRIT 30 % (39-51); HEMOGLOBIN 9.7 g/dL (13.5-17.5); LYMPHOCYTES # (AUTO) 0.9 /CMM (0.8-4.8); LYMPHOCYTES % (AUTO) 9.1 % (20.0-44.0); MEAN CORPUSCULAR HEMOGLOBIN 28 PG (26.0-33.0); MEAN CORPUSCULAR HGB CONC 33 g/dl (31.0-36.0); MEAN CORPUSCULAR VOLUME 86 fL (80-96); MONOCYTES # (AUTO) 0.8 /CMM (0.1-1.30); MONOCYTES % (AUTO) 8.2 % (2.0-12.0); NEUTROPHILS % (AUTO) 82.6 % (43.0-81.0); PLATELET COUNT (AUTO) 351 /CMM (150-450); RDW COEFFICIENT OF VARIATION 16.8 (11.5-15.0); RED BLOOD CELL COUNT(AUTO) 3.45 MIL/uL (4.5-6.0); WHITE BLOOD COUNT (AUTO) 9.7 K/uL (4.3-11.0)
[2017-05-11 08:00] VITALS: BP 169/66
[2017-05-11 08:10] LABS: INR 1.01 (0.87-1.13)
[2017-05-11 08:34] LABS: CALCIUM, SERUM 8.6 mg/dL (8.5-10.1); CARBON DIOXIDE 28 mmol/L (21-32); CHLORIDE 101 mmol/L (98-107); CREATININE 3.5 mg/dL (0.6-1.3); GLUCOSE 203 mg/dL (74-106); MAGNESIUM 2.6 mg/dL (1.8-2.4); PHOSPHORUS 2.9 mg/dL (2.5-4.9); POTASSIUM 4.2 mmol/L (3.5-5.1); SODIUM SERUM 141 mmol/L (136-145)
[2017-05-11 08:36] LABS: UREA NITROGEN, BLOOD 109 mg/dL (7-18)
[2017-05-11] MEDS: VIT B CMPLX 3/FA/VIT C/BIOTIN 1 TAB TABLET GT SCH (09:35)
[2017-05-11] MEDS: PANTOPRAZOLE 40 MG VIAL IV SCH (09:35)
[2017-05-11] MEDS: LACTOBACILLUS RHAMNOSUS GG 1 EACH CAP.SPRINK PO SCH ×2 (09:35→18:42)
[2017-05-11] MEDS: LEVETIRACETAM SOL (5 ML) 100 MG/ML UDC GT SCH ×2 (09:36→22:10)
[2017-05-11] MEDS: LEVOTHYROXINE SODIUM 50 MCG TABLET GT SCH (09:36)
[2017-05-11] MEDS: ASCORBIC ACID 500 MG TABLET GT SCH (09:36)
[2017-05-11] MEDS: PROSOURCE / PROSTAT (PYXIS) 30 ML UDC GT SCH ×2 (09:37→18:42)
[2017-05-11] MEDS: SEVELAMER CARBONATE 0.8 GM POWD.PACK GT SCH ×3 (09:38→18:42)
[2017-05-11] MEDS: methylPREDNISolone SOD SUCC 40 MG/ML VIAL IV SCH ×2 (09:38→18:42)
[2017-05-11] MEDS: RENAL NOVASOURCE 1,000 ML BOTTLE GT PRN (09:39)
[2017-05-11] MEDS ORDERED: VANCOMYCIN 500 MG in IV D5W 100ml IV ONE (10:30)
[2017-05-11 12:00] VITALS: BP 168/64
[2017-05-11] MEDS: CLONIDINE HCL 0.1 MG TABLET GT PRN (12:58)
[2017-05-11 16:00] VITALS: BP 138/49
[2017-05-11 20:00] VITALS: BP 152/61
[2017-05-11] MEDS: ATORVASTATIN 40 MG TABLET GT SCH (22:09)
[2017-05-11] MEDS: SENNOSIDES 8.6 MG TABLET GT SCH (22:10)
[2017-05-11] MEDS: LACTULOSE 10 G/15 ML UDC (PYXIS) GT SCH (22:10)
[2017-05-11] MEDS: INSULIN DETEMIR 100 UNIT/ML CARTRIDGE SQ SCH (22:20)
[2017-05-12] VITALS: BP_SYST 140; BP_SYST 151; BP_DIAS 54; BP_DIAS 56
[2017-05-12] MEDS: INSULIN REGULAR, HUMAN 100 UNIT/ML 3 ML VIAL SQ PRN ×4 (01:09→23:32)
[2017-05-12 04:00] VITALS: BP 140/56
[2017-05-12] MEDS: LINAGLIPTIN 5 MG TABLET GT SCH (05:07)
[2017-05-12] MEDS: BLOOD SUGAR DIAGNOSTIC 1 EACH STRIP IN SCH ×4 (05:11→23:27)
[2017-05-12 08:00] VITALS: BP 160/79
[2017-05-12 08:10] LABS: CALCIUM, SERUM 8.4 mg/dL (8.5-10.1); CARBON DIOXIDE 24 mmol/L (21-32); CHLORIDE 95 mmol/L (98-107); CREATININE 4.5 mg/dL (0.6-1.3); GLUCOSE 165 mg/dL (74-106); POTASSIUM 4.5 mmol/L (3.5-5.1); SODIUM SERUM 134 mmol/L (136-145); UREA NITROGEN, BLOOD 171 mg/dL (7-18); VANCOMYCIN,TROUGH 24 ug/ml (12-20)
[2017-05-12] MEDS: LEVOTHYROXINE SODIUM 50 MCG TABLET GT SCH (08:58)
[2017-05-12] MEDS: LEVETIRACETAM SOL (5 ML) 100 MG/ML UDC GT SCH ×2 (08:58→20:15)
[2017-05-12] MEDS: SEVELAMER CARBONATE 0.8 GM POWD.PACK GT SCH ×3 (08:59→16:54)
[2017-05-12] MEDS: PROSOURCE / PROSTAT (PYXIS) 30 ML UDC GT SCH ×2 (08:59→16:53)
[2017-05-12] MEDS: VIT B CMPLX 3/FA/VIT C/BIOTIN 1 TAB TABLET GT SCH (08:59)
[2017-05-12] MEDS: ASCORBIC ACID 500 MG TABLET GT SCH (09:00)
[2017-05-12] MEDS: PANTOPRAZOLE 40 MG VIAL IV SCH (09:00)
[2017-05-12] MEDS: LACTOBACILLUS RHAMNOSUS GG 1 EACH CAP.SPRINK PO SCH ×2 (09:01→16:53)
[2017-05-12] MEDS: methylPREDNISolone SOD SUCC 40 MG/ML VIAL IV SCH ×2 (09:01→16:54)
[2017-05-12] MEDS: MORPHINE SULFATE INJ 4 MG/ML DISP.SYRIN IV PRN (09:02)
[2017-05-12 12:00] VITALS: BP 155/79
[2017-05-12] MEDS: RENAL NOVASOURCE 1,000 ML BOTTLE GT PRN (12:00)
[2017-05-12] MEDS: LEVOFLOXACIN 750 MG /D5W 150ML 150 ML IV SCH (14:58)
[2017-05-12 16:00] VITALS: BP 158/73
[2017-05-12 17:23] LABS: TOTAL PROTEIN, SERUM 6.6 g/dL (6.4-8.2)
[2017-05-12 20:00] VITALS: BP_SYST 151; BP_SYST 160; BP_DIAS 61; BP_DIAS 73
[2017-05-12] MEDS: ACETAMINOPHEN 650 MG/20.3 ML UDC PO PRN (20:16)
[2017-05-12] MEDS: SENNOSIDES 8.6 MG TABLET GT SCH (21:15)
[2017-05-12] MEDS: LACTULOSE 10 G/15 ML UDC (PYXIS) GT SCH (21:16)
[2017-05-12] MEDS: ATORVASTATIN 40 MG TABLET GT SCH (21:16)
[2017-05-12] MEDS: INSULIN DETEMIR 100 UNIT/ML CARTRIDGE SQ SCH (21:32)
[2017-05-13 00:29] VITALS: BP 160/61
[2017-05-13 04:00] VITALS: BP 150/88
[2017-05-13] MEDS: LINAGLIPTIN 5 MG TABLET GT SCH (05:23)
[2017-05-13] MEDS: BLOOD SUGAR DIAGNOSTIC 1 EACH STRIP IN SCH ×3 (05:28→17:47)
[2017-05-13 06:53] LABS: BASOPHILS % (AUTO) 0.1 % (0.0-2.0); EOSINOPHILS % (AUTO) 0.1 % (0.0-6.0); HEMATOCRIT 27 % (39-51); LYMPHOCYTES # (AUTO) 0.9 /CMM (0.8-4.8); LYMPHOCYTES % (AUTO) 8.5 % (20.0-44.0); MEAN CORPUSCULAR HEMOGLOBIN 28 PG (26.0-33.0); MEAN CORPUSCULAR HGB CONC 33 g/dl (31.0-36.0); MEAN CORPUSCULAR VOLUME 86 fL (80-96); MONOCYTES # (AUTO) 0.9 /CMM (0.1-1.30); MONOCYTES % (AUTO) 8.8 % (2.0-12.0); NEUTROPHILS # (AUTO) 8.5 /CMM (1.8-8.9); NEUTROPHILS % (AUTO) 82.5 % (43.0-81.0); PLATELET COUNT (AUTO) 301 /CMM (150-450); RDW COEFFICIENT OF VARIATION 17.2 (11.5-15.0); RED BLOOD CELL COUNT(AUTO) 3.16 MIL/uL (4.5-6.0); WHITE BLOOD COUNT (AUTO) 10.3 K/uL (4.3-11.0)
[2017-05-13 07:50] LABS: CALCIUM, SERUM 7.8 mg/dL (8.5-10.1); CARBON DIOXIDE 24 mmol/L (21-32); CHLORIDE 98 mmol/L (98-107); CREATININE 3.2 mg/dL (0.6-1.3); GLUCOSE 87 mg/dL (74-106); MAGNESIUM 2.6 mg/dL (1.8-2.4); PHOSPHORUS 3.9 mg/dL (2.5-4.9); POTASSIUM 4.5 mmol/L (3.5-5.1); SODIUM SERUM 135 mmol/L (136-145)
[2017-05-13 08:00] VITALS: BP 175/76
[2017-05-13 08:09] LABS: UREA NITROGEN, BLOOD 104 mg/dL (7-18)
[2017-05-13] MEDS: LEVETIRACETAM SOL (5 ML) 100 MG/ML UDC GT SCH ×2 (09:08→21:25)
[2017-05-13] MEDS: LEVOTHYROXINE SODIUM 50 MCG TABLET GT SCH (09:08)
[2017-05-13] MEDS: ASCORBIC ACID 500 MG TABLET GT SCH (09:08)
[2017-05-13] MEDS: methylPREDNISolone SOD SUCC 40 MG/ML VIAL IV SCH ×2 (09:08→17:34)
[2017-05-13] MEDS: VIT B CMPLX 3/FA/VIT C/BIOTIN 1 TAB TABLET GT SCH (09:08)
[2017-05-13] MEDS: LACTOBACILLUS RHAMNOSUS GG 1 EACH CAP.SPRINK PO SCH ×2 (09:08→17:34)
[2017-05-13] MEDS: SEVELAMER CARBONATE 0.8 GM POWD.PACK GT SCH ×3 (09:08→17:34)
[2017-05-13] MEDS: PANTOPRAZOLE 40 MG VIAL IV SCH (09:08)
[2017-05-13] MEDS: PROSOURCE / PROSTAT (PYXIS) 30 ML UDC GT SCH ×2 (09:09→17:34)
[2017-05-13 12:00] VITALS: BP 172/68
[2017-05-13 16:00] VITALS: BP 156/64
[2017-05-13] MEDS: VANCOMYCIN 500 MG in IV D5W 100 ML IV PRN (17:35)
[2017-05-13] MEDS: INSULIN REGULAR, HUMAN 100 UNIT/ML 3 ML VIAL SQ PRN (17:51)
[2017-05-13 20:00] VITALS: BP 156/51
[2017-05-13] MEDS: RENAL NOVASOURCE 1,000 ML BOTTLE GT PRN (21:23)
[2017-05-13] MEDS: LACTULOSE 10 G/15 ML UDC (PYXIS) GT SCH (21:25)
[2017-05-13] MEDS: SENNOSIDES 8.6 MG TABLET GT SCH (21:25)
[2017-05-13] MEDS: INSULIN DETEMIR 100 UNIT/ML CARTRIDGE SQ SCH (21:30)
[2017-05-13] MEDS: ATORVASTATIN 40 MG TABLET GT SCH (21:32)
[2017-05-14] VITALS: BP 160/63
[2017-05-14] MEDS: BLOOD SUGAR DIAGNOSTIC 1 EACH STRIP IN SCH ×4 (00:01→17:29)
[2017-05-14] MEDS: MORPHINE SULFATE INJ 4 MG/ML DISP.SYRIN IV PRN (01:24)
[2017-05-14 04:00] VITALS: BP 134/55
[2017-05-14] MEDS: INSULIN REGULAR, HUMAN 100 UNIT/ML 3 ML VIAL SQ PRN ×2 (05:45→17:53)
[2017-05-14] MEDS: LINAGLIPTIN 5 MG TABLET GT SCH (05:46)
[2017-05-14 08:00] VITALS: BP 144/69
[2017-05-14 08:10] LABS: CALCIUM, SERUM 7.5 mg/dL (8.5-10.1); CARBON DIOXIDE 28 mmol/L (21-32); CHLORIDE 99 mmol/L (98-107); GLUCOSE 89 mg/dL (74-106); POTASSIUM 4.1 mmol/L (3.5-5.1); SODIUM SERUM 135 mmol/L (136-145)
[2017-05-14 08:36] LABS: UREA NITROGEN, BLOOD 84 mg/dL (7-18)
[2017-05-14] MEDS: LACTOBACILLUS RHAMNOSUS GG 1 EACH CAP.SPRINK PO SCH ×2 (09:21→17:29)
[2017-05-14] MEDS: VIT B CMPLX 3/FA/VIT C/BIOTIN 1 TAB TABLET GT SCH (09:21)
[2017-05-14] MEDS: ASCORBIC ACID 500 MG TABLET GT SCH (09:21)
[2017-05-14] MEDS: LEVETIRACETAM SOL (5 ML) 100 MG/ML UDC GT SCH ×2 (09:22→20:39)
[2017-05-14] MEDS: PANTOPRAZOLE 40 MG VIAL IV SCH (09:22)
[2017-05-14] MEDS: SEVELAMER CARBONATE 0.8 GM POWD.PACK GT SCH ×3 (09:22→17:29)
[2017-05-14] MEDS: PROSOURCE / PROSTAT (PYXIS) 30 ML UDC GT SCH ×2 (09:22→17:29)
[2017-05-14] MEDS: methylPREDNISolone SOD SUCC 40 MG/ML VIAL IV SCH ×2 (09:22→17:29)
[2017-05-14] MEDS: LEVOTHYROXINE SODIUM 50 MCG TABLET GT SCH (09:24)
[2017-05-14 12:00] VITALS: BP 146/62
[2017-05-14] MEDS: AMLODIPINE BESYLATE 5 MG TABLET PO SCH (13:08)
[2017-05-14] MEDS: LEVOFLOXACIN 750 MG /D5W 150ML 150 ML IV SCH (15:05)
[2017-05-14 16:00] VITALS: BP_SYST 139; BP_SYST 146; BP_DIAS 59; BP_DIAS 62
[2017-05-14] MEDS: ONDANSETRON HCL/PF 4 MG/2 ML VIAL IVP PRN (17:29)
[2017-05-14 20:00] VITALS: BP 141/57
[2017-05-14] MEDS: RENAL NOVASOURCE 1,000 ML BOTTLE GT PRN (20:38)
[2017-05-14] MEDS: LACTULOSE 10 G/15 ML UDC (PYXIS) GT SCH (21:28)
[2017-05-14] MEDS: SENNOSIDES 8.6 MG TABLET GT SCH (21:28)
[2017-05-14] MEDS: ATORVASTATIN 40 MG TABLET GT SCH (21:28)
[2017-05-14] MEDS: INSULIN DETEMIR 100 UNIT/ML CARTRIDGE SQ SCH (21:30)
[2017-05-15] VITALS (8 sets, daily range): BP systolic 99–166; BP diastolic 49–74
[2017-05-15] MEDS: BLOOD SUGAR DIAGNOSTIC 1 EACH STRIP IN SCH ×4 (00:06→17:01)
[2017-05-15] MEDS: INSULIN REGULAR, HUMAN 100 UNIT/ML 3 ML VIAL SQ PRN ×2 (00:12→18:50)
[2017-05-15] MEDS: LINAGLIPTIN 5 MG TABLET GT SCH (05:58)
[2017-05-15] MEDS: VIT B CMPLX 3/FA/VIT C/BIOTIN 1 TAB TABLET GT SCH (08:33)
[2017-05-15] MEDS: LACTOBACILLUS RHAMNOSUS GG 1 EACH CAP.SPRINK PO SCH ×2 (08:33→16:48)
[2017-05-15] MEDS: LEVOTHYROXINE SODIUM 50 MCG TABLET GT SCH (08:33)
[2017-05-15] MEDS: ASCORBIC ACID 500 MG TABLET GT SCH (08:33)
[2017-05-15] MEDS: LEVETIRACETAM SOL (5 ML) 100 MG/ML UDC GT SCH ×2 (08:34→22:05)
[2017-05-15] MEDS: PANTOPRAZOLE 40 MG VIAL IV SCH (08:34)
[2017-05-15] MEDS: methylPREDNISolone SOD SUCC 40 MG/ML VIAL IV SCH ×2 (08:34→16:48)
[2017-05-15] MEDS: PROSOURCE / PROSTAT (PYXIS) 30 ML UDC GT SCH ×2 (08:34→16:47)
[2017-05-15] MEDS: SEVELAMER CARBONATE 0.8 GM POWD.PACK GT SCH ×3 (08:35→16:48)
[2017-05-15] MEDS: AMLODIPINE BESYLATE 5 MG TABLET PO SCH (08:35)
[2017-05-15] MEDS: VANCOMYCIN 500 MG in IV D5W 100 ML IV PRN (20:32)
[2017-05-15] MEDS: MORPHINE SULFATE INJ 4 MG/ML DISP.SYRIN IV PRN (20:34)
[2017-05-15] MEDS: SENNOSIDES 8.6 MG TABLET GT SCH (22:05)
[2017-05-15] MEDS: ATORVASTATIN 40 MG TABLET GT SCH (22:05)
[2017-05-15] MEDS: LACTULOSE 10 G/15 ML UDC (PYXIS) GT SCH (22:05)
[2017-05-15] MEDS: INSULIN DETEMIR 100 UNIT/ML CARTRIDGE SQ SCH (22:07)
[2017-05-16] VITALS (8 sets, daily range): BP systolic 146–169; BP diastolic 40–74
[2017-05-16] MEDS: INSULIN REGULAR, HUMAN 100 UNIT/ML 3 ML VIAL SQ PRN ×2 (00:39→19:07)
[2017-05-16] MEDS: BLOOD SUGAR DIAGNOSTIC 1 EACH STRIP IN SCH ×4 (00:41→18:00)
[2017-05-16] MEDS: RENAL NOVASOURCE 1,000 ML BOTTLE GT PRN (01:17)
[2017-05-16] MEDS: LINAGLIPTIN 5 MG TABLET GT SCH (05:54)
[2017-05-16] MEDS: LEVETIRACETAM SOL (5 ML) 100 MG/ML UDC GT SCH ×2 (08:26→23:00)
[2017-05-16] MEDS: LEVOTHYROXINE SODIUM 50 MCG TABLET GT SCH (08:26)
[2017-05-16] MEDS: methylPREDNISolone SOD SUCC 40 MG/ML VIAL IV SCH ×2 (08:26→16:55)
[2017-05-16] MEDS: SEVELAMER CARBONATE 0.8 GM POWD.PACK GT SCH ×3 (08:26→16:55)
[2017-05-16] MEDS: LACTOBACILLUS RHAMNOSUS GG 1 EACH CAP.SPRINK PO SCH ×2 (08:26→16:56)
[2017-05-16] MEDS: ASCORBIC ACID 500 MG TABLET GT SCH (08:26)
[2017-05-16] MEDS: AMLODIPINE BESYLATE 5 MG TABLET PO SCH (08:26)
[2017-05-16] MEDS: PANTOPRAZOLE 40 MG VIAL IV SCH (08:26)
[2017-05-16] MEDS: VIT B CMPLX 3/FA/VIT C/BIOTIN 1 TAB TABLET GT SCH (08:27)
[2017-05-16] MEDS: PROSOURCE / PROSTAT (PYXIS) 30 ML UDC GT SCH ×2 (08:33→16:55)
[2017-05-16] MEDS: ONDANSETRON HCL/PF 4 MG/2 ML VIAL IVP PRN (08:49)
[2017-05-16] MEDS: LEVOFLOXACIN 750 MG /D5W 150ML 150 ML IV SCH (16:55)
[2017-05-16] MEDS: INSULIN DETEMIR 100 UNIT/ML CARTRIDGE SQ SCH (23:00)
[2017-05-16] MEDS: ATORVASTATIN 40 MG TABLET GT SCH (23:02)
[2017-05-16] MEDS: SENNOSIDES 8.6 MG TABLET GT SCH (23:02)
[2017-05-16] MEDS: LACTULOSE 10 G/15 ML UDC (PYXIS) GT SCH (23:02)
[2017-05-17] VITALS (7 sets, daily range): BP systolic 125–179; BP diastolic 48–75
[2017-05-17] MEDS: INSULIN REGULAR, HUMAN 100 UNIT/ML 3 ML VIAL SQ PRN ×3 (01:14→17:08)
[2017-05-17] MEDS: LEVOTHYROXINE SODIUM 50 MCG TABLET GT SCH (06:24)
[2017-05-17] MEDS: LINAGLIPTIN 5 MG TABLET GT SCH (06:24)
[2017-05-17] MEDS: BLOOD SUGAR DIAGNOSTIC 1 EACH STRIP IN SCH ×4 (06:46→17:01)
[2017-05-17 07:44] LABS: CALCIUM, SERUM 7.4 mg/dL (8.5-10.1); CARBON DIOXIDE 23 mmol/L (21-32); CHLORIDE 93 mmol/L (98-107); CREATININE 4.9 mg/dL (0.6-1.3); GLUCOSE 182 mg/dL (74-106); POTASSIUM 5.3 mmol/L (3.5-5.1); SODIUM SERUM 130 mmol/L (136-145); UREA NITROGEN, BLOOD 143 mg/dL (7-18); VANCOMYCIN,TROUGH 23 ug/ml (12-20)
[2017-05-17] MEDS: LEVETIRACETAM SOL (5 ML) 100 MG/ML UDC GT SCH ×2 (10:07→21:15)
[2017-05-17] MEDS: PANTOPRAZOLE 40 MG VIAL IV SCH (10:08)
[2017-05-17] MEDS: methylPREDNISolone SOD SUCC 40 MG/ML VIAL IV SCH ×2 (10:08→17:01)
[2017-05-17] MEDS: ASCORBIC ACID 500 MG TABLET GT SCH (10:08)
[2017-05-17] MEDS: VIT B CMPLX 3/FA/VIT C/BIOTIN 1 TAB TABLET GT SCH (10:09)
[2017-05-17] MEDS: AMLODIPINE BESYLATE 5 MG TABLET PO SCH (10:09)
[2017-05-17] MEDS: SEVELAMER CARBONATE 0.8 GM POWD.PACK GT SCH ×3 (10:09→17:01)
[2017-05-17] MEDS: LACTOBACILLUS RHAMNOSUS GG 1 EACH CAP.SPRINK PO SCH ×2 (10:10→17:01)
[2017-05-17] MEDS: PROSOURCE / PROSTAT (PYXIS) 30 ML UDC GT SCH ×2 (10:10→17:04)
[2017-05-17 14:54] LABS: HEMOGLOBIN 8.4 g/dL (13.5-17.5)
[2017-05-17] MEDS ORDERED: EPOETIN ALFA (10,000 UNIT) 10,000 UNIT/ML VIAL IV ONE (15:00)
[2017-05-17] MEDS: ATORVASTATIN 40 MG TABLET GT SCH (21:14)
[2017-05-17] MEDS: LACTULOSE 10 G/15 ML UDC (PYXIS) GT SCH (21:15)
[2017-05-17] MEDS: SENNOSIDES 8.6 MG TABLET GT SCH (21:15)
[2017-05-17] MEDS: INSULIN DETEMIR 100 UNIT/ML CARTRIDGE SQ SCH (21:50)
[2017-05-18] VITALS: BP 156/64
[2017-05-18] MEDS: BLOOD SUGAR DIAGNOSTIC 1 EACH STRIP IN SCH ×4 (00:02→16:55)
[2017-05-18] MEDS: INSULIN REGULAR, HUMAN 100 UNIT/ML 3 ML VIAL SQ PRN ×3 (00:04→16:58)
[2017-05-18 04:00] VITALS: BP_SYST 139; BP_SYST 142; BP_DIAS 65; BP_DIAS 66
[2017-05-18] MEDS: LINAGLIPTIN 5 MG TABLET GT SCH (05:13)
[2017-05-18 08:00] VITALS: BP 132/63
[2017-05-18 08:06] LABS: CARBON DIOXIDE 27 mmol/L (21-32); CHLORIDE 95 mmol/L (98-107); CREATININE 4.2 mg/dL (0.6-1.3); GLUCOSE 139 mg/dL (74-106); POTASSIUM 4.2 mmol/L (3.5-5.1); SODIUM SERUM 132 mmol/L (136-145)
[2017-05-18 08:07] LABS: UREA NITROGEN, BLOOD 118 mg/dL (7-18)
[2017-05-18] MEDS: SEVELAMER CARBONATE 0.8 GM POWD.PACK GT SCH ×3 (08:29→16:52)
[2017-05-18] MEDS: methylPREDNISolone SOD SUCC 40 MG/ML VIAL IV SCH ×2 (08:30→16:52)
[2017-05-18] MEDS: LEVOTHYROXINE SODIUM 50 MCG TABLET GT SCH (08:30)
[2017-05-18] MEDS: PANTOPRAZOLE 40 MG VIAL IV SCH (08:30)
[2017-05-18] MEDS: LACTOBACILLUS RHAMNOSUS GG 1 EACH CAP.SPRINK PO SCH ×2 (08:30→16:52)
[2017-05-18] MEDS: AMLODIPINE BESYLATE 5 MG TABLET PO SCH (08:30)
[2017-05-18] MEDS: LEVETIRACETAM SOL (5 ML) 100 MG/ML UDC GT SCH ×2 (08:30→21:31)
[2017-05-18] MEDS: ASCORBIC ACID 500 MG TABLET GT SCH (08:31)
[2017-05-18] MEDS: VIT B CMPLX 3/FA/VIT C/BIOTIN 1 TAB TABLET GT SCH (08:31)
[2017-05-18] MEDS: PROSOURCE / PROSTAT (PYXIS) 30 ML UDC GT SCH ×2 (08:32→16:52)
[2017-05-18 12:00] VITALS: BP 149/74
[2017-05-18 16:00] VITALS: BP 139/66
[2017-05-18 20:00] VITALS: BP 155/54
[2017-05-18] MEDS: SENNOSIDES 8.6 MG TABLET GT SCH (21:31)
[2017-05-18] MEDS: LACTULOSE 10 G/15 ML UDC (PYXIS) GT SCH (21:31)
[2017-05-18] MEDS: ATORVASTATIN 40 MG TABLET GT SCH (21:31)
[2017-05-18] MEDS: INSULIN DETEMIR 100 UNIT/ML CARTRIDGE SQ SCH (21:33)
[2017-05-18] MEDS: RENAL NOVASOURCE 1,000 ML BOTTLE GT PRN (21:34)
[2017-05-19] VITALS: BP 157/76
[2017-05-19] MEDS: BLOOD SUGAR DIAGNOSTIC 1 EACH STRIP IN SCH ×4 (01:02→18:17)
[2017-05-19] MEDS: INSULIN REGULAR, HUMAN 100 UNIT/ML 3 ML VIAL SQ PRN ×4 (01:03→18:26)
[2017-05-19 04:00] VITALS: BP 154/74
[2017-05-19] MEDS: LINAGLIPTIN 5 MG TABLET GT SCH (06:46)
[2017-05-19 07:19] LABS: CALCIUM, SERUM 7.7 mg/dL (8.5-10.1); CARBON DIOXIDE 27 mmol/L (21-32); CHLORIDE 105 mmol/L (98-107); CREATININE 3.6 mg/dL (0.6-1.3); GLUCOSE 192 mg/dL (74-106); POTASSIUM 4.7 mmol/L (3.5-5.1); SODIUM SERUM 141 mmol/L (136-145)
[2017-05-19 07:47] LABS: UREA NITROGEN, BLOOD 86 mg/dL (7-18)
[2017-05-19 08:00] VITALS: BP 153/71
[2017-05-19] MEDS: PROSOURCE / PROSTAT (PYXIS) 30 ML UDC GT SCH ×2 (09:38→18:17)
[2017-05-19] MEDS: LACTOBACILLUS RHAMNOSUS GG 1 EACH CAP.SPRINK PO SCH ×2 (09:38→18:16)
[2017-05-19] MEDS: VIT B CMPLX 3/FA/VIT C/BIOTIN 1 TAB TABLET GT SCH (09:38)
[2017-05-19] MEDS: SEVELAMER CARBONATE 0.8 GM POWD.PACK GT SCH ×3 (09:39→18:17)
[2017-05-19] MEDS: LEVOTHYROXINE SODIUM 50 MCG TABLET GT SCH (09:39)
[2017-05-19] MEDS: ASCORBIC ACID 500 MG TABLET GT SCH (09:39)
[2017-05-19] MEDS: PANTOPRAZOLE 40 MG VIAL IV SCH (09:39)
[2017-05-19] MEDS: LEVETIRACETAM SOL (5 ML) 100 MG/ML UDC GT SCH ×2 (09:39→21:17)
[2017-05-19] MEDS: methylPREDNISolone SOD SUCC 40 MG/ML VIAL IV SCH ×2 (09:40→18:17)
[2017-05-19] MEDS: AMLODIPINE BESYLATE 5 MG TABLET PO SCH (09:41)
[2017-05-19 12:00] VITALS: BP 154/69
[2017-05-19 16:00] VITALS: BP 160/60
[2017-05-19 20:00] VITALS: BP 154/67
[2017-05-19] MEDS: SENNOSIDES 8.6 MG TABLET GT SCH (21:16)
[2017-05-19] MEDS: ATORVASTATIN 40 MG TABLET GT SCH (21:16)
[2017-05-19] MEDS: LACTULOSE 10 G/15 ML UDC (PYXIS) GT SCH (21:16)
[2017-05-19] MEDS: INSULIN DETEMIR 100 UNIT/ML CARTRIDGE SQ SCH (21:51)
[2017-05-20] VITALS (9 sets, daily range): BP systolic 131–145; BP diastolic 55–67
[2017-05-20] MEDS: BLOOD SUGAR DIAGNOSTIC 1 EACH STRIP IN SCH ×5 (00:24→23:47)
[2017-05-20] MEDS: INSULIN REGULAR, HUMAN 100 UNIT/ML 3 ML VIAL SQ PRN ×5 (00:27→23:48)
[2017-05-20] MEDS: RENAL NOVASOURCE 1,000 ML BOTTLE GT PRN (05:24)
[2017-05-20] MEDS: LINAGLIPTIN 5 MG TABLET GT SCH (05:45)
[2017-05-20 07:38] LABS: EOSINOPHILS # (AUTO) 0.1 /CMM (0.0-0.7); EOSINOPHILS % (AUTO) 0.8 % (0.0-6.0); HEMATOCRIT 27 % (39-51); HEMOGLOBIN 8.7 g/dL (13.5-17.5); LYMPHOCYTES # (AUTO) 0.9 /CMM (0.8-4.8); LYMPHOCYTES % (AUTO) 9.7 % (20.0-44.0); MEAN CORPUSCULAR HEMOGLOBIN 28 PG (26.0-33.0); MEAN CORPUSCULAR HGB CONC 33 g/dl (31.0-36.0); MEAN CORPUSCULAR VOLUME 86 fL (80-96); MONOCYTES # (AUTO) 0.6 /CMM (0.1-1.30); MONOCYTES % (AUTO) 6.5 % (2.0-12.0); NEUTROPHILS # (AUTO) 7.2 /CMM (1.8-8.9); PLATELET COUNT (AUTO) 179 /CMM (150-450); RDW COEFFICIENT OF VARIATION 16.3 (11.5-15.0); WHITE BLOOD COUNT (AUTO) 8.8 K/uL (4.3-11.0)
[2017-05-20 07:52] LABS: CALCIUM, SERUM 7.8 mg/dL (8.5-10.1); CARBON DIOXIDE 25 mmol/L (21-32); CHLORIDE 103 mmol/L (98-107); CREATININE 3.2 mg/dL (0.6-1.3); GLUCOSE 166 mg/dL (74-106); MAGNESIUM 2.6 mg/dL (1.8-2.4); PHOSPHORUS 3.7 mg/dL (2.5-4.9); SODIUM SERUM 139 mmol/L (136-145); UREA NITROGEN, BLOOD 73 mg/dL (7-18)
[2017-05-20] MEDS: VIT B CMPLX 3/FA/VIT C/BIOTIN 1 TAB TABLET GT SCH (08:42)
[2017-05-20] MEDS: SEVELAMER CARBONATE 0.8 GM POWD.PACK GT SCH ×3 (08:42→16:44)
[2017-05-20] MEDS: LACTOBACILLUS RHAMNOSUS GG 1 EACH CAP.SPRINK PO SCH ×2 (08:42→16:44)
[2017-05-20] MEDS: PANTOPRAZOLE 40 MG VIAL IV SCH (08:43)
[2017-05-20] MEDS: methylPREDNISolone SOD SUCC 40 MG/ML VIAL IV SCH ×2 (08:43→16:44)
[2017-05-20] MEDS: LEVOTHYROXINE SODIUM 50 MCG TABLET GT SCH (08:43)
[2017-05-20] MEDS: ASCORBIC ACID 500 MG TABLET GT SCH (08:43)
[2017-05-20] MEDS: LEVETIRACETAM SOL (5 ML) 100 MG/ML UDC GT SCH ×2 (08:43→21:47)
[2017-05-20] MEDS: AMLODIPINE BESYLATE 5 MG TABLET PO SCH (08:43)
[2017-05-20] MEDS: PROSOURCE / PROSTAT (PYXIS) 30 ML UDC GT SCH ×2 (08:45→16:46)
[2017-05-20] MEDS: SENNOSIDES 8.6 MG TABLET GT SCH (21:47)
[2017-05-20] MEDS: LACTULOSE 10 G/15 ML UDC (PYXIS) GT SCH (21:47)
[2017-05-20] MEDS: ATORVASTATIN 40 MG TABLET GT SCH (21:47)
[2017-05-20] MEDS: INSULIN DETEMIR 100 UNIT/ML CARTRIDGE SQ SCH (23:46)
[2017-05-21] VITALS (8 sets, daily range): BP systolic 121–186; BP diastolic 50–81
[2017-05-21] MEDS: BLOOD SUGAR DIAGNOSTIC 1 EACH STRIP IN SCH ×4 (05:41→23:01)
[2017-05-21] MEDS: LINAGLIPTIN 5 MG TABLET GT SCH (05:41)
[2017-05-21] MEDS: INSULIN REGULAR, HUMAN 100 UNIT/ML 3 ML VIAL SQ PRN ×3 (05:45→23:03)
[2017-05-21 07:10] LABS: CALCIUM, SERUM 7.8 mg/dL (8.5-10.1); CARBON DIOXIDE 24 mmol/L (21-32); CHLORIDE 97 mmol/L (98-107); CREATININE 4.3 mg/dL (0.6-1.3); GLUCOSE 219 mg/dL (74-106); POTASSIUM 4.9 mmol/L (3.5-5.1); SODIUM SERUM 134 mmol/L (136-145)
[2017-05-21 07:15] LABS: UREA NITROGEN, BLOOD 120 mg/dL (7-18)
[2017-05-21] MEDS: VIT B CMPLX 3/FA/VIT C/BIOTIN 1 TAB TABLET GT SCH (08:40)
[2017-05-21] MEDS: LEVOTHYROXINE SODIUM 50 MCG TABLET GT SCH (08:40)
[2017-05-21] MEDS: ASCORBIC ACID 500 MG TABLET GT SCH (08:41)
[2017-05-21] MEDS: LACTOBACILLUS RHAMNOSUS GG 1 EACH CAP.SPRINK PO SCH ×2 (08:43→16:43)
[2017-05-21] MEDS: SEVELAMER CARBONATE 0.8 GM POWD.PACK GT SCH ×3 (08:44→17:06)
[2017-05-21] MEDS: LEVETIRACETAM SOL (5 ML) 100 MG/ML UDC GT SCH ×2 (08:45→21:18)
[2017-05-21] MEDS: PROSOURCE / PROSTAT (PYXIS) 30 ML UDC GT SCH ×2 (08:52→16:41)
[2017-05-21] MEDS: PANTOPRAZOLE 40 MG VIAL IV SCH (09:53)
[2017-05-21] MEDS: methylPREDNISolone SOD SUCC 40 MG/ML VIAL IV SCH ×2 (10:10→17:11)
[2017-05-21] MEDS: AMLODIPINE BESYLATE 5 MG TABLET PO SCH (10:11)
[2017-05-21] MEDS: LACTULOSE 10 G/15 ML UDC (PYXIS) GT SCH (21:18)
[2017-05-21] MEDS: SENNOSIDES 8.6 MG TABLET GT SCH (21:18)
[2017-05-21] MEDS: ATORVASTATIN 40 MG TABLET GT SCH (21:18)
[2017-05-21] MEDS: INSULIN DETEMIR 100 UNIT/ML CARTRIDGE SQ SCH (23:01)
[2017-05-21] MEDS: CLONIDINE HCL 0.1 MG TABLET GT PRN (23:51)
[2017-05-22] VITALS: BP 164/67
[2017-05-22 04:00] VITALS: BP 139/64
[2017-05-22] MEDS: BLOOD SUGAR DIAGNOSTIC 1 EACH STRIP IN SCH ×3 (05:24→17:33)
[2017-05-22] MEDS: INSULIN REGULAR, HUMAN 100 UNIT/ML 3 ML VIAL SQ PRN ×3 (05:25→17:52)
[2017-05-22] MEDS: LINAGLIPTIN 5 MG TABLET GT SCH (05:27)
[2017-05-22 07:46] LABS: CALCIUM, SERUM 7.7 mg/dL (8.5-10.1); CARBON DIOXIDE 25 mmol/L (21-32); CHLORIDE 97 mmol/L (98-107); CREATININE 3.5 mg/dL (0.6-1.3); GLUCOSE 169 mg/dL (74-106); POTASSIUM 4.3 mmol/L (3.5-5.1); SODIUM SERUM 133 mmol/L (136-145)
[2017-05-22 07:48] LABS: UREA NITROGEN, BLOOD 82 mg/dL (7-18)
[2017-05-22 08:00] VITALS: BP 128/65
[2017-05-22] MEDS: PANTOPRAZOLE 40 MG VIAL IV SCH (09:40)
[2017-05-22] MEDS: SEVELAMER CARBONATE 0.8 GM POWD.PACK GT SCH ×3 (09:40→18:19)
[2017-05-22] MEDS: ASCORBIC ACID 500 MG TABLET GT SCH (09:41)
[2017-05-22] MEDS: methylPREDNISolone SOD SUCC 40 MG/ML VIAL IV SCH ×2 (09:41→18:19)
[2017-05-22] MEDS: LEVETIRACETAM SOL (5 ML) 100 MG/ML UDC GT SCH ×2 (09:41→21:17)
[2017-05-22] MEDS: LACTOBACILLUS RHAMNOSUS GG 1 EACH CAP.SPRINK PO SCH ×2 (09:41→18:20)
[2017-05-22] MEDS: VIT B CMPLX 3/FA/VIT C/BIOTIN 1 TAB TABLET GT SCH (09:41)
[2017-05-22] MEDS: LEVOTHYROXINE SODIUM 50 MCG TABLET GT SCH (09:41)
[2017-05-22] MEDS: PROSOURCE / PROSTAT (PYXIS) 30 ML UDC GT SCH ×2 (09:43→18:19)
[2017-05-22] MEDS: AMLODIPINE BESYLATE 5 MG TABLET PO SCH (10:18)
[2017-05-22 12:00] VITALS: BP_SYST 128; BP_SYST 132; BP_DIAS 58; BP_DIAS 65
[2017-05-22] MEDS: RENAL NOVASOURCE 1,000 ML BOTTLE GT PRN (12:45)
[2017-05-22 16:00] VITALS: BP 125/58
[2017-05-22 20:00] VITALS: BP 133/64
[2017-05-22] MEDS: LACTULOSE 10 G/15 ML UDC (PYXIS) GT SCH (21:18)
[2017-05-22] MEDS: SENNOSIDES 8.6 MG TABLET GT SCH (21:18)
[2017-05-22] MEDS: ATORVASTATIN 40 MG TABLET GT SCH (21:18)
[2017-05-22] MEDS: INSULIN DETEMIR 100 UNIT/ML CARTRIDGE SQ SCH (22:33)
[2017-05-23] VITALS (8 sets, daily range): BP systolic 101–154; BP diastolic 53–78
[2017-05-23] MEDS: BLOOD SUGAR DIAGNOSTIC 1 EACH STRIP IN SCH ×5 (00:44→23:35)
[2017-05-23] MEDS: INSULIN REGULAR, HUMAN 100 UNIT/ML 3 ML VIAL SQ PRN ×4 (05:51→23:35)
[2017-05-23] MEDS: LINAGLIPTIN 5 MG TABLET GT SCH (05:57)
[2017-05-23] MEDS: methylPREDNISolone SOD SUCC 40 MG/ML VIAL IV SCH ×2 (09:02→17:10)
[2017-05-23] MEDS: PANTOPRAZOLE 40 MG VIAL IV SCH (09:02)
[2017-05-23] MEDS: LEVETIRACETAM SOL (5 ML) 100 MG/ML UDC GT SCH ×2 (09:02→22:18)
[2017-05-23] MEDS: VIT B CMPLX 3/FA/VIT C/BIOTIN 1 TAB TABLET GT SCH (09:02)
[2017-05-23] MEDS: LEVOTHYROXINE SODIUM 50 MCG TABLET GT SCH (09:02)
[2017-05-23] MEDS: SEVELAMER CARBONATE 0.8 GM POWD.PACK GT SCH ×3 (09:02→17:10)
[2017-05-23] MEDS: AMLODIPINE BESYLATE 5 MG TABLET PO SCH (09:03)
[2017-05-23] MEDS: PROSOURCE / PROSTAT (PYXIS) 30 ML UDC GT SCH ×2 (09:03→17:10)
[2017-05-23] MEDS: ASCORBIC ACID 500 MG TABLET GT SCH (09:03)
[2017-05-23] MEDS: LACTOBACILLUS RHAMNOSUS GG 1 EACH CAP.SPRINK PO SCH ×2 (09:03→17:10)
[2017-05-23] MEDS: ATORVASTATIN 40 MG TABLET GT SCH (22:18)
[2017-05-23] MEDS: SENNOSIDES 8.6 MG TABLET GT SCH (22:18)
[2017-05-23] MEDS: LACTULOSE 10 G/15 ML UDC (PYXIS) GT SCH (22:18)
[2017-05-23] MEDS: INSULIN DETEMIR 100 UNIT/ML CARTRIDGE SQ SCH (23:35)
[2017-05-24] VITALS: BP 147/78
[2017-05-24 04:00] VITALS: BP 156/72
[2017-05-24] MEDS: LINAGLIPTIN 5 MG TABLET GT SCH (06:27)
[2017-05-24] MEDS: BLOOD SUGAR DIAGNOSTIC 1 EACH STRIP IN SCH ×4 (06:32→23:18)
[2017-05-24] MEDS: RENAL NOVASOURCE 1,000 ML BOTTLE GT PRN (07:42)
[2017-05-24 08:00] VITALS: BP 147/64
[2017-05-24] MEDS: LEVETIRACETAM SOL (5 ML) 100 MG/ML UDC GT SCH ×2 (09:30→20:58)
[2017-05-24] MEDS: PANTOPRAZOLE 40 MG VIAL IV SCH (09:30)
[2017-05-24] MEDS: VIT B CMPLX 3/FA/VIT C/BIOTIN 1 TAB TABLET GT SCH (09:32)
[2017-05-24] MEDS: ASCORBIC ACID 500 MG TABLET GT SCH (09:32)
[2017-05-24] MEDS: LACTOBACILLUS RHAMNOSUS GG 1 EACH CAP.SPRINK PO SCH ×2 (09:32→17:24)
[2017-05-24] MEDS: methylPREDNISolone SOD SUCC 40 MG/ML VIAL IV SCH ×2 (09:32→17:25)
[2017-05-24] MEDS: LEVOTHYROXINE SODIUM 50 MCG TABLET GT SCH (09:32)
[2017-05-24] MEDS: SEVELAMER CARBONATE 0.8 GM POWD.PACK GT SCH ×3 (09:33→17:25)
[2017-05-24] MEDS: PROSOURCE / PROSTAT (PYXIS) 30 ML UDC GT SCH ×2 (09:40→17:40)
[2017-05-24] MEDS: AMLODIPINE BESYLATE 5 MG TABLET PO SCH (09:40)
[2017-05-24 12:00] VITALS: BP 146/66
[2017-05-24 16:00] VITALS: BP 150/56
[2017-05-24] MEDS: INSULIN REGULAR, HUMAN 100 UNIT/ML 3 ML VIAL SQ PRN ×2 (17:37→23:27)
[2017-05-24 20:00] VITALS: BP 130/60
[2017-05-24] MEDS: SENNOSIDES 8.6 MG TABLET GT SCH (21:01)
[2017-05-24] MEDS: ATORVASTATIN 40 MG TABLET GT SCH (21:01)
[2017-05-24] MEDS: LACTULOSE 10 G/15 ML UDC (PYXIS) GT SCH (21:03)
[2017-05-24] MEDS: INSULIN DETEMIR 100 UNIT/ML CARTRIDGE SQ SCH (23:16)
[2017-05-25] VITALS: BP 159/68
[2017-05-25 04:00] VITALS: BP_SYST 150; BP_SYST 159; BP_DIAS 60; BP_DIAS 75
[2017-05-25] MEDS: BLOOD SUGAR DIAGNOSTIC 1 EACH STRIP IN SCH ×4 (05:16→23:58)
[2017-05-25] MEDS: RENAL NOVASOURCE 1,000 ML BOTTLE GT PRN (05:17)
[2017-05-25] MEDS: LINAGLIPTIN 5 MG TABLET GT SCH (05:17)
[2017-05-25 08:00] VITALS: BP_SYST 153; BP_SYST 163; BP_DIAS 64
[2017-05-25] MEDS: SEVELAMER CARBONATE 0.8 GM POWD.PACK GT SCH ×3 (08:17→17:30)
[2017-05-25] MEDS: LEVETIRACETAM SOL (5 ML) 100 MG/ML UDC GT SCH ×2 (08:17→22:23)
[2017-05-25] MEDS: ASCORBIC ACID 500 MG TABLET GT SCH (08:17)
[2017-05-25] MEDS: LEVOTHYROXINE SODIUM 50 MCG TABLET GT SCH (08:18)
[2017-05-25] MEDS: methylPREDNISolone SOD SUCC 40 MG/ML VIAL IV SCH ×2 (08:18→17:29)
[2017-05-25] MEDS: AMLODIPINE BESYLATE 5 MG TABLET PO SCH (08:19)
[2017-05-25] MEDS: LACTOBACILLUS RHAMNOSUS GG 1 EACH CAP.SPRINK PO SCH ×2 (08:19→17:29)
[2017-05-25] MEDS: VIT B CMPLX 3/FA/VIT C/BIOTIN 1 TAB TABLET GT SCH (08:19)
[2017-05-25] MEDS: PROSOURCE / PROSTAT (PYXIS) 30 ML UDC GT SCH ×2 (08:19→17:30)
[2017-05-25] MEDS: PANTOPRAZOLE 40 MG VIAL IV SCH (08:19)
[2017-05-25 12:00] VITALS: BP 151/75
[2017-05-25] MEDS: DEXTROSE 50%-WATER 50 ML DISP.SYRIN IV PRN (12:41)
[2017-05-25 16:00] VITALS: BP 159/60
[2017-05-25] MEDS: INSULIN REGULAR, HUMAN 100 UNIT/ML 3 ML VIAL SQ PRN (17:37)
[2017-05-25 20:00] VITALS: BP_SYST 174; BP_DIAS 55; BP_DIAS 75
[2017-05-25] MEDS: ATORVASTATIN 40 MG TABLET GT SCH (22:23)
[2017-05-25] MEDS: SENNOSIDES 8.6 MG TABLET GT SCH (22:23)
[2017-05-25] MEDS: LACTULOSE 10 G/15 ML UDC (PYXIS) GT SCH (22:23)
[2017-05-25] MEDS: INSULIN DETEMIR 100 UNIT/ML CARTRIDGE SQ SCH (22:28)
[2017-05-26] VITALS: BP 152/63
[2017-05-26 04:00] VITALS: BP 176/70
[2017-05-26] MEDS: LINAGLIPTIN 5 MG TABLET GT SCH (05:48)
[2017-05-26] MEDS: RENAL NOVASOURCE 1,000 ML BOTTLE GT PRN (05:48)
[2017-05-26] MEDS: BLOOD SUGAR DIAGNOSTIC 1 EACH STRIP IN SCH ×4 (06:11→23:14)
[2017-05-26] MEDS: DEXTROSE 50%-WATER 50 ML DISP.SYRIN IV PRN (06:11)
[2017-05-26 08:00] VITALS: BP 150/61
[2017-05-26] MEDS: PROSOURCE / PROSTAT (PYXIS) 30 ML UDC GT SCH ×2 (09:04→16:40)
[2017-05-26] MEDS: PANTOPRAZOLE 40 MG VIAL IV SCH (09:05)
[2017-05-26] MEDS: LEVETIRACETAM SOL (5 ML) 100 MG/ML UDC GT SCH ×2 (09:05→20:38)
[2017-05-26] MEDS: methylPREDNISolone SOD SUCC 40 MG/ML VIAL IV SCH ×2 (09:05→16:38)
[2017-05-26] MEDS: SEVELAMER CARBONATE 0.8 GM POWD.PACK GT SCH ×3 (09:05→16:38)
[2017-05-26] MEDS: LACTOBACILLUS RHAMNOSUS GG 1 EACH CAP.SPRINK PO SCH ×2 (09:05→16:38)
[2017-05-26] MEDS: AMLODIPINE BESYLATE 5 MG TABLET PO SCH (09:06)
[2017-05-26] MEDS: ASCORBIC ACID 500 MG TABLET GT SCH (09:06)
[2017-05-26] MEDS: VIT B CMPLX 3/FA/VIT C/BIOTIN 1 TAB TABLET GT SCH (09:06)
[2017-05-26] MEDS: LEVOTHYROXINE SODIUM 50 MCG TABLET GT SCH (09:06)
[2017-05-26 12:00] VITALS: BP 145/57
[2017-05-26 16:00] VITALS: BP 128/57
[2017-05-26 20:00] VITALS: BP 148/79
[2017-05-26] MEDS: SENNOSIDES 8.6 MG TABLET GT SCH (21:46)
[2017-05-26] MEDS: ATORVASTATIN 40 MG TABLET GT SCH (21:46)
[2017-05-26] MEDS: LACTULOSE 10 G/15 ML UDC (PYXIS) GT SCH (21:46)
[2017-05-26] MEDS: INSULIN DETEMIR 100 UNIT/ML CARTRIDGE SQ SCH (21:49)
[2017-05-26] MEDS: INSULIN REGULAR, HUMAN 100 UNIT/ML 3 ML VIAL SQ PRN (23:17)
[2017-05-27] VITALS: BP 127/81
[2017-05-27 04:00] VITALS: BP 136/75
[2017-05-27] MEDS: LINAGLIPTIN 5 MG TABLET GT SCH (05:16)
[2017-05-27] MEDS: BLOOD SUGAR DIAGNOSTIC 1 EACH STRIP IN SCH ×3 (05:16→17:02)
[2017-05-27 07:30] LABS: BASOPHILS % (AUTO) 0.2 % (0.0-2.0); EOSINOPHILS # (AUTO) 0.1 /CMM (0.0-0.7); EOSINOPHILS % (AUTO) 1.2 % (0.0-6.0); HEMATOCRIT 24 % (39-51); HEMOGLOBIN 7.9 g/dL (13.5-17.5); LYMPHOCYTES # (AUTO) 0.9 /CMM (0.8-4.8); MEAN CORPUSCULAR HEMOGLOBIN 28 PG (26.0-33.0); MEAN CORPUSCULAR HGB CONC 32 g/dl (31.0-36.0); MEAN CORPUSCULAR VOLUME 87 fL (80-96); MONOCYTES # (AUTO) 0.4 /CMM (0.1-1.30); NEUTROPHILS # (AUTO) 5.7 /CMM (1.8-8.9); NEUTROPHILS % (AUTO) 80.6 % (43.0-81.0); PLATELET COUNT (AUTO) 124 /CMM (150-450); RDW COEFFICIENT OF VARIATION 18.5 (11.5-15.0); RED BLOOD CELL COUNT(AUTO) 2.81 MIL/uL (4.5-6.0); WHITE BLOOD COUNT (AUTO) 7.1 K/uL (4.3-11.0)
[2017-05-27 07:34] LABS: CALCIUM, SERUM 7.5 mg/dL (8.5-10.1); CARBON DIOXIDE 26 mmol/L (21-32); CHLORIDE 96 mmol/L (98-107); CREATININE 4.9 mg/dL (0.6-1.3); GLUCOSE 137 mg/dL (74-106); MAGNESIUM 2.9 mg/dL (1.8-2.4); PHOSPHORUS 4.1 mg/dL (2.5-4.9); POTASSIUM 4.4 mmol/L (3.5-5.1); SODIUM SERUM 133 mmol/L (136-145)
[2017-05-27 07:35] LABS: UREA NITROGEN, BLOOD 114 mg/dL (7-18)
[2017-05-27 08:00] VITALS: BP 167/75
[2017-05-27] MEDS: LEVETIRACETAM SOL (5 ML) 100 MG/ML UDC GT SCH ×2 (08:04→21:52)
[2017-05-27] MEDS: SEVELAMER CARBONATE 0.8 GM POWD.PACK GT SCH ×3 (08:04→16:07)
[2017-05-27] MEDS: LEVOTHYROXINE SODIUM 50 MCG TABLET GT SCH (08:05)
[2017-05-27] MEDS: PANTOPRAZOLE 40 MG VIAL IV SCH (08:05)
[2017-05-27] MEDS: LACTOBACILLUS RHAMNOSUS GG 1 EACH CAP.SPRINK PO SCH ×2 (08:05→16:06)
[2017-05-27] MEDS: VIT B CMPLX 3/FA/VIT C/BIOTIN 1 TAB TABLET GT SCH (08:05)
[2017-05-27] MEDS: AMLODIPINE BESYLATE 5 MG TABLET PO SCH (08:05)
[2017-05-27] MEDS: ASCORBIC ACID 500 MG TABLET GT SCH (08:06)
[2017-05-27] MEDS: methylPREDNISolone SOD SUCC 40 MG/ML VIAL IV SCH ×2 (08:06→16:07)
[2017-05-27] MEDS: PROSOURCE / PROSTAT (PYXIS) 30 ML UDC GT SCH ×2 (08:06→16:06)
[2017-05-27] MEDS: INSULIN REGULAR, HUMAN 100 UNIT/ML 3 ML VIAL SQ PRN ×2 (11:27→17:03)
[2017-05-27 12:00] VITALS: BP 135/67
[2017-05-27 16:00] VITALS: BP 144/72
[2017-05-27 20:00] VITALS: BP 153/76
[2017-05-27] MEDS: LACTULOSE 10 G/15 ML UDC (PYXIS) GT SCH (21:54)
[2017-05-27] MEDS: SENNOSIDES 8.6 MG TABLET GT SCH (21:55)
[2017-05-27] MEDS: ATORVASTATIN 40 MG TABLET GT SCH (21:55)
[2017-05-27] MEDS: INSULIN DETEMIR 100 UNIT/ML CARTRIDGE SQ SCH (22:42)
[2017-05-28] VITALS: BP 141/68
[2017-05-28] MEDS: BLOOD SUGAR DIAGNOSTIC 1 EACH STRIP IN SCH ×4 (00:23→17:03)
[2017-05-28] MEDS: INSULIN REGULAR, HUMAN 100 UNIT/ML 3 ML VIAL SQ PRN ×3 (00:26→17:04)
[2017-05-28 04:00] VITALS: BP 149/68
[2017-05-28] MEDS: RENAL NOVASOURCE 1,000 ML BOTTLE GT PRN (05:51)
[2017-05-28] MEDS: LINAGLIPTIN 5 MG TABLET GT SCH (06:16)
[2017-05-28 08:00] VITALS: BP 130/49
[2017-05-28] MEDS: PANTOPRAZOLE 40 MG VIAL IV SCH (09:03)
[2017-05-28] MEDS: SEVELAMER CARBONATE 0.8 GM POWD.PACK GT SCH ×3 (09:04→16:24)
[2017-05-28] MEDS: LEVETIRACETAM SOL (5 ML) 100 MG/ML UDC GT SCH (09:05)
[2017-05-28] MEDS: AMLODIPINE BESYLATE 5 MG TABLET PO SCH (09:05)
[2017-05-28] MEDS: LACTOBACILLUS RHAMNOSUS GG 1 EACH CAP.SPRINK PO SCH ×2 (09:05→16:24)
[2017-05-28] MEDS: ASCORBIC ACID 500 MG TABLET GT SCH (09:05)
[2017-05-28] MEDS: VIT B CMPLX 3/FA/VIT C/BIOTIN 1 TAB TABLET GT SCH (09:05)
[2017-05-28] MEDS: methylPREDNISolone SOD SUCC 40 MG/ML VIAL IV SCH ×2 (09:05→16:23)
[2017-05-28] MEDS: LEVOTHYROXINE SODIUM 50 MCG TABLET GT SCH (09:13)
[2017-05-28] MEDS: PROSOURCE / PROSTAT (PYXIS) 30 ML UDC GT SCH ×2 (09:14→17:03)
[2017-05-28 12:00] VITALS: BP 143/54
[2017-05-28 16:00] VITALS: BP_SYST 160; BP_DIAS 52; BP_DIAS 58
== END 2017-05-28 18:12 | DRG 870 ==
LOC: ER 12:37 → TRANSITION 12:37 → MED 16:00 → UNDOADMIN 16:00 → TCC 05-04 10:33 → TELE1 05-04 10:55
PROVIDERS: ADMIT Internal Medicine; ATTEND Internal Medicine
PROC: 5A1955Z Respiratory Ventilation, Greater than 96 Consecutive Hours (ICD-10-PCS; principal; 2017-05-04)
PROC: 5A1D70Z Performance of Urinary Filtration, Intermittent, Less than 6 Hours Per Day (ICD-10-PCS; 2017-05-05)
PROC: 5A1D70Z Performance of Urinary Filtration, Intermittent, Less than 6 Hours Per Day (ICD-10-PCS; 2017-05-07)
PROC: 5A1D70Z Performance of Urinary Filtration, Intermittent, Less than 6 Hours Per Day (ICD-10-PCS; 2017-05-08)
PROC: 5A1D70Z Performance of Urinary Filtration, Intermittent, Less than 6 Hours Per Day (ICD-10-PCS; 2017-05-09)
PROC: 5A1D70Z Performance of Urinary Filtration, Intermittent, Less than 6 Hours Per Day (ICD-10-PCS; 2017-05-10)
PROC: 05H533Z Insertion of Infusion Device into Right Subclavian Vein, Percutaneous Approach (ICD-10-PCS; 2017-05-11)
PROC: 0W9B3ZZ Drainage of Left Pleural Cavity, Percutaneous Approach (ICD-10-PCS; 2017-05-11)
PROC: 5A1D70Z Performance of Urinary Filtration, Intermittent, Less than 6 Hours Per Day (ICD-10-PCS; 2017-05-12)
PROC: 5A1D70Z Performance of Urinary Filtration, Intermittent, Less than 6 Hours Per Day (ICD-10-PCS; 2017-05-15)
PROC: 5A1D70Z Performance of Urinary Filtration, Intermittent, Less than 6 Hours Per Day (ICD-10-PCS; 2017-05-17)
PROC: 5A1D70Z Performance of Urinary Filtration, Intermittent, Less than 6 Hours Per Day (ICD-10-PCS; 2017-05-19)
PROC: 5A1D70Z Performance of Urinary Filtration, Intermittent, Less than 6 Hours Per Day (ICD-10-PCS; 2017-05-21)
PROC: 5A1D70Z Performance of Urinary Filtration, Intermittent, Less than 6 Hours Per Day (ICD-10-PCS; 2017-05-23)
PROC: 5A1D70Z Performance of Urinary Filtration, Intermittent, Less than 6 Hours Per Day (ICD-10-PCS; 2017-05-25)
PROC: 5A1D70Z Performance of Urinary Filtration, Intermittent, Less than 6 Hours Per Day (ICD-10-PCS; 2017-05-27)
DX: A41.9 Sepsis, unspecified organism (principal); J96.20 Acute and chronic respiratory failure, unspecified whether with hypoxia or hypercapnia; R65.21 Severe sepsis with septic shock; E43 Unspecified severe protein-calorie malnutrition; J18.9 Pneumonia, unspecified organism; G93.40 Encephalopathy, unspecified; Z99.11 Dependence on respirator [ventilator] status; J90 Pleural effusion, not elsewhere classified; G20 Parkinson's disease; N18.6 End stage renal disease; I12.0 Hypertensive chronic kidney disease with stage 5 chronic kidney disease or end stage renal disease; I31.3 Pericardial effusion (noninflammatory); Z93.0 Tracheostomy status; G40.909 Epilepsy, unspecified, not intractable, without status epilepticus; E78.5 Hyperlipidemia, unspecified; E03.9 Hypothyroidism, unspecified; K21.9 Gastro-esophageal reflux disease without esophagitis; Z93.1 Gastrostomy status; Z99.2 Dependence on renal dialysis; R13.10 Dysphagia, unspecified; Z88.0 Allergy status to penicillin; Z88.8 Allergy status to other drugs, medicaments and biological substances; Z79.4 Long term (current) use of insulin; Z79.899 Other long term (current) drug therapy; D63.8 Anemia in other chronic diseases classified elsewhere; T46.5X5A Adverse effect of other antihypertensive drugs, initial encounter; Y92.129 Unspecified place in nursing home as the place of occurrence of the external cause; M85.9 Disorder of bone density and structure, unspecified; R73.9 Hyperglycemia, unspecified; E86.1 Hypovolemia; L98.9 Disorder of the skin and subcutaneous tissue, unspecified; T38.0X5A Adverse effect of glucocorticoids and synthetic analogues, initial encounter
CPT/HCPCS: 31720; 36415; 36600; 71045-TC; 74018; 76770-TC; 76942-TC; 80048-TC; 80053-TC; 80076-TC; 80202-TC; 82553-TC; 82803-TC; 82962-TC; 83605-TC; 83615-TC; 83735-TC; 84100-TC; 84155-TC; 84484-TC; 85025-TC; 85027-TC; 85385-TC; 85610-TC; 85730-TC; 87040-TC; 87070-TC; 87075-TC; 87081-TC; 87102-TC; 89051-TC; 90935-TC; 93307-TC; 94002-TC; 94003-TC; 94760-TC; 94762-TC; A4216; A4606; A6402; A7526; C9113; J0885; J1815; J1953; J1956; J2270; J2405; J2920; J2930; J3370; J7030; J7040; J7050; J7060; Z7610

== ENCOUNTER 2017-07-09 20:18 | Inpatient (IN) | payer MEDICARE, OTHER ==
[~2017-07-09] VITALS: Ht 167.6 cm; Wt 56.4 kg
[~2017-07-09 20:18] MED LIST changes: -AMLO5TAB4 GT; -CLON0.1T GT; -HYDR-4076 GT; +NUTR100037 GT
--- NOTE | 2017-07-09 20:37 | NUR ---
TO BED 9 [facility] C/O INTERMITTENT FEVER TODAY. PT NONVERBAL, AAOX1, NO ACUTE DISTRESS NOTED, RESP EVEN AND UNLABORED. PLACE PT ON CARDIAC MONITORING, CONTINUOUS POX, RT AT BEDSIDE TO PLACE PT ON VENT. SKIN WARM, NONDIAPHORETIC. ER MD AT BEDSIDE TO EVAL PT WITH ORDERS RECEIVED. WILL CARRY OUT ORDERS.
--- NOTE | 2017-07-09 20:45 | NUR ---
STARTED SL 18G ON THE R HAND, BLOOD DRAWNA ND SENT TO LAB.
[2017-07-09 20:54] LABS: BASOPHILS # (AUTO) 0.1 /CMM (0.0-0.2); BASOPHILS % (AUTO) 0.4 % (0.0-2.0); EOSINOPHILS # (AUTO) 0.6 /CMM (0.0-0.7); EOSINOPHILS % (AUTO) 3.2 % (0.0-6.0); HEMATOCRIT 31 % (39-51); HEMOGLOBIN 10.1 g/dL (13.5-17.5); LYMPHOCYTES # (AUTO) 3.2 /CMM (0.8-4.8); LYMPHOCYTES % (AUTO) 17.9 % (20.0-44.0); MEAN CORPUSCULAR HEMOGLOBIN 28 PG (26.0-33.0); MEAN CORPUSCULAR HGB CONC 32 g/dl (31.0-36.0); MEAN CORPUSCULAR VOLUME 85 fL (80-96); MONOCYTES # (AUTO) 1.5 /CMM (0.1-1.30); MONOCYTES % (AUTO) 8.3 % (2.0-12.0); NEUTROPHILS # (AUTO) 12.5 /CMM (1.8-8.9); NEUTROPHILS % (AUTO) 70.2 % (43.0-81.0); PLATELET COUNT (AUTO) 387 /CMM (150-450); RDW COEFFICIENT OF VARIATION 17.2 (11.5-15.0); RED BLOOD CELL COUNT(AUTO) 3.66 MIL/uL (4.5-6.0); WHITE BLOOD COUNT (AUTO) 17.9 K/uL (4.3-11.0)
[2017-07-09] MEDS ORDERED: VANCOMYCIN 1 GM in IV D5W 250 ML IV ONE (21:00)
[2017-07-09 21:08] LABS: INR 0.98 (0.85-1.15)
[2017-07-09 21:12] LABS: TROPONIN I < 0.017 ng/mL (0.00-0.056)
[2017-07-09] MEDS ORDERED: VANCOMYCIN 1 GM VIAL ONE (21:13)
--- NOTE | 2017-07-09 21:17 | NUR ---
PAGED EPIC FOR PANEL
[2017-07-09 21:24] LABS: CARBON DIOXIDE 19 mmol/L (21-32); CHLORIDE 100 mmol/L (98-107); CREATININE 4.2 mg/dL (0.6-1.3); GLUCOSE 100 mg/dL (74-106); POTASSIUM 3.4 mmol/L (3.5-5.1); SODIUM SERUM 136 mmol/L (136-145); UREA NITROGEN, BLOOD 66 mg/dL (7-18)
[2017-07-09 21:29] LABS: ALANINE AMINOTRANSFERASE 14 U/L (12-78); ALBUMIN 2.2 g/dL (3.4-5.0); ALKALINE PHOSPHATASE 131 U/L (46-116); ASPARTATE AMINOTRANSFERASE 20 U/L (15-37); BILIRUBIN,DIRECT 0.2 mg/dL (0.0-0.2); BILIRUBIN,TOTAL 0.3 mg/dL (0.2-1.0)
--- NOTE | 2017-07-09 21:43 | NUR ---
CALLED NURSE SUP FOR TELE BED
[2017-07-09] MEDS ORDERED: MAGNESIUM HYDROXIDE 30 ML UDC PO PRN (22:00)
[2017-07-09] MEDS ORDERED: HYDROCODONE/APAP 5/325MG 1 EACH TABLET PO PRN (22:00)
[2017-07-09] MEDS ORDERED: ACETAMINOPHEN 325 MG TABLET PO PRN (22:00)
[2017-07-09] MEDS ORDERED: ONDANSETRON HCL/PF 4 MG/2 ML VIAL IVP PRN (22:00)
[2017-07-09] MEDS ORDERED: Z GUARD REMEDY 2 OZ OINT TP PRN (22:00)
[2017-07-09] MEDS ORDERED: MAG HYDROX/AL HYDROX/SIMETH 30 ML UDC PO PRN (22:00)
--- NOTE | 2017-07-09 22:05 | NUR ---
REPORT CALLED TO PIG FARM MANAGERBYRON REYES. WILL TRANSPORT PT VIA ACLS PROTOCOL.
--- NOTE | 2017-07-09 22:17 | NUR ---
AMMUNITION ASSEMBLY I LABORER NOTES PT ARRIVED ON TO THE UNIT VIA GURNEY. PT IS A TRACH/VENT PATIENT. PT IS NONVERBAL. NO APPARENT S/S OF PAIN, DISTRESS OR SOB AT THIS TIME. PT IS A HEMODIALYSIS PT HAVE HAD DIALYSIS EARLIER DURING THE DAY. THE PT WAS BROUGHT IN FROM [facility] FOR FEVERS THROUGHOUT THE DAY. PER ER THE PT HAS NOT HAD A FEVER. ON INITIAL ASSESSMENT PT TEMP IS 98.8. WILL CONTINUE TO MONITOR. PT HAS A RIGHT HAND IV #18, PT ALSO HAS A RIGHT CHEST WALL PORTACATH AND LEFT FOREARM AV SHUNT. PT HAS CONTINUOUS PULSE OXIMETRY. PT IS TELE MONITORED AT SINUS RHYTHM WITH PACS AT A RATE OF 74. SAFETY PRECAUTIONS IN PLACE. BED IN LOW, LOCKED POSITION, X2 SIDE RAILS UP. WILL CONTINUE TO MONITOR.
[2017-07-09 22:30] VITALS: BP 126/64
--- NOTE | 2017-07-09 23:17 | NUR ---
PT RECEIVED FROM TRANSPORT VIA VENT AND PLACED ON SAME SETTINGS. VENT PLUGGED INTO RED OUTLET. AMBU BAG TA BEDSIDE ALARMS SET AND AUDIBLE. DISCONNECT ALARMS CHECKED. TOLERATING VENT SETTINGS. Addendum: 07/09/17 at 2320 by NAVARRO KWOK RT Amended: Links added.
[2017-07-09] MEDS ORDERED: VANCOMYCIN 1 GM in IV D5W 250 ML IV SCH (23:30)
[2017-07-10] VITALS (7 sets, daily range): BP systolic 96–141; BP diastolic 45–72
[2017-07-10] MEDS ORDERED: RENAL NOVASOURCE 1,000 ML BOTTLE GT PRN ×2 (04:30→07:36)
--- NOTE | 2017-07-10 06:35 | NUR ---
RN CLOSING NOTES PT NONVERBAL. OPENS EYES. PT IS A TRACH/VENT DEPENDENT. PT IS NONVERBAL. NO APPARENT S/S OF PAIN, DISTRESS OR SOB OVERNIGHT. PT IS A HEMODIALYSIS PT HAD DIALYSIS EARLIER DURING THE DAY ON 07/09/17. THE PT WAS BROUGHT IN FROM [facility] FOR FEVERS THROUGHOUT THE DAY. NO FEVERS NOTED DURING SHIFT. PT HAS A RIGHT HAND IV #18, PT ALSO HAS A RIGHT CHEST WALL PORT A CATH AND LEFT FOREARM AV SHUNT. PT HAS CONTINUOUS PULSE OXIMETRY. PT IS TELE MONITORED AT SINUS RHYTHM WITH PAC AT A RATE OF 71. PT GTUBE FEEDING IS RUNNING NOVASOURCE AT 40ML/HR, 18 HOURS ON. WILL STOP AT 2300. SAFETY PRECAUTIONS IN PLACE. BED IN LOW, LOCKED POSITION, X2 SIDE RAILS UP. WILL ENDORSE TO DAY SHIFT NURSE FOR CONTINUITY OF CARE.
[2017-07-10 06:56] LABS: BASOPHILS # (AUTO) 0.1 /CMM (0.0-0.2); BASOPHILS % (AUTO) 0.5 % (0.0-2.0); EOSINOPHILS # (AUTO) 0.6 /CMM (0.0-0.7); EOSINOPHILS % (AUTO) 4.6 % (0.0-6.0); HEMATOCRIT 28 % (39-51); HEMOGLOBIN 8.9 g/dL (13.5-17.5); LYMPHOCYTES # (AUTO) 1.5 /CMM (0.8-4.8); LYMPHOCYTES % (AUTO) 12.5 % (20.0-44.0); MEAN CORPUSCULAR HEMOGLOBIN 27 PG (26.0-33.0); MEAN CORPUSCULAR HGB CONC 32 g/dl (31.0-36.0); MEAN CORPUSCULAR VOLUME 85 fL (80-96); MONOCYTES % (AUTO) 8.2 % (2.0-12.0); NEUTROPHILS % (AUTO) 74.2 % (43.0-81.0); PLATELET COUNT (AUTO) 323 /CMM (150-450); RDW COEFFICIENT OF VARIATION 17.8 (11.5-15.0); RED BLOOD CELL COUNT(AUTO) 3.31 MIL/uL (4.5-6.0); WHITE BLOOD COUNT (AUTO) 12.2 K/uL (4.3-11.0)
[2017-07-10 07:18] LABS: CALCIUM, SERUM 10.4 mg/dL (8.5-10.1); CARBON DIOXIDE 18 mmol/L (21-32); CHLORIDE 101 mmol/L (98-107); CREATININE 4.7 mg/dL (0.6-1.3); GLUCOSE 160 mg/dL (74-106); MAGNESIUM 3.4 mg/dL (1.8-2.4); SODIUM SERUM 136 mmol/L (136-145); UREA NITROGEN, BLOOD 73 mg/dL (7-18)
[2017-07-10] MEDS ORDERED: VANCOMYCIN 500 MG in IV D5W 100 ML IV PRN (08:00)
--- NOTE | 2017-07-10 08:00 | NUR ---
HAZARDOUS MATERIAL TECHNICIAN AM NOTES PT NONVERBAL. OPENS EYES. PT IS A TRACH/VENT DEPENDENT. PT IS NONVERBAL. NO APPARENT S/S OF PAIN, DISTRESS OR SOB OVERNIGHT. PT IS A HEMODIALYSIS PT HAD DIALYSIS EARLIER DURING THE DAY ON 07/09/17.NO FEVERS NOTED DURING SCALP TREATMENT SPECIALIST. PT HAS A RIGHT HAND IV #18, PT ALSO HAS A RIGHT CHEST WALL PORT A CATH AND LEFT FOREARM AV SHUNT. PT HAS CONTINUOUS PULSE OXIMETRY. PT IS TELE MONITORED AT SINUS RHYTHM WITH PAC AT A RATE OF 71. PT GTUBE FEEDING IS RUNNING NOVASOURCE AT 40ML/HR, 18 HOURS ON. WILL STOP AT 2300. TOLERATED GT FEEDING WELL.HOB KEPT ELEVATED.SAFETY PRECAUTIONS IN PLACE. BED IN LOW, LOCKED POSITION, X2 SIDE RAILS UP.
[2017-07-10] MEDS ORDERED: FEE PK DOSING 1 MIN EA MC ONE (08:10)
[2017-07-10] MEDS ORDERED: HYDR-4076 GT (08:22)
[2017-07-10] MEDS ORDERED: MIDO5TAB GT (08:22)
[2017-07-10] MEDS ORDERED: AMLO5TAB2 GT (08:22)
--- NOTE | 2017-07-10 10:10 | NUR ---
RT REC'D PT TRACHED INTACT AND SECURED ON [facility] VENT. VENT PLUGGED IN RED OUTLET ALARMS ON AND AUDIBLE. BAG AND MASK AT [facility]. PT SHOWS NO SIGN OF RESP DISTRESS ATT WILL CONTINUE TO MONITOR
[2017-07-10] MEDS: LEVOFLOXACIN 250 MG /D5W 50 ML 250 MG in PREMIX 1 EA IV SCH (11:05)
[2017-07-10] MEDS ORDERED: ALBUMIN 25% 25 GM in PREMIX 1 EA IV ONE (13:00)
--- NOTE | 2017-07-10 13:13 | NUR ---
HEMODIALYSIS PROCEDURE ONGOING BP 103/[address] LYLE SAW THE PT AT THIS TIME WITH NO NEW ORDER.PT HAS NO S/S/ OF PAIN OR DISTRESS.WILL CONTINUE TO MONITOR.FAMILY AT BEDSIDE.
[2017-07-10] MEDS ORDERED: EPOETIN ALFA (10,000 UNIT) 10,000 UNIT/ML VIAL SQ ONE (13:30)
--- NOTE | 2017-07-10 14:42 | NUR ---
UNABLE TO COLLECT URINE PT IS ANURIC AND IS A HEMODIALYSIS PT.
--- NOTE | 2017-07-10 15:00 | NUR ---
HEMODIALYSIS COMPLETED WITH NO OUTPUT.
--- NOTE | 2017-07-10 17:21 | NUR ---
Patient is trach/vent dependent, resides at [facility] [phone]. He is totally dependent with adl's and bedfast. He gets HD @ [facility] [phone] every MWF chair time 5am. Plan to dc back to [facility] once discharge. Addendum: 07/10/17 at 1721 by MARCELO MORALES RN Amended: Links added.
--- NOTE | 2017-07-10 18:00 | NUR ---
NOTIFIED DR RAMOS TO DO THE MED RECONCILIATION OF THE PT 3X.
[2017-07-10] MEDS ORDERED: VANCOMYCIN 1 GM in IV D5W 250 ML IV ONE (19:00)
[2017-07-10] MEDS: RENAL NOVASOURCE 1,000 ML BOTTLE GT PRN (19:09)
--- NOTE | 2017-07-10 19:15 | NUR ---
RN NOTES RECEIVED PT AWAKE, HOB ELEVATED, ON MECHANICAL VENT WITH SETTINGS IN PLACED AND TOLERATED WELL. PT APPEARS COMFORTABLE, NO SIGNS OF DISTRESS AND DISCOMFORT NOTED. TELEMONITOR READS SINUS RHYTHM WITH HEART RATE AT 98. IV ACCESS ON RIGHT HAND PATENT AND INTACT WITH ONGOING VANCOMYCIN INFUSING WELL. RIGHT UPPER CHEST PERMA CATH INTACT WITH DRESSING CLEAN AND DRY. KEPT COMFORTABLE AND ATTENDED. PLAN OF CARE DISCUSSED WITH THE FAMILY AT BEDSIDE. WILL CONTINUE TO MONITOR PT.
[2017-07-10] MEDS: AMLODIPINE BESYLATE 5 MG TABLET GT SCH (21:55)
[2017-07-10] MEDS: MIDODRINE HCL (5MG) 5 MG TABLET GT SCH (21:55)
[2017-07-10] MEDS: ATORVASTATIN 40 MG TABLET GT SCH (21:55)
[2017-07-11] VITALS: BP 95/48
[2017-07-11 04:00] VITALS: BP 120/62
--- NOTE | 2017-07-11 06:24 | NUR ---
RN NOTES PT SLEPT WELL OVERNIGHT, VITAL SIGNS STABLE, AFEBRILE. TELE MONITOR READS SINUS RHYTHM WITH HEART RATE AT 85, WITH SHORT EPISODES OF BRADYCARDIA NOTED. NO SIGNS OF DISTRESS, PAIN AND DISCOMFORT NOTED. SUCTION SECRETIONS NEEDED. KEPT CLEAN AND DRY, SKIN CARE AND WOUND CARE DONE. TURNED AND REPOSITIONED Q2H SCHEDULED. WILL ENDORSE TO MORNING RN FOR CONTINUITY OF CARE.
[2017-07-11 06:55] LABS: BASOPHILS % (AUTO) 0.3 % (0.0-2.0); EOSINOPHILS # (AUTO) 0.4 /CMM (0.0-0.7); EOSINOPHILS % (AUTO) 3.7 % (0.0-6.0); HEMATOCRIT 25 % (39-51); HEMOGLOBIN 7.9 g/dL (13.5-17.5); LYMPHOCYTES # (AUTO) 1.4 /CMM (0.8-4.8); LYMPHOCYTES % (AUTO) 15.2 % (20.0-44.0); MEAN CORPUSCULAR HEMOGLOBIN 27 PG (26.0-33.0); MEAN CORPUSCULAR HGB CONC 32 g/dl (31.0-36.0); MEAN CORPUSCULAR VOLUME 85 fL (80-96); MONOCYTES % (AUTO) 10.7 % (2.0-12.0); NEUTROPHILS # (AUTO) 6.7 /CMM (1.8-8.9); NEUTROPHILS % (AUTO) 70.1 % (43.0-81.0); PLATELET COUNT (AUTO) 289 /CMM (150-450); RDW COEFFICIENT OF VARIATION 18.3 (11.5-15.0); RED BLOOD CELL COUNT(AUTO) 2.91 MIL/uL (4.5-6.0); WHITE BLOOD COUNT (AUTO) 9.5 K/uL (4.3-11.0)
[2017-07-11 07:13] LABS: CALCIUM, SERUM 9.3 mg/dL (8.5-10.1); CARBON DIOXIDE 23 mmol/L (21-32); CHLORIDE 99 mmol/L (98-107); CREATININE 3.9 mg/dL (0.6-1.3); MAGNESIUM 2.9 mg/dL (1.8-2.4); PHOSPHORUS 1.7 mg/dL (2.5-4.9); SODIUM SERUM 137 mmol/L (136-145); UREA NITROGEN, BLOOD 54 mg/dL (7-18)
[2017-07-11 07:46] LABS: GLUCOSE 373 mg/dL (74-106)
[2017-07-11] MEDS ORDERED: RENAL NOVASOURCE 1,000 ML BOTTLE GT PRN (08:00)
--- NOTE | 2017-07-11 08:00 | NUR ---
SUSTAINABLE AGRICULTURE FACULTY AM NOTES PT NONVERBAL. OPENS EYES. PT IS A TRACH/VENT DEPENDENT. PT IS NONVERBAL. NO APPARENT S/S OF PAIN, DISTRESS OR SOB AND FEVER.PT IS A HEMODIALYSIS PT HAD DIALYSIS YESTERDAY WITH NO OUTPUT.NO FEVERS NOTED DURING VOCATIONAL REHABILITATION SUPERVISOR. PT HAS A RIGHT HAND IV #18, PT ALSO HAS A RIGHT CHEST WALL PORT A CATH AND LEFT FOREARM AV SHUNT. PT HAS CONTINUOUS PULSE OXIMETRY. PT IS TELE MONITORED AT SINUS RHYTHM AT A RATE OF 83. PT GTUBE FEEDING IS RUNNING [employer] AT 35 M,L/HR CONTINUOUSLY.TOLERATED GT FEEDING WELL.WITH NO RESIDUALS NOTED.HOB KEPT ELEVATED.SAFETY PRECAUTIONS IN PLACE. BED IN LOW, LOCKED POSITION, X2 SIDE RAILS UP.
[2017-07-11 08:10] VITALS: BP 122/63
[2017-07-11] MEDS ORDERED: Medication Not On Formulary EA (Omega-3 Fatty Acids (Fish Oil) 1,000 MG) GT SCH (09:00)
[2017-07-11] MEDS: PROSOURCE / PROSTAT (PYXIS) 30 ML UDC GT SCH ×2 (09:16→17:28)
[2017-07-11] MEDS: RENAL NOVASOURCE 1,000 ML BOTTLE GT PRN (09:17)
[2017-07-11] MEDS: VIT B CMPLX 3/FA/VIT C/BIOTIN 1 TAB TABLET GT SCH (09:17)
[2017-07-11] MEDS: SEVELAMER CARBONATE 0.8 GM POWD.PACK GT SCH ×3 (09:17→17:28)
[2017-07-11] MEDS: LEVETIRACETAM SOL (5 ML) 100 MG/ML UDC GT SCH ×2 (09:17→21:17)
[2017-07-11] MEDS: MIDODRINE HCL (5MG) 5 MG TABLET GT SCH ×2 (09:18→21:17)
[2017-07-11] MEDS: hydrALAZINE HCL 25 MG TABLET GT SCH ×3 (09:18→17:00)
[2017-07-11] MEDS: AMLODIPINE BESYLATE 5 MG TABLET GT SCH ×2 (09:18→21:30)
[2017-07-11] MEDS: PANTOPRAZOLE 40 MG/PACK PACK GT SCH (09:20)
[2017-07-11] MEDS ORDERED: POTASSIUM CHLORIDE 20 MEQ TAB.PRT.SR PO ONE (10:30)
--- NOTE | 2017-07-11 10:30 | NUR ---
S/P THORACENTESIS PROCEDURE COMPLETED AND PT TOLERATED WELL.WITH STABLE V/S.DR CASTANO WAS ABLE TO OBTAIN 850 ML BROWN PLEURAL FLUID OUT.STAT CXR ORDERED.WILL SEND PLEURAL FLUID TO PATHOLOGY.
--- NOTE | 2017-07-11 10:55 | NUR ---
NO S/S OF SOB OR CHEST PAIN NOTED.WILL CONTINUE TO MONITOR.
[2017-07-11] MEDS ORDERED: DEXTROSE 50%-WATER 50 ML DISP.SYRIN IV PRN (11:00)
[2017-07-11 12:05] LABS: MAGNESIUM 2.9 mg/dL (1.8-2.4)
[2017-07-11] MEDS: BLOOD SUGAR DIAGNOSTIC 1 EACH STRIP IN SCH ×2 (13:32→17:31)
[2017-07-11] MEDS: INSULIN REGULAR, HUMAN 100 UNIT/ML 3 ML VIAL SQ PRN ×2 (13:37→17:31)
[2017-07-11 16:00] VITALS: BP 103/40
[2017-07-11] MEDS ORDERED: Medication Not On Formulary EA (Omeprazole 40 MG) GT SCH (16:30)
[2017-07-11] MEDS: LEVOTHYROXINE SODIUM 50 MCG TABLET GT SCH (17:29)
[2017-07-11] MEDS: LACTOBACILLUS RHAMNOSUS GG 1 EACH CAP.SPRINK GT SCH (17:29)
[2017-07-11] MEDS: HYDROGEL DRESSING 90 GM TUBE TP SCH (18:23)
--- NOTE | 2017-07-11 18:31 | NUR ---
PT RESTING IN BED WITH HOB ELEVATED AT ALL TIMES.TOLERATING GT FEEDING AT 35 ML/HR CONTINUOUSLY.NO RESIDUALS NOTED.ORAL CARE AND WOUND TX DONE ORDERED.TURNED EVERY TWO HOURS.NO SOB OR S/S OF DISTRESS DURING THE SHIFT.WITH MECH VENT.
--- NOTE | 2017-07-11 19:35 | NUR ---
PRODUCT SALES ENGINEER INITIAL NOTE PT IS IN BED RESTING, NON-VERBAL. OPENS-EYES. NO SIGNS OF SOB OR DISTRESS. BREATHING EVENLY AND UNLABORED ON VENT. TOLERATING SETTINGS WELL. TELE MONITOR SHOWS ST 103 WITH FLUTTER. IV ACCESS IS INTACT AND PATENT. G-TUBE FEEDING IS INTACT WITH NOVAsource at 35 ml/hr. WOUND CARE TO BE RENDERED. BED IS IN LOW AND LOCKED POSITION, SIDE RAILS ARE UP. WILL CONTINUE TO MONITOR PT
[2017-07-11 20:00] VITALS: BP 123/65
[2017-07-11] MEDS: ATORVASTATIN 40 MG TABLET GT SCH (21:17)
[2017-07-11] MEDS: LACTULOSE 10 G/15 ML UDC (PYXIS) GT SCH (21:17)
[2017-07-12] VITALS (7 sets, daily range): BP systolic 107–150; BP diastolic 54–70
[2017-07-12] MEDS: BLOOD SUGAR DIAGNOSTIC 1 EACH STRIP IN SCH ×4 (00:14→17:33)
[2017-07-12] MEDS: INSULIN REGULAR, HUMAN 100 UNIT/ML 3 ML VIAL SQ PRN ×4 (00:18→17:34)
[2017-07-12 06:28] LABS: BASOPHILS % (AUTO) 0.5 % (0.0-2.0); EOSINOPHILS # (AUTO) 0.5 /CMM (0.0-0.7); EOSINOPHILS % (AUTO) 4.7 % (0.0-6.0); HEMATOCRIT 24 % (39-51); HEMOGLOBIN 7.8 g/dL (13.5-17.5); LYMPHOCYTES # (AUTO) 1.8 /CMM (0.8-4.8); LYMPHOCYTES % (AUTO) 18.2 % (20.0-44.0); MEAN CORPUSCULAR HEMOGLOBIN 27 PG (26.0-33.0); MEAN CORPUSCULAR HGB CONC 33 g/dl (31.0-36.0); MEAN CORPUSCULAR VOLUME 84 fL (80-96); MONOCYTES % (AUTO) 10.8 % (2.0-12.0); NEUTROPHILS # (AUTO) 6.4 /CMM (1.8-8.9); NEUTROPHILS % (AUTO) 65.8 % (43.0-81.0); PLATELET COUNT (AUTO) 311 /CMM (150-450); RDW COEFFICIENT OF VARIATION 17.7 (11.5-15.0); RED BLOOD CELL COUNT(AUTO) 2.84 MIL/uL (4.5-6.0); WHITE BLOOD COUNT (AUTO) 9.7 K/uL (4.3-11.0)
--- NOTE | 2017-07-12 06:48 | NUR ---
LEACH TANK TENDER CLOSING NOTE PT IS IN BED RESTING. NO SIGNS OF SOB OR DISTRESS. ON VENT TOLERATING SETTINGS WELL. G-TUBE IS INTACT WITH FEEDING RUNNING AT 35 ML/HR. WOUND CARE RENDERED. NO ACUTE CHANGES THROUGHOUT THE SHIFT. BED IS IN LOW AND LOCKED POSITION, CALL LIGHT WITHIN REACH. WILL CONTINUE TO MONITOR PT.
--- NOTE | 2017-07-12 08:00 | NUR ---
SALES SUPERINTENDENT AM NOTES PT IS IN BED RESTING, NON-VERBAL. OPENS-EYES. NO SIGNS OF SOB OR DISTRESS. BREATHING EVENLY AND UNLABORED ON VENT. TOLERATING SETTINGS WELL. TELE MONITOR SHOWS SR 86 WITH FLUTTER. IV ACCESS IS INTACT AND PATENT. G-TUBE FEEDING IS INTACT WITH NOVAsource at 35 ml/hr TOLERATING WELL.HOB ELEVATED. WOUND CARE RENDERED. BED IS IN LOW AND LOCKED POSITION, SIDE RAILS ARE UP. WILL CONTINUE TO MONITOR PT
[2017-07-12] MEDS: hydrALAZINE HCL 25 MG TABLET GT SCH ×3 (09:00→16:48)
--- NOTE | 2017-07-12 09:00 | NUR ---
HELD HYDRALAZINE DUE TO PENDING HEMODIALYSIS
[2017-07-12] MEDS: PROSOURCE / PROSTAT (PYXIS) 30 ML UDC GT SCH ×2 (09:56→17:36)
[2017-07-12] MEDS: LEVOFLOXACIN 250 MG /D5W 50 ML 250 MG in PREMIX 1 EA IV SCH (09:56)
[2017-07-12] MEDS: SEVELAMER CARBONATE 0.8 GM POWD.PACK GT SCH ×3 (09:57→17:31)
[2017-07-12] MEDS: LEVETIRACETAM SOL (5 ML) 100 MG/ML UDC GT SCH ×2 (09:57→21:19)
[2017-07-12] MEDS: MIDODRINE HCL (5MG) 5 MG TABLET GT SCH ×2 (09:57→21:20)
[2017-07-12] MEDS: LACTOBACILLUS RHAMNOSUS GG 1 EACH CAP.SPRINK GT SCH ×2 (09:57→17:31)
[2017-07-12] MEDS: VIT B CMPLX 3/FA/VIT C/BIOTIN 1 TAB TABLET GT SCH (09:57)
[2017-07-12] MEDS: PANTOPRAZOLE 40 MG/PACK PACK GT SCH (09:59)
[2017-07-12] MEDS: HYDROGEL DRESSING 90 GM TUBE TP SCH ×2 (09:59→17:36)
--- NOTE | 2017-07-12 10:30 | NUR ---
NOTIFIED DR PITTS OF PT'S SBP RANGING FROM 75-90 WITH SR,ST, AFIB AND A FLUTTER EPISODES DURING THE NIGHTSHIFT.WITH HR RANGING FROM 40-120 AT TIMES.
[2017-07-12] MEDS ORDERED: EPOETIN ALFA (10,000 UNIT) 10,000 UNIT/ML VIAL IV ONE (11:00)
--- NOTE | 2017-07-12 11:43 | NUR ---
WOUND CARE CONSULT WOUND CARE RECEIVED CONSULT FOR SACRAL WOUNDS. WOUND CARE WILL DEFER CONSULT AND ALL TREATMENT PLANS TO SURGICAL TEAM WHO ARE CURRENTLY FOLLOWING. TREATMENT PLANS NOTED TO BE IN PLACE. PATIENT WITH YAMILETH AT 11, ALL PRESSURE ULCER PREVENTION MEASURES NOTED TO BE IN PLACE AT THIS TIME.
[2017-07-12 12:00] LABS: THYROID STIMULATING HORMONE 2.575 uIU/mL (0.358-3.74)
[2017-07-12] MEDS ORDERED: ALBUMIN 25% 25 GM in PREMIX 1 EA IV ONE (15:30)
--- NOTE | 2017-07-12 16:48 | NUR ---
FAMILY REQUESTS TO HOLD PT'S BP MEDS IF PT'S SBP IS 130 AND BELOW INSPITE OF EXPLAINING ITS RISKS AND BENEFITS.FAMILY INSISTS TO REFUSE.WILL ENDORSE TO NIGHT NURSE.
--- NOTE | 2017-07-12 17:25 | NUR ---
HEMODIALYSIS COMPLETED WITH BP 95/52 HR 88.PT HAS NO S/S OF PAIN OR DISTRESS.NO SOB WITH O2 SAT AT 100% WITH SAME VENT SETTINGS. Addendum: 07/12/17 at 1836 by GAGE LEON RN FAMILY AT BEDSIDE.
[2017-07-12] MEDS ORDERED: ACETAMINOPHEN 650 MG/20.3 ML UDC GT PRN (17:30)
[2017-07-12] MEDS: LEVOTHYROXINE SODIUM 50 MCG TABLET GT SCH (17:31)
[2017-07-12] MEDS: RENAL NOVASOURCE 1,000 ML BOTTLE GT PRN (17:53)
--- NOTE | 2017-07-12 18:36 | NUR ---
DRUM REEL CUTTER CLOSING NOTES PT IS IN BED RESTING, NON-VERBAL. OPENS-EYES. NO SIGNS OF SOB OR DISTRESS. BREATHING EVENLY AND UNLABORED ON VENT. TOLERATING SETTINGS WELL. TELE MONITOR SHOWS SR 70-86. IV ACCESS IS INTACT AND PATENT. G-TUBE FEEDING IS INTACT WITH [employer]OV[employer] at 35 ml/hr TOLERATING WELL.HOB ELEVATED. NO RESIDUALS NOTED.WOUND CARE RENDERED. BED IS IN LOW AND LOCKED POSITION, SIDE RAILS ARE UP. TURNED EVERY TWO HRS.WILL CONTINUE TO MONITOR PT
--- NOTE | 2017-07-12 19:30 | NUR ---
RN NOTES RECEIVED PT AWAKE NON-VERBAL, VENT DEPENDENT, SR ON TELE MONITOR HR-83, G-TUBE FEEDING IN PLACE RUNNING @ 35ML/HR, NOT IN DISTRESS, SIDERAILSUPX2 CONTINUE TO MONITOR
--- NOTE | 2017-07-12 20:50 | NUR ---
RN NOTES PT. WAS MOVED TO ANOTHER ROOM NEAR THE NURSES STATION
[2017-07-12] MEDS: LACTULOSE 10 G/15 ML UDC (PYXIS) GT SCH (21:19)
[2017-07-13] VITALS: BP 137/75
[2017-07-13] MEDS: BLOOD SUGAR DIAGNOSTIC 1 EACH STRIP IN SCH ×3 (00:09→11:57)
[2017-07-13] MEDS: INSULIN REGULAR, HUMAN 100 UNIT/ML 3 ML VIAL SQ PRN ×3 (00:14→11:59)
[2017-07-13 04:00] VITALS: BP 113/63
[2017-07-13] MEDS: HYDROGEL DRESSING 90 GM TUBE TP SCH (05:06)
--- NOTE | 2017-07-13 06:26 | NUR ---
RN NOTES AWAKE, NON-VERBAL, MORNING CARE RENDERED, NOT IN DISTRESS, GTUBE FEEDING IN PLACE, NO RESIDUAL NOTED, SIDERAILSUPX2, PT NEEDS ATTENDED
[2017-07-13 07:26] LABS: BASOPHILS % (AUTO) 0.5 % (0.0-2.0); EOSINOPHILS # (AUTO) 0.5 /CMM (0.0-0.7); EOSINOPHILS % (AUTO) 7.7 % (0.0-6.0); HEMATOCRIT 26 % (39-51); HEMOGLOBIN 8.4 g/dL (13.5-17.5); LYMPHOCYTES % (AUTO) 15.3 % (20.0-44.0); MEAN CORPUSCULAR HEMOGLOBIN 27 PG (26.0-33.0); MEAN CORPUSCULAR HGB CONC 32 g/dl (31.0-36.0); MEAN CORPUSCULAR VOLUME 85 fL (80-96); MONOCYTES # (AUTO) 0.7 /CMM (0.1-1.30); MONOCYTES % (AUTO) 10.1 % (2.0-12.0); NEUTROPHILS # (AUTO) 4.4 /CMM (1.8-8.9); NEUTROPHILS % (AUTO) 66.4 % (43.0-81.0); PLATELET COUNT (AUTO) 334 /CMM (150-450); RDW COEFFICIENT OF VARIATION 18.1 (11.5-15.0); RED BLOOD CELL COUNT(AUTO) 3.13 MIL/uL (4.5-6.0); WHITE BLOOD COUNT (AUTO) 6.7 K/uL (4.3-11.0)
--- NOTE | 2017-07-13 07:30 | NUR ---
FIRE MANAGEMENT SPECIALIST OPENING NOTES. PT RECEIVED EYES OPEN, NON VERBAL. PT POSITIONED CLOSED TO TELE DESK./NURSE STATION FOR SAFETY. TELE:SR. PT VENT AND TRACH DEPENDENT. VENT SETTINGS REVIEWED AND CORRECT, VENT ON RED PLUG. PT SAO2 WNL AND IS WITHOUT S/S OF REPS DISTRESS. PT APPEARS WITHOUT S/S OF DISTRESS OR DISCOMFORT. PT WITH G.TUBE INTACT AND OPERATIONAL WITH N[employer] SOURCE 35ML/PH. ENDORSED FAMILY REQUESTING BP MEDS HELD IF SYSTOLIC 130 OR LOWER, WILL CONFIRM WITH MD. PT BED IN LOWEST LOCKED POSITION WITH HANDRAILSX4 AND CALL BUTTS WITHIN REACH.
[2017-07-13 07:38] LABS: CALCIUM, SERUM 9.5 mg/dL (8.5-10.1); CARBON DIOXIDE 25 mmol/L (21-32); CHLORIDE 93 mmol/L (98-107); CREATININE 3.6 mg/dL (0.6-1.3); GLUCOSE 235 mg/dL (74-106); SODIUM SERUM 133 mmol/L (136-145); UREA NITROGEN, BLOOD 66 mg/dL (7-18)
[2017-07-13 07:39] LABS: POTASSIUM 4.6 mmol/L (3.5-5.1)
[2017-07-13 08:00] VITALS: BP 129/71
[2017-07-13] MEDS: LEVETIRACETAM SOL (5 ML) 100 MG/ML UDC GT SCH (08:15)
[2017-07-13] MEDS: PANTOPRAZOLE 40 MG/PACK PACK GT SCH (08:15)
[2017-07-13] MEDS: VIT B CMPLX 3/FA/VIT C/BIOTIN 1 TAB TABLET GT SCH (08:15)
[2017-07-13] MEDS: SEVELAMER CARBONATE 0.8 GM POWD.PACK GT SCH ×2 (08:15→12:07)
[2017-07-13] MEDS: LACTOBACILLUS RHAMNOSUS GG 1 EACH CAP.SPRINK GT SCH (08:15)
[2017-07-13] MEDS: hydrALAZINE HCL 25 MG TABLET GT SCH ×2 (08:16→12:04)
[2017-07-13] MEDS: MIDODRINE HCL (5MG) 5 MG TABLET GT SCH (08:21)
[2017-07-13] MEDS: PROSOURCE / PROSTAT (PYXIS) 30 ML UDC GT SCH (08:21)
[2017-07-13 12:00] VITALS: BP 126/61
[2017-07-13 12:04] VITALS: BP 126/61
--- NOTE | 2017-07-13 15:30 | NUR ---
THERMOSTAT REPAIRER D/C NOTES. PT PREPARED FOR D/C PER MD. PT EYES OPEN, NON VERBAL. PT DENIES PAIN. PT VENT AND TRACH DEPENDENT WITH RT FOR TRANSPORT. PT WITHOUT S/S OF DISTRESS OR DISCOMFORT. PT WITH G.TUBE FLUSHED AND LOCKED FOR TRANSPORT. IVC REMOVED AND NAD AT SITE. PT WOUND CARE RENDERED PER RX AND PHOTOGRAPHS UPDATED. PT WITHOUT BELONGINGS AND DOCUMENT SIGNED BY RNX2, SOH D/C PACKET PREPARED AND SUPPLIED TO EMT CREW. PT ENDORSED TO [facility] AT [facility]. ALL DAY NURSE DUTIES ATTENDED TO. PT LEFT WITH EMT AND RT TRANSPORT.
[2017-07-14] MEDS ORDERED: LEVOFLOXACIN (250MG) 250 MG TABLET PO SCH (09:00)
== END 2017-07-13 15:29 | DRG 208 ==
LOC: ER 20:19 → TELE 21:57
PROVIDERS: ADMIT Internal Medicine; ATTEND Internal Medicine
PROC: 5A1945Z Respiratory Ventilation, 24-96 Consecutive Hours (ICD-10-PCS; principal; 2017-07-10)
PROC: 0W9B3ZZ Drainage of Left Pleural Cavity, Percutaneous Approach (ICD-10-PCS; 2017-07-11)
DX: J95.851 Ventilator associated pneumonia (principal); J96.21 Acute and chronic respiratory failure with hypoxia; E43 Unspecified severe protein-calorie malnutrition; Z99.11 Dependence on respirator [ventilator] status; G93.40 Encephalopathy, unspecified; L89.153 Pressure ulcer of sacral region, stage 3; R40.3 Persistent vegetative state; J90 Pleural effusion, not elsewhere classified; G20 Parkinson's disease; N18.6 End stage renal disease; G82.20 Paraplegia, unspecified; I12.0 Hypertensive chronic kidney disease with stage 5 chronic kidney disease or end stage renal disease; E11.22 Type 2 diabetes mellitus with diabetic chronic kidney disease; Z93.0 Tracheostomy status; E11.65 Type 2 diabetes mellitus with hyperglycemia; D63.8 Anemia in other chronic diseases classified elsewhere; F02.80 Dementia in other diseases classified elsewhere, unspecified severity, without behavioral disturbance, psychotic disturbance, mood disturbance, and anxiety; G40.909 Epilepsy, unspecified, not intractable, without status epilepticus; Z93.1 Gastrostomy status; Z99.2 Dependence on renal dialysis; Y84.9 Medical procedure, unspecified as the cause of abnormal reaction of the patient, or of later complication, without mention of misadventure at the time of the procedure; Y82.9 Unspecified medical devices associated with adverse incidents; Y92.129 Unspecified place in nursing home as the place of occurrence of the external cause; Z88.0 Allergy status to penicillin; Z88.8 Allergy status to other drugs, medicaments and biological substances; Z79.82 Long term (current) use of aspirin; Z79.899 Other long term (current) drug therapy; E03.9 Hypothyroidism, unspecified; E78.5 Hyperlipidemia, unspecified; E87.6 Hypokalemia; M85.9 Disorder of bone density and structure, unspecified; Z79.84 Long term (current) use of oral hypoglycemic drugs; R13.10 Dysphagia, unspecified; K21.9 Gastro-esophageal reflux disease without esophagitis; E87.70 Fluid overload, unspecified
CPT/HCPCS: 31720; 36415; 71045-TC; 76942-TC; 80048-TC; 80061-TC; 80076-TC; 80202-TC; 82728-TC; 82962-TC; 83540-TC; 83605-TC; 83735-TC; 84100-TC; 84439-TC; 84443-TC; 84484-TC; 85025-TC; 85730-TC; 87040-TC; 87070-TC; 87075-TC; 87081-TC; 87102-TC; 87116; 87206; 88305-TC; 88312-TC; 89051-TC; 90935-TC; 93307-TC; 94002-TC; 94003-TC; 94760-TC; 94762-TC; 99082-TC; A4216; A4606; A6248; A7526; J0885; J1815; J1953; J1956; J3370; J7060; P9047; Z7610

== ENCOUNTER 2017-07-27 08:26 | Emergency (ER) | payer MEDICARE, OTHER ==
[~2017-07-27] VITALS: Ht 167.6 cm; Wt 63.7 kg
[~2017-07-27 08:26] MED LIST changes: -ACET160L33 GT; -ACET160S GT; +AMLO5TAB7 GT; -ASCO500S2 GT; -BLOO-668 IN; +HYDR-4076 GT; +MIDO5TAB GT; -ONDA4TAB5 GT; -SENN-167 GT
--- NOTE | 2017-07-27 08:35 | NUR ---
BBPA FROM [facility]: LOW BP DURING HEMODIALYSIS (2.5/3 HRS). RR IS EVEN AND UNLABORED WITH NAD NOTED. SKIN IS WARM AND DRY. CAME IN WITH VENT WITH THE FOLLOWING SETTINGS: AC=14, IR=884, PEEP=5 FIO2=35%. PLACED ON THE MONITOR. DR MORAN AT FOR EVAL.
[2017-07-27 08:40] VITALS: BP 139/77
--- NOTE | 2017-07-27 08:43 | NUR ---
RT NOTE PT PLACED ON VENT PER MD ORDER. SETTINGS ENDORSED FROM TRANSPORT RT AC 14 500 35% +5. PT HAS PORTEX [address] TRACH MIDLINE AND SECURE. ALARMS SET PER PROTOCOL AND AUDIBLE. VENT PLUGGED IN TO RED OUTLET. AMBU BAG AT BED SIDE. NO DISTRESS NOTED. WILL CONTINUE TO MONITOR. Addendum: 07/27/17 at 0845 by FABIANA ROMERO RT Amended: Links added.
[2017-07-27] MEDS ORDERED: BLOO-668 IN (08:44)
[2017-07-27] MEDS ORDERED: FOLI0.8T2 GT (08:44)
[2017-07-27] MEDS ORDERED: AMIN30LI2 GT (08:44)
[2017-07-27] MEDS ORDERED: IPRA3AMP23 IH ×2 (08:44)
--- NOTE | 2017-07-27 08:55 | NUR ---
XRAY IN PROGRESS AT BS
[2017-07-27 09:01] LABS: BASOPHILS % (AUTO) 0.4 % (0.0-2.0); EOSINOPHILS % (AUTO) 3.9 % (0.0-6.0); HEMATOCRIT 34 % (39-51); HEMOGLOBIN 10.8 g/dL (13.5-17.5); LYMPHOCYTES # (AUTO) 1.2 /CMM (0.8-4.8); LYMPHOCYTES % (AUTO) 18.2 % (20.0-44.0); MEAN CORPUSCULAR HGB CONC 32 g/dl (31.0-36.0); MEAN CORPUSCULAR VOLUME 86 fL (80-96); MONOCYTES # (AUTO) 0.6 /CMM (0.1-1.30); MONOCYTES % (AUTO) 9.4 % (2.0-12.0); NEUTROPHILS # (AUTO) 4.5 /CMM (1.8-8.9); NEUTROPHILS % (AUTO) 68.1 % (43.0-81.0); PLATELET COUNT (AUTO) 288 /CMM (150-450); RDW COEFFICIENT OF VARIATION 20.9 (11.5-15.0); RED BLOOD CELL COUNT(AUTO) 3.98 MIL/uL (4.5-6.0); WHITE BLOOD COUNT (AUTO) 6.7 K/uL (4.3-11.0)
[2017-07-27 09:10] LABS: CALCIUM, SERUM 9.1 mg/dL (8.5-10.1); CARBON DIOXIDE 19 mmol/L (21-32); CHLORIDE 101 mmol/L (98-107); CREATININE 2.6 mg/dL (0.6-1.3); GLUCOSE 166 mg/dL (74-106); POTASSIUM 3.2 mmol/L (3.5-5.1); SODIUM SERUM 135 mmol/L (136-145); UREA NITROGEN, BLOOD 36 mg/dL (7-18)
[2017-07-27 09:19] LABS: TROPONIN I < 0.017 ng/mL (0.00-0.056)
--- NOTE | 2017-07-27 10:01 | NUR ---
CALLED FOR RT TRANSPORT. ETA 45-60 MINUTES
--- NOTE | 2017-07-27 11:15 | NUR ---
Report given to Hoa MATTHEWS for continuity of care at [facility]
--- NOTE | 2017-07-27 11:32 | NUR ---
IV removed. Catheter intact and site benign. Pressure and 4x4 applied to site. No bleeding noted.Patient discharged to [facility] in stable condition. Written and verbal after care instructions given. [facility] verbalized understanding of instruction.
[2017-07-27 11:33] VITALS: BP 156/72
[2017-07-27 12:52] LABS: INR 1.14 (0.87-1.13)
[2017-07-27 12:53] LABS: PARTIAL THROMBOPLASTIN TIME > 170 SEC (23-34)
== END 2017-07-27 11:34 | disposition home or self-care (01) ==
LOC: ER 08:28
DX: I12.0 Hypertensive chronic kidney disease with stage 5 chronic kidney disease or end stage renal disease (principal); N18.6 End stage renal disease; Z99.11 Dependence on respirator [ventilator] status; E03.9 Hypothyroidism, unspecified; E11.22 Type 2 diabetes mellitus with diabetic chronic kidney disease; F03.90 Unspecified dementia, unspecified severity, without behavioral disturbance, psychotic disturbance, mood disturbance, and anxiety; G20 Parkinson's disease; G82.20 Paraplegia, unspecified; I95.3 Hypotension of hemodialysis; K21.9 Gastro-esophageal reflux disease without esophagitis; Z79.4 Long term (current) use of insulin; Z88.0 Allergy status to penicillin; Z99.2 Dependence on renal dialysis; Z88.8 Allergy status to other drugs, medicaments and biological substances
CPT/HCPCS: 36415; 71045-TC; 80048-TC; 84484-TC; 85025-TC; 85730-TC; A4606; Z7610

== ENCOUNTER 2018-01-22 08:47 | Outpatient (CLI) | payer MEDICARE, OTHER ==
[~2018-01-22 08:47] MED LIST changes: +AMIN30LI2 GT; -AMIN887L GT; +BLOO-668 IN; +IPRA3AMP23 IH
[2018-01-22] MEDS ORDERED: CT SWABBABLE VALVE TRANS SET 1 EA INFUS.SET MC ONE (09:12)
[2018-01-22] MEDS ORDERED: IOHEXOL-300 100 ML VIAL IV ONE (09:12)
[2018-01-22] MEDS ORDERED: IV NS 0.9% 250 ML IV ONE (09:12)
== END 2018-01-22 23:59 | disposition home or self-care (01) ==
LOC: CT 08:47
DX: I51.7 Cardiomegaly (principal); J84.10 Pulmonary fibrosis, unspecified; R91.1 Solitary pulmonary nodule; I12.0 Hypertensive chronic kidney disease with stage 5 chronic kidney disease or end stage renal disease; N18.6 End stage renal disease; K21.9 Gastro-esophageal reflux disease without esophagitis; J44.9 Chronic obstructive pulmonary disease, unspecified; E11.9 Type 2 diabetes mellitus without complications; G20 Parkinson's disease
CPT/HCPCS: 71260; J7050; Q9967

== ENCOUNTER 2018-12-16 08:35 | Inpatient (IN) | payer MEDICARE, OTHER ==
[2018-12-16] VITALS (12 sets, daily range): BP systolic 109–177; BP diastolic 52–83
[~2018-12-16] VITALS: Ht 167.6 cm; Wt 74.4 kg
[~2018-12-16 08:35] MED LIST changes: -AMLO5TAB7 GT; +AMLO5TAB9 GT
--- NOTE | 2018-12-16 08:41 | NUR ---
BIB EMS FOR HYPOTENSION S/P DIALYSIS THIS MORNING, HOOKED TO MONITOR, BP 71/[address] ED[address] CANDELARIA AT BEDSIDE, RT AT BEDSIDE, SETTINGS OF VENT VIA TRACH AT AC 14, VT 500, PEEP 0 AND 02 28%.
[2018-12-16] MEDS ORDERED: VANCOMYCIN 1 GM in IV D5W 250 ML IV ONE (09:00)
[2018-12-16] MEDS ORDERED: LEVOFLOXACIN 750 MG /D5W 150ML PIGGYBACK IV ONE (09:00)
[2018-12-16] MEDS ORDERED: IV NS 0.9% 1,000 ML BAG IV ONE (09:00)
[2018-12-16] MEDS ORDERED: LEVOFLOXACIN 750 MG /D5W 150ML 150 ML IV ONE (09:07)
[2018-12-16 09:09] LABS: BASOPHILS # (AUTO) 0.4 /CMM (0.0-0.2); BASOPHILS % (AUTO) 2.5 % (0.0-2.0); EOSINOPHILS % (AUTO) 0.4 % (0.0-6.0); HEMATOCRIT 33 % (39-51); HEMOGLOBIN 10.4 g/dL (13.5-17.5); LYMPHOCYTES # (AUTO) 2.9 /CMM (0.8-4.8); LYMPHOCYTES % (AUTO) 17.2 % (20.0-44.0); MEAN CORPUSCULAR HGB CONC 32 g/dl (31.0-36.0); MEAN CORPUSCULAR VOLUME 100 fL (80-96); MONOCYTES # (AUTO) 1.7 /CMM (0.1-1.30); MONOCYTES % (AUTO) 9.7 % (2.0-12.0); NEUTROPHILS # (AUTO) 11.9 /CMM (1.8-8.9); NEUTROPHILS % (AUTO) 70.2 % (43.0-81.0); PLATELET COUNT (AUTO) 305 /CMM (150-450); RED BLOOD CELL COUNT(AUTO) 3.26 MIL/uL (4.5-6.0)
--- NOTE | 2018-12-16 09:45 | NUR ---
ATTEMPTED TO COLLECT URINE SAMPLE VIA STRAIGHT CATH, CATH NOT ABLE TO BE INSERTED AT URETHRAL ORIFICE. MADE DR CANDELARIA AWARE
[2018-12-16 09:50] LABS: CALCIUM, SERUM 7.7 mg/dL (8.5-10.1); CARBON DIOXIDE 13 mmol/L (21-32); CHLORIDE 97 mmol/L (98-107); GLUCOSE 335 mg/dL (74-106); SODIUM SERUM 133 mmol/L (136-145); UREA NITROGEN, BLOOD 46 mg/dL (7-18)
[2018-12-16 09:56] LABS: ALBUMIN 2.4 g/dL (3.4-5.0); ALKALINE PHOSPHATASE 86 U/L (46-116); BILIRUBIN,DIRECT 0.1 mg/dL (0.0-0.2); BILIRUBIN,TOTAL 0.6 mg/dL (0.2-1.0)
--- NOTE | 2018-12-16 10:06 | NUR ---
REPORT GIVEN TO CHERYL MATTHEWS OF ICU
[2018-12-16 10:15] LABS: TOTAL PROTEIN, SERUM 7.4 g/dL (6.4-8.2)
[2018-12-16 10:30] LABS: ALANINE AMINOTRANSFERASE 40 U/L (12-78); ASPARTATE AMINOTRANSFERASE 46 U/L (15-37)
--- NOTE | 2018-12-16 10:56 | NUR ---
PICC LINE CONSENT SIGNED BY DR CANDELARIA
--- NOTE | 2018-12-16 10:58 | NUR ---
PICC LINE NURSE AT BEDSIDE
--- NOTE | 2018-12-16 11:42 | NUR ---
WHEELED OUT VIA IVANNA CORLEY ATND RT TO ICU .
--- NOTE | 2018-12-16 11:45 | NUR ---
INSPECTOR OF DREDGING ADMITTING NOTES RECEIVED PATIENT FROM ED VIA GURNEY AND ACLS PROTOCOL. A/O X0 OBTUNDED. NO SIGNS OR SYMPTOMS OF RESPIRATORY DISTRESS OR ACUTE PAIN NOTED. PLACED ON VENT AND TOLERATING SETTINGS ORDERED VITAL SIGNS BP 127/52 HR 82 RR 19 SAT 100% . TEMP 100.4 RECTAL. IV TO R HAND # 22 SALINE LOCK MICHELLE PICC TRIPLE LUMEN RUNNING NS @ BOLUS RATE. LAV FISTULA PALPATED FOR THRILL AND AUSCULTATED FOR SWISH. RIGHT CHEST WALL HD CATH SINUS ON MONITOR SACRAL OPEN PHOTOS TAKEN AND WOUND CONSULT ORDERED. BLOOD DRAWN FROM PICC FOR LACTIC ACID. UNABLE TO OBTAIN UA PATIENT HAS STRICTURE. ADMITTING MD PARKER BARRIGA CALL PLACED TO [facility] FOR ORDERS. SAFETY AND ASPIRATION PRECAUTIONS IN PLACE WILL CONT TO MONITOR
--- NOTE | 2018-12-16 11:46 | NUR ---
RT Pt transferred from ER to ICU room 254. Vent is plugged into red outlet. No SOB or respiratory distress noted. Addendum: 12/16/18 at 1148 by ERIKA GUZMAN RT Amended: Links added.
[2018-12-16] MEDS ORDERED: hydrALAZINE HCL 25 MG TABLET GT PRN (13:30)
[2018-12-16] MEDS ORDERED: DEXTROSE 50%-WATER 50 ML DISP.SYRIN IV PRN ×2 (13:30→23:30)
[2018-12-16] MEDS ORDERED: FEE PK DOSING 1 MIN EA MC ONE (13:36)
[2018-12-16] MEDS ORDERED: IV NS 0.9% 1,000 ML IV PRN (14:09)
[2018-12-16] MEDS ORDERED: Z GUARD REMEDY 2 OZ OINT TP PRN (14:30)
[2018-12-16] MEDS ORDERED: IV NS 0.9% 500 ML IV ONE (14:30)
[2018-12-16] MEDS ORDERED: ONDANSETRON HCL/PF 4 MG/2 ML VIAL IVP PRN (14:30)
[2018-12-16] MEDS ORDERED: MORPHINE SULFATE INJ 2 MG/ML DISP.SYRIN IV PRN (14:30)
[2018-12-16] MEDS: HYDROCORTISONE SOD SUCCINATE 100 MG/2 ML VIAL IV SCH ×2 (14:40→17:54)
[2018-12-16] MEDS: FLUDROCORTISONE 0.1 MG TABLET GT SCH (14:40)
[2018-12-16] MEDS: MEROPENEM 500 MG in IV NS 0.9% 50 ML IV SCH ×2 (14:41→21:36)
[2018-12-16] MEDS: ALBUTEROL FS 2.5 MG/0.5 ML VIAL.NEB NEB SCH ×2 (15:10→20:04)
[2018-12-16] MEDS: IPRATROPIUM NEB FS 0.5 MG/2.5 ML AMPUL.NEB NEB SCH ×2 (15:10→20:04)
--- NOTE | 2018-12-16 15:36 | NUR ---
MESSAGE LEFT WITH JUANCHO/ PARKER BARRIGA DNP IN REGARDS TO LACTIC ACID NOW 1.0 B/P 137/59 ORDER FOR 500ML/WIDE OPEN CLARIFY D/T PT RENAL STATUS
--- NOTE | 2018-12-16 16:00 | NUR ---
CALL BACK FROM PARKER BARRIGA D/Harjinder ORDER NS @ 125 ML/HR AND BOLUS OF 500 WIDE OPEN. LACTIC ACID NOW 1.0
[2018-12-16] MEDS: NEPRO 1,000 ML BOTTLE GT PRN (16:38)
[2018-12-16] MEDS: SEVELAMER CARBONATE 0.8 GM POWD.PACK GT SCH (17:54)
[2018-12-16] MEDS: PROSOURCE / PROSTAT (PYXIS) 30 ML UDC GT SCH (17:55)
[2018-12-16] MEDS: BLOOD SUGAR DIAGNOSTIC 1 EACH STRIP IN SCH ×2 (17:55→23:09)
[2018-12-16] MEDS: INSULIN REGULAR, HUMAN 100 UNIT/ML 3 ML VIAL SQ PRN ×2 (17:56→23:06)
--- NOTE | 2018-12-16 18:38 | NUR ---
HYDRALAZINE 25 MG GIVEN GT FOR ELEVATED BP 164/74 HR 79 WILL CONT TO MONITOR
--- NOTE | 2018-12-16 18:57 | NUR ---
ICU CLOSING NOTES NO SIGNIFICANT CHANGES THROUGHOUT SHIFT. NO S/S OF RESPIRATORY DISTRESS OR ACUTE PAIN NOTED. PT REMAINS ANURIC. SINUS ON MONITOR. GTF NEPRO @ 50 NO N/V/D NOTED. REPOSITIONED Q2HR ORAL CARE DONE. SAFETY AND ASPIRATION PRECAUTIONS IN PLACE BED IN LOW LOCKED POSITION WILL ENDORSE TO NOC.
--- NOTE | 2018-12-16 18:57 | NUR ---
BP CHECKED 129/59
[2018-12-16] MEDS ORDERED: BLOOD SUGAR DIAGNOSTIC 1 EACH STRIP IN SCH (21:00)
[2018-12-16] MEDS: MIDODRINE HCL (5MG) 5 MG TABLET GT SCH (21:00)
--- NOTE | 2018-12-16 21:31 | NUR ---
FLOOR LAYER HELPER NOTES PATIENT NOTED WITH DARK, TARRY, FOUL SMELLING STOOL. AILEEN PALEONTOLOGICAL HELPER MADE AWARE, WITH ORDER TO COLLECT STOOL SAMPLE TO SEND FOR TESTING FOR OCCULT BLOOD. PER AILEEN, HE WILL CONSULT WITH GI IN THE MORNING
[2018-12-16] MEDS: LEVETIRACETAM SOL (5 ML) 100 MG/ML UDC GT SCH (21:35)
[2018-12-16] MEDS: LACTULOSE 10 G/15 ML UDC (PYXIS) GT SCH (21:36)
[2018-12-16] MEDS: ATORVASTATIN 40 MG TABLET GT SCH (21:37)
[2018-12-16] MEDS ORDERED: INSULIN GLARGINE, 100 UNIT/ML CARTRIDGE SQ SCH (22:00)
[2018-12-16] MEDS: AMLODIPINE BESYLATE 5 MG TABLET GT SCH (22:02)
--- NOTE | 2018-12-16 23:16 | NUR ---
GOLF CLUB HEAD INSPECTOR NOTES PATIENT'S BLOOD SUGAR = 485 MG/DL. AILEEN SOFTWARE SPECIALIST NOTIFIED REGARDING BS 485. SOFTWARE SPECIALIST WITH NEW ORDER FOR 10 UNITS REGULAR INSULIN X1 ON TOP OF 10 UNITS PER SCALE (20 UNITS TOTAL), AND TO CHANGE FROM MILD TO AGGRESSIVE SLIDING SCALE
[2018-12-16] MEDS ORDERED: INSULIN REGULAR, HUMAN 100 UNIT/ML 3 ML VIAL SQ PRN (23:30)
[2018-12-16] MEDS ORDERED: INSULIN REGULAR, HUMAN 100 UNIT/ML 10 ML VIAL SQ ONE (23:30)
[2018-12-16 23:51] LABS: OCCULT BLOOD STOOL POSITIVE (NEGATIVE)
[2018-12-17] VITALS (22 sets, daily range): BP systolic 95–145; BP diastolic 42–71
[2018-12-17] MEDS: IPRATROPIUM NEB FS 0.5 MG/2.5 ML AMPUL.NEB NEB SCH ×7 (00:22→22:37)
[2018-12-17] MEDS: ALBUTEROL FS 2.5 MG/0.5 ML VIAL.NEB NEB SCH ×7 (00:22→22:37)
[2018-12-17] MEDS ORDERED: DEXTROSE 50%-WATER 50 ML DISP.SYRIN IV PRN (01:30)
[2018-12-17] MEDS: BLOOD SUGAR DIAGNOSTIC 1 EACH STRIP IN SCH ×6 (01:30→21:19)
--- NOTE | 2018-12-17 01:42 | NUR ---
SILVER PLATER NOTES 1 HOUR AFTER 20 UNITS INSULIN ADMINISTERED, BLOOD SUGAR RECHECKED, BS = 507. STAT LAB DRAW FOR BLOOD GLUCOSE ORDERED BY AILEEN HINES TO CONFIRM BLOOD GLUCOSE LEVEL, WHICH IS 524. TUBE FEEDING TURNED OFF. AILEEN RETAIL SERVICE TECHNICIAN NOTIFIED AND MADE AWARE, WITH ORDER TO GIVE 10 UNITS REGULAR INSULIN IV PUSH NOW X1, AND TO CHANGE SSI TO Q4H WITH AGGRESSIVE SLIDING SCALE, TO START @ 0500. ALL ORDERS READ BACK FOR CLARIFICATION. WILL CARRY OUT NEW ORDERS AND CONTINUE TO CLOSELY MONITOR THE PATIENT
[2018-12-17] MEDS ORDERED: INSULIN REGULAR, HUMAN 100 UNIT/ML 10 ML VIAL IV ONE ×2 (02:00→19:00)
[2018-12-17 04:15] LABS: BASOPHILS # (AUTO) 0.2 /CMM (0.0-0.2); BASOPHILS % (AUTO) 1.7 % (0.0-2.0); EOSINOPHILS % (AUTO) 0.2 % (0.0-6.0); HEMATOCRIT 26 % (39-51); HEMOGLOBIN 8.3 g/dL (13.5-17.5); LYMPHOCYTES # (AUTO) 1.8 /CMM (0.8-4.8); LYMPHOCYTES % (AUTO) 13.8 % (20.0-44.0); MEAN CORPUSCULAR HGB CONC 32 g/dl (31.0-36.0); MEAN CORPUSCULAR VOLUME 94 fL (80-96); MONOCYTES % (AUTO) 7.7 % (2.0-12.0); NEUTROPHILS # (AUTO) 9.9 /CMM (1.8-8.9); NEUTROPHILS % (AUTO) 76.6 % (43.0-81.0); PLATELET COUNT (AUTO) 255 /CMM (150-450); RED BLOOD CELL COUNT(AUTO) 2.76 MIL/uL (4.5-6.0); WHITE BLOOD COUNT (AUTO) 12.9 K/uL (4.3-11.0)
[2018-12-17 04:29] LABS: ALBUMIN 2.7 g/dL (3.4-5.0); ALKALINE PHOSPHATASE 106 U/L (46-116); BILIRUBIN,TOTAL 0.4 mg/dL (0.2-1.0); CALCIUM, SERUM 8.9 mg/dL (8.5-10.1); CARBON DIOXIDE 20 mmol/L (21-32); CHLORIDE 96 mmol/L (98-107); CREATININE 4.4 mg/dL (0.6-1.3); GLUCOSE 309 mg/dL (74-106); MAGNESIUM 2.8 mg/dL (1.8-2.4); PHOSPHORUS 2.5 mg/dL (2.5-4.9); POTASSIUM 3.7 mmol/L (3.5-5.1); SODIUM SERUM 132 mmol/L (136-145); TOTAL PROTEIN, SERUM 8.2 g/dL (6.4-8.2)
[2018-12-17 04:45] LABS: ALANINE AMINOTRANSFERASE 40 U/L (12-78); ASPARTATE AMINOTRANSFERASE 40 U/L (15-37)
[2018-12-17 04:47] LABS: UREA NITROGEN, BLOOD 82 mg/dL (7-18)
[2018-12-17] MEDS: INSULIN REGULAR, HUMAN 100 UNIT/ML 3 ML VIAL SQ PRN ×4 (04:58→21:29)
[2018-12-17 05:07] LABS: IRON, SERUM 73 ug/dl (50-175); TOTAL IRON BINDING CAPACITY 158 ug/dl (250-450)
[2018-12-17 05:16] LABS: CHOLESTEROL 264 mg/dL (<200); HDL CHOLESTEROL 32 mg/dL (40-60); LDL 53 mg/dL (0-99); TRIGLYCERIDES 1865 mg/dL (30-150)
[2018-12-17] MEDS ORDERED: BLOOD SUGAR DIAGNOSTIC 1 EACH STRIP IN SCH (06:00)
--- NOTE | 2018-12-17 06:30 | NUR ---
B2B SALES REPRESENTATIVE NOTES PATIENT RESTING IN BED, APPEARS COMFORTABLE. TUBE FEEDING REMAINS OFF SINCE MIDNIGHT DUE TO PERSISTENTLY ELEVATED BLOOD SUGAR. BLOOD SUGAR NOW TRENDING DOWN TO 300s. PATIENT CONTINUES ON MECHANICA VENTILATION VIA TRACH, TOLERATED SETTINGS WELL THROUGHOUT THE SHIFT, SIGNIFICANT RESPIRATORY DISTRESS NOTED
--- NOTE | 2018-12-17 07:10 | NUR ---
RN INITIAL NOTES RECEIVED PT OBTUNDED. TRACH IN PLACE. ON VENT. NO RESPIRATORY DISTRESS NOTED. NO SOB NOTED. NO SIGNS OF PAIN NOTED. HOB ELEVATED. MICHELLE PICC IN PLACE. RIGHT CHESTWALL HD CATH IN PLACE. GT IN PLACE. NO RESIDUAL NOTED. PT ANURIC. PT REPOSITIONED. BLE ELEVATED. WILL MONITOR.
[2018-12-17 08:14] LABS: ABG BASE EXCESS -4.8 mmol/L; ABG OXYGEN SATURATION 96.6 % (92.0-98.5); ABG PCO2 31.1 mmHg (35.0-45.0); ABG PH 7.408 (7.350-7.450); ABG PO2 92.5 mmHg (75.0-100.0); AaDO2 70.4 mmHg; COHb 0.7 % (0.5-1.5); MetHb 0.6 % (0.0-1.5); O2Hb 95.3 % (94.0-97.0); SITE, ABG Right Radial; VT, ABG 500 mL
[2018-12-17] MEDS: FLUDROCORTISONE 0.1 MG TABLET GT SCH (08:21)
[2018-12-17] MEDS: LEVOTHYROXINE SODIUM 50 MCG TABLET GT SCH (08:21)
[2018-12-17] MEDS: MIDODRINE HCL (5MG) 5 MG TABLET GT SCH ×2 (08:21→21:41)
[2018-12-17] MEDS: MEROPENEM 500 MG in IV NS 0.9% 50 ML IV SCH ×2 (08:21→21:17)
[2018-12-17] MEDS: AMLODIPINE BESYLATE 5 MG TABLET GT SCH ×2 (08:21→21:00)
[2018-12-17] MEDS: SEVELAMER CARBONATE 0.8 GM POWD.PACK GT SCH ×3 (08:21→17:09)
[2018-12-17] MEDS: PANTOPRAZOLE 40 MG/PACK PACK GT SCH (08:21)
[2018-12-17] MEDS: LEVETIRACETAM SOL (5 ML) 100 MG/ML UDC GT SCH ×2 (08:21→21:16)
[2018-12-17] MEDS: HYDROCORTISONE SOD SUCCINATE 100 MG/2 ML VIAL IV SCH ×3 (08:21→17:09)
[2018-12-17] MEDS: VIT B CMPLX 3/FA/VIT C/BIOTIN 1 TAB TABLET GT SCH (08:22)
[2018-12-17] MEDS: MINOXIDIL (2.5MG) 2.5 MG TABLET GT SCH (08:22)
[2018-12-17] MEDS: PROSOURCE / PROSTAT (PYXIS) 30 ML UDC GT SCH ×2 (08:35→17:13)
[2018-12-17] MEDS ORDERED: MINOXIDIL (10MG) 10 MG TABLET GT SCH (09:00)
--- NOTE | 2018-12-17 09:00 | NUR ---
RN NOTES 0830 SEEN AND EXAMINED BY DR BRASHER. AWARE OF LATEST LAB VALUES AND CXR RESULT. GTF ON HOLD. BLOOD SUGAR READING >400S. ACCHUCHECK Q4 AND ON AGGRESSIVE SLIDING SCALE. VS WNL. PT OK TO DOWNGRADE TO SUE. 0900 SEEN AND EXAMINED BY DR HERRERA. PT VENT/TRACH PT. NO RESPIRATORY DISTRESS NOTED. NO SOB NOTED. NO SIGNS OF PAIN NOTED. AWARE OF ABG RESULT NO ORDER MADE. WILL MONITOR
[2018-12-17] MEDS: NEPRO 1,000 ML BOTTLE GT PRN (13:15)
--- NOTE | 2018-12-17 13:47 | NUR ---
RN NOTES REPORT RECEIVED FROM OTONIEL MATTHEWS FOR CONTINUITY OF CARE . PT IS TOLERATING VENT SETTING WELL, TRACH CARE DONE, ON TELE SR ,SUPPORTIVE FAMILY AT THE BEDSIDE, NEPRO A 50CC/HR RUNNING , NO RESIDUAL NOTED, SR UP x3, CALL LIGHT WITHIN EASY REACH, CONTINUE TO MONITOR .
[2018-12-17] MEDS: ACETAMINOPHEN 650 MG/SUPP.RECT RC PRN (15:35)
--- NOTE | 2018-12-17 17:05 | NUR ---
RN NOTES DR BRASHER NOTIFED REGARDING HIGH BLOOD GLUCOSE , SLIDING SCALE COVERAGE GIVEN , REPEAT BLOOD GLUCOSE IN ONE HOUR PER MD ORDER , NO SIGN AND SYMPTOMS OF HYPERGLYCEMIA NOTED , CONTINUE TO MONITOR .
[2018-12-17] MEDS: LACTOBACILLUS RHAMNOSUS GG 1 EACH CAP.SPRINK GT SCH (17:09)
--- NOTE | 2018-12-17 18:05 | NUR ---
RN NOTE RECEIVED REPORT FROM SIL POSTDOCTORAL RESEARCH FELLOW.
--- NOTE | 2018-12-17 18:20 | NUR ---
RN NOTES BG =[phone], DR MIRANDA PAGED.
[2018-12-17] MEDS: HYDROGEL DRESSING 90 GM TUBE TP SCH (18:34)
--- NOTE | 2018-12-17 18:45 | NUR ---
RN NOTES ORDER RECEIVED FOR EXTRA 20 UNITS OF INSULIN x1 , PER DR BRASHER ORDER .
--- NOTE | 2018-12-17 19:00 | NUR ---
RN NOTES OK TO TRANSFER PT TO SUE STATUS , PER DR BRASHER .
--- NOTE | 2018-12-17 19:10 | NUR ---
RN NOTES PT TRANSFERRED TO ROOM 111-1 SUE STATUS VIA ACLS PROTOCOL PER DR PURI ORDER . REPORT GIVEN TO JADYN MATTHEWS FOR CONTINUITY OF CARE.
--- NOTE | 2018-12-17 19:15 | NUR ---
SUE RN NOTE RECEIVED PT FROM ICU WITH ACLS PROTOCOL. PT IS NON VERBAL, ON VENT/TRACH PORTEX 7 AC 14 TV 500 FIO2 28% PEEP 0, NO DISTRESS OR DISCOMFORT NOTED. NO S/S OF PAIN NOTED. GTF NEPRO INFUSING AT 50 ML/HR, 0 ML RESIDUAL NOTED. KEPT HOB ELEVATED. MICHELLE WITH TRIPLE LUMEN CATH, INTACT AND PATENT. TOMMY WITH NEW AV FISTULA. RCW WITH HD CATH WITH DRESSING ON. ON TELE SR HR 87. NO S/S OF HYPO OR HYPERGLYCEMIA NOTED. PT HAS HIGH BS IN DAY SHIFT, CONTINUE TO CHECK SCHEDULE. FAMILY AT BED SIDE. REPOSITION HIM FOR SKIN MANAGEMENT. DRESSING ON SACRAL I/C/D. SIDE RAILS UP X 3 AND CALL LIGHT WITHIN REACH. VSS. CONTINUE TO MONITOR HIM.
[2018-12-17] MEDS: LACTULOSE 10 G/15 ML UDC (PYXIS) GT SCH (21:16)
[2018-12-17] MEDS: ATORVASTATIN 40 MG TABLET GT SCH (21:16)
[2018-12-17] MEDS: INSULIN GLARGINE, 100 UNIT/ML CARTRIDGE SQ SCH (21:30)
[2018-12-18] VITALS: BP 114/44
[2018-12-18] MEDS: BLOOD SUGAR DIAGNOSTIC 1 EACH STRIP IN SCH ×6 (01:15→20:57)
[2018-12-18] MEDS: INSULIN REGULAR, HUMAN 100 UNIT/ML 3 ML VIAL SQ PRN ×6 (01:18→21:00)
[2018-12-18] MEDS: ALBUTEROL FS 2.5 MG/0.5 ML VIAL.NEB NEB SCH ×6 (02:52→23:30)
[2018-12-18] MEDS: IPRATROPIUM NEB FS 0.5 MG/2.5 ML AMPUL.NEB NEB SCH ×6 (02:52→23:29)
[2018-12-18 04:00] VITALS: BP 121/46
--- NOTE | 2018-12-18 06:26 | NUR ---
SUE RN NOTE PT IN BED WITH EYES OPEN, TOLERATING VENT SETTINGS WELL, SUCTIONED HIM NEEDED. GTF INFUSING WELL, 0 ML RESIDUAL NOTED. ON TELE SR HR 82. KEPT HIM DRY AND CLEAN. ALL NEEDS ATTENDED. REPOSITION HIM Q2H, WILL ENDORSE TO DAY SHIFT NURSE FOR CONTINUE TO CARE.
[2018-12-18 07:20] LABS: BASOPHILS # (AUTO) 0.4 /CMM (0.0-0.2); BASOPHILS % (AUTO) 3.5 % (0.0-2.0); EOSINOPHILS % (AUTO) 0.8 % (0.0-6.0); HEMATOCRIT 26 % (39-51); HEMOGLOBIN 8.4 g/dL (13.5-17.5); LYMPHOCYTES # (AUTO) 2.5 /CMM (0.8-4.8); LYMPHOCYTES % (AUTO) 24.1 % (20.0-44.0); MEAN CORPUSCULAR HGB CONC 32 g/dl (31.0-36.0); MEAN CORPUSCULAR VOLUME 94 fL (80-96); MONOCYTES # (AUTO) 0.8 /CMM (0.1-1.30); NEUTROPHILS # (AUTO) 6.6 /CMM (1.8-8.9); NEUTROPHILS % (AUTO) 63.6 % (43.0-81.0); PLATELET COUNT (AUTO) 245 /CMM (150-450); RED BLOOD CELL COUNT(AUTO) 2.81 MIL/uL (4.5-6.0); WHITE BLOOD COUNT (AUTO) 10.4 K/uL (4.3-11.0)
--- NOTE | 2018-12-18 07:35 | NUR ---
RN NOTE: RECEIVED PATIENT IN BED, SPONTANEOUSLY OPEN HIS EYES AND NONVERBAL. ON CHRONIC VENT-TRACH DEPENDENT SATURATING 100% WITH CURRENT VENT SETTING. NO FACIAL GRIMACING NOTED. (R) UPPER ARM PICC LINE TRIPLE LUMEN NOTED INTACT WITH TRANSPARENT DRESSING. (R) CHEST WALL HD CATH WAS NOTED INTACT WITH DRY DRESSING. (L) UPPER ARM AV SHUNT NOTED WITH PRESENCE OF BRUIT AND THRILL WITH DRY DRESSING. HOB ELEVATED. ON GT FEEDING OF NEPHRO @50ML/HR AND NO RESIDUAL NOTED. BED ALARMED AND LOCKED AT ALL TIMES. ON [employer] 1ST STEP MATTRESS FOR WOUND MANAGEMENT. PATIENT ON HD FOR TODAY. CALL LIGHT WITHIN REACH. NEEDS ANTICIPATED.
[2018-12-18 08:00] VITALS: BP 110/59
[2018-12-18 08:01] LABS: CALCIUM, SERUM 9.2 mg/dL (8.5-10.1); CARBON DIOXIDE 15 mmol/L (21-32); CHLORIDE 94 mmol/L (98-107); CREATININE 5.6 mg/dL (0.6-1.3); GLUCOSE 204 mg/dL (74-106); MAGNESIUM 3.1 mg/dL (1.8-2.4); PHOSPHORUS 4.5 mg/dL (2.5-4.9); POTASSIUM 4.4 mmol/L (3.5-5.1); SODIUM SERUM 131 mmol/L (136-145)
[2018-12-18 08:11] LABS: UREA NITROGEN, BLOOD 113 mg/dL (7-18)
[2018-12-18 08:34] LABS: BAND % (MANUAL) 3 % (0.0-5.0); LYMPHOCYTES % (MANUAL) 22 % (16-48); METAMYELOCYTES % 3 % (0-0); MONOCYTES % (MANUAL) 5 % (0-11.0); NEUTROPHILS % (MANUAL) 67 (42-76)
--- NOTE | 2018-12-18 09:00 | NUR ---
RN NOTE: HEMODIALYSIS CONSENT WAS RECEIVED FROM GAGE ROMERO, . VERIFIED WITH ANOTHER NURSE, CHEY HUERTA RN. INFORMED CONSENT SIGNED AND FILED AT THE PATIENT'S CHART.
[2018-12-18] MEDS: MEROPENEM 500 MG in IV NS 0.9% 50 ML IV SCH ×2 (09:19→20:27)
[2018-12-18] MEDS: LACTOBACILLUS RHAMNOSUS GG 1 EACH CAP.SPRINK GT SCH ×2 (09:20→16:51)
[2018-12-18] MEDS: LEVETIRACETAM SOL (5 ML) 100 MG/ML UDC GT SCH ×2 (09:20→20:26)
[2018-12-18] MEDS: FLUDROCORTISONE 0.1 MG TABLET GT SCH (09:20)
[2018-12-18] MEDS: MIDODRINE HCL (5MG) 5 MG TABLET GT SCH ×2 (09:21→21:22)
[2018-12-18] MEDS: PANTOPRAZOLE 40 MG/PACK PACK GT SCH (09:21)
[2018-12-18] MEDS: VIT B CMPLX 3/FA/VIT C/BIOTIN 1 TAB TABLET GT SCH (09:21)
[2018-12-18] MEDS: AMLODIPINE BESYLATE 5 MG TABLET GT SCH ×2 (09:22→20:27)
[2018-12-18] MEDS: HYDROCORTISONE SOD SUCCINATE 100 MG/2 ML VIAL IV SCH ×3 (09:22→16:52)
[2018-12-18] MEDS: MINOXIDIL (2.5MG) 2.5 MG TABLET GT SCH (09:22)
[2018-12-18] MEDS: SEVELAMER CARBONATE 0.8 GM POWD.PACK GT SCH ×3 (09:22→16:52)
[2018-12-18] MEDS: LEVOTHYROXINE SODIUM 50 MCG TABLET GT SCH (09:22)
[2018-12-18] MEDS: PROSOURCE / PROSTAT (PYXIS) 30 ML UDC GT SCH ×2 (09:23→16:51)
[2018-12-18] MEDS: HYDROGEL DRESSING 90 GM TUBE TP SCH (09:40)
[2018-12-18 12:00] VITALS: BP 113/58
--- NOTE | 2018-12-18 12:13 | NUR ---
WOUND CARE CONSULT WOUND CARE RECEIVED CONSULT FOR SACRAL WOUND. WOUND CARE WILL DEFER CONSULT AND TREATMENT PLANS TO PLASTIC SURGICAL TEAM WHO ARE CURRENTLY FOLLOWING THIS PATIENT. PATIENT WITH YAMILETH AT 9, ALL PRESSURE ULCER PREVENTION MEASURES ARE NOTED TO BE IN PLACE. WILL SEE PRN.
--- NOTE | 2018-12-18 14:22 | NUR ---
RN NOTE: RECEIVED A PHONE CALL FROM LANDON LR AND ACCORDING TO HER, SHE RECOMMENDED A TUBE FEEDING NEPHRO @45ML/HR X [address] BRASHER MADE AWARE AND AGREED. ORDER NOTED AND CARRIED OUT.
[2018-12-18] MEDS: NEPRO 1,000 ML BOTTLE GT PRN (14:33)
[2018-12-18 16:00] VITALS: BP 97/52
[2018-12-18] MEDS: VANCOMYCIN 500 MG in IV D5W 100 ML IV PRN (16:43)
--- NOTE | 2018-12-18 18:52 | NUR ---
RN NOTE: RECEIVED A CALL BACK FROM DR. RASHID (GI) AND INFORMED HIM ABOUT THE REASON FOR CONSULTATION. MD WAS INFORMED THAT PATIENT HAD A + OCCULT BLOOD STOOL AND HAS A HX OF GERD. PER MD, HE WILL COME BY TOMORROW MORNING TO SEE THE PATIENT. MD WITH NO NEW ORDER AT THIS TIME.
--- NOTE | 2018-12-18 19:45 | NUR ---
RN NOTE: BEDSIDE REPORT WAS GIVEN TO PM SHIFT NURSE FOR CONTINUITY OF CARE. PATIENT HAD HD TODAY AND HD NURSE REMOVED 1.2L OF FLUID. BLOOD CULTURE X 2 WAS DRAWN TODAY AT THE ROWENA CATHETER BY THE HD NURSE AND WAS SENT TO LAB PER MD ORDER. PATIENT ON STABLE CONDITION.
[2018-12-18 20:00] VITALS: BP 143/60
--- NOTE | 2018-12-18 20:00 | NUR ---
telemetry monitor notes received pts awake alert and agitated , with 1:1 sitter at bedside . on tele - sr and ist degree block on the monitor. no sob no distress noted . breathing even and unlabored on r/a sating 94%, v/s stable afebrile , all due meds given as ordered , all needs attended too call light within reach kept pts clean dry and comfortable, will continue to monitor pts . son at bedside updated with pts condition. Addendum: 12/18/18 at 2251 by ADAMS MURPHY RN clarification , nursing notes not intended to this pts.
--- NOTE | 2018-12-18 20:00 | NUR ---
telegraph editor notes received pts in bed remains on ventilator dependent with eyes open,no sob no distress noted breathing even and unlabored , v/s stable afebrile pts sating 98% All needs attended too call light with in reach ,hob elevated at all times for aspiration precaution ,pts on picc line on r ua intact and patent ,with zackery av shunt with positive bruitt and thrill.with gt feeding nephro at 45cc/hr well tolerated ,no residual noted.pts with right chest catheter hd access.dry and no bleeding noted. suction secretion done and prn breathing tx given by rt, turn and reposition q 2 hrs and prn. kept pts comfortable and dry, will continue to monitor.
[2018-12-18] MEDS: INSULIN GLARGINE, 100 UNIT/ML CARTRIDGE SQ SCH (21:03)
[2018-12-18] MEDS: ATORVASTATIN 40 MG TABLET GT SCH (21:22)
[2018-12-18] MEDS: LACTULOSE 10 G/15 ML UDC (PYXIS) GT SCH (21:23)
--- NOTE | 2018-12-18 21:30 | NUR ---
television station manager notes blood sugar of 344mg/dl 16 units of regular insulin per sliding scale and lantus 20 units given as ordered will check blood sugar again in 4hrs.
[2018-12-19] VITALS: BP 126/51
--- NOTE | 2018-12-19 01:30 | NUR ---
LOZENGE MAKER NOTES BLOOD SUGAR FOR 1AM IS 263 MG /DL 12 UNITS OF REGULAR INSULIN GIVEN PER SLIDING SCALE.
[2018-12-19] MEDS: INSULIN REGULAR, HUMAN 100 UNIT/ML 3 ML VIAL SQ PRN ×6 (01:43→20:57)
[2018-12-19] MEDS: BLOOD SUGAR DIAGNOSTIC 1 EACH STRIP IN SCH ×6 (01:46→21:01)
[2018-12-19] MEDS: ALBUTEROL FS 2.5 MG/0.5 ML VIAL.NEB NEB SCH ×6 (03:29→23:41)
[2018-12-19] MEDS: IPRATROPIUM NEB FS 0.5 MG/2.5 ML AMPUL.NEB NEB SCH ×6 (03:29→23:41)
[2018-12-19 04:00] VITALS: BP 122/55
[2018-12-19 06:22] LABS: BASOPHILS % (AUTO) 0.4 % (0.0-2.0); EOSINOPHILS % (AUTO) 0.4 % (0.0-6.0); HEMATOCRIT 25 % (39-51); LYMPHOCYTES # (AUTO) 2.3 /CMM (0.8-4.8); LYMPHOCYTES % (AUTO) 26.5 % (20.0-44.0); MEAN CORPUSCULAR HGB CONC 32 g/dl (31.0-36.0); MEAN CORPUSCULAR VOLUME 93 fL (80-96); MONOCYTES # (AUTO) 0.7 /CMM (0.1-1.30); MONOCYTES % (AUTO) 8.1 % (2.0-12.0); NEUTROPHILS # (AUTO) 5.5 /CMM (1.8-8.9); NEUTROPHILS % (AUTO) 64.6 % (43.0-81.0); PLATELET COUNT (AUTO) 235 /CMM (150-450); RED BLOOD CELL COUNT(AUTO) 2.68 MIL/uL (4.5-6.0); WHITE BLOOD COUNT (AUTO) 8.6 K/uL (4.3-11.0)
--- NOTE | 2018-12-19 06:30 | NUR ---
ORDERING MACHINE OPERATOR NOTES RECEIVED PTS IN BED REMAINS ON VENTILATOR DEPENDENT , NO SOB NO DISTRESS NOTED , BLOOD SUGAR AT 5AM IS 194 4 UNITS OF REGULAR INSULIN GIVEN PER SLIDING SCALE. WILL ENDORSE TO RN DAY SHIFT FOR CONTINUITY OF SHIFT.
[2018-12-19 06:41] LABS: CALCIUM, SERUM 8.7 mg/dL (8.5-10.1); CARBON DIOXIDE 24 mmol/L (21-32); CHLORIDE 98 mmol/L (98-107); CREATININE 3.5 mg/dL (0.6-1.3); GLUCOSE 203 mg/dL (74-106); MAGNESIUM 2.7 mg/dL (1.8-2.4); PHOSPHORUS 3.1 mg/dL (2.5-4.9); POTASSIUM 3.1 mmol/L (3.5-5.1); SODIUM SERUM 137 mmol/L (136-145); UREA NITROGEN, BLOOD 66 mg/dL (7-18)
[2018-12-19 07:42] LABS: BAND % (MANUAL) 1 % (0.0-5.0); EOSINOPHILS % (MANUAL) 1 % (0-4); LYMPHOCYTES % (MANUAL) 22 % (16-48); METAMYELOCYTES % 2 % (0-0); MONOCYTES % (MANUAL) 8 % (0-11.0); NEUTROPHILS % (MANUAL) 66 (42-76)
[2018-12-19 08:00] VITALS: BP 120/55
--- NOTE | 2018-12-19 08:00 | NUR ---
telegraph repeater mechanic notes received pts in bed remains on ventilator dependent with eyes open,no sob no distress noted breathing even and unlabored , v/s stable afebrile All needs attended too call light with in reach ,hob elevated at all times for aspiration precaution ,pts on picc line on r ua intact and patent ,with zackeyr av shunt with positive bruit and thrill.with gt feeding nephro at 45cc/hr well tolerated ,no residual noted.pts with right chest catheter hd access.dry and no bleeding noted. suction secretion done and prn bed in lowest and locked position kept pts comfortable and dry, will continue to monitor, call light within reach., reported to dr Sabas cevallos 3.1 stated that will check it
[2018-12-19] MEDS: MEROPENEM 500 MG in IV NS 0.9% 50 ML IV SCH ×2 (08:31→20:20)
[2018-12-19] MEDS: LEVETIRACETAM SOL (5 ML) 100 MG/ML UDC GT SCH ×2 (08:31→20:43)
[2018-12-19] MEDS: LACTOBACILLUS RHAMNOSUS GG 1 EACH CAP.SPRINK GT SCH ×2 (08:32→16:19)
[2018-12-19] MEDS: HYDROCORTISONE SOD SUCCINATE 100 MG/2 ML VIAL IV SCH ×3 (08:32→16:18)
[2018-12-19] MEDS: SEVELAMER CARBONATE 0.8 GM POWD.PACK GT SCH ×3 (08:32→16:18)
[2018-12-19] MEDS: PANTOPRAZOLE 40 MG/PACK PACK GT SCH (08:33)
[2018-12-19] MEDS: FLUDROCORTISONE 0.1 MG TABLET GT SCH (08:33)
[2018-12-19] MEDS: MIDODRINE HCL (5MG) 5 MG TABLET GT SCH ×2 (08:33→20:44)
[2018-12-19] MEDS: PROSOURCE / PROSTAT (PYXIS) 30 ML UDC GT SCH ×2 (08:33→16:18)
[2018-12-19] MEDS: VIT B CMPLX 3/FA/VIT C/BIOTIN 1 TAB TABLET GT SCH (08:33)
[2018-12-19] MEDS: LEVOTHYROXINE SODIUM 50 MCG TABLET GT SCH (08:33)
[2018-12-19] MEDS: AMLODIPINE BESYLATE 5 MG TABLET GT SCH ×2 (09:00→20:44)
[2018-12-19] MEDS: MINOXIDIL (2.5MG) 2.5 MG TABLET GT SCH (09:00)
--- NOTE | 2018-12-19 09:00 | NUR ---
television presenter note bp Meds was held foe now, on midodrine bp [id number]
[2018-12-19] MEDS: HYDROGEL DRESSING 90 GM TUBE TP SCH (10:10)
[2018-12-19 12:00] VITALS: BP 135/62
--- NOTE | 2018-12-19 12:00 | NUR ---
NURSE OBGYN NOTE KEEP CLEAN DRY , TURN REPOSITION, CONT ON G TUBE FEEDING ORDERED TOLERATED WELL
--- NOTE | 2018-12-19 15:00 | NUR ---
INSIDE WIREMAN NOTE MADE A BM KEEP CLEAN DRY , ALL NEEDS ATTENDED , TRACH CARE DONE
[2018-12-19 16:00] VITALS: BP 117/50
[2018-12-19] MEDS: NEPRO 1,000 ML BOTTLE GT PRN (17:54)
--- NOTE | 2018-12-19 18:06 | NUR ---
DRAWBRIDGE OPERATOR NOTE CONT ON G TUBE FEEDING TOLERATE WELL NOT IN DISTRESS, WITH TRACH TO VENT SETTING ORDERED, FAMILY AT BEDSIDE,WILL CONT TO MONITOR CLOSELY
[2018-12-19 20:00] VITALS: BP 133/60
--- NOTE | 2018-12-19 20:00 | NUR ---
REAL ESTATE SALES AGENT NOTES RECEIVED PTS IN BED , WITH EYE OPEN. NO SOB NO DISTRESS NOTED ,BREATHING EVEN AND UNLABORED .REMAIN ON VENT DEPENDENT ON AC SETTING WELL TOLERATED SATING 98%, V/S STABLE AFEBRILE .DUE IV ATB MERREM GIVEN ORDERED , DUE MEDS GIVEN ORDERED.ALL NEEDS ATTENDED TOO CALL LIGHT WITHIN REACH, PTS ON LEFT UA AV SHUNT WITH BRUIT AND THRILL NOTED STILL WITH PRABHAKAR.WITH RIGHT UPPER ARM PICC LINE INTACT AND PATENT , WITH RIGHT CHEST HD CATH ACCESS DRY INTACT AND NO BLEEDING NOTED ,ALL NEEDS ATTENDED TOO CALL LIGHT WITHIN REACH, GT FEEDING OF NEPHRO 45CC /HR WELL TOLERATED , NO RESIDUAL NOTED ,TURNED AND REPOSITION Q 2 HRS AND PRN , HOB ELEVATED FOR ASPIRATION PRECAUTION .KEPT PTS COMFORTABLE .WILL CONTINUE TO MONITOR PTS.
--- NOTE | 2018-12-19 20:20 | NUR ---
TOE STRIPPER NOTES CLARIFICATION OF ADMINISTRATION OF IV ,IV SITE ON RIGHT UPPER ARM PICCLINE IV ATB MERREM IS GIVEN ON RIGHT UPPER ARM NOT ON THE LEFT ARM.
[2018-12-19] MEDS: INSULIN GLARGINE, 100 UNIT/ML CARTRIDGE SQ SCH (20:58)
[2018-12-19] MEDS: LACTULOSE 10 G/15 ML UDC (PYXIS) GT SCH (21:00)
[2018-12-19] MEDS: ATORVASTATIN 40 MG TABLET GT SCH (21:00)
--- NOTE | 2018-12-19 21:15 | NUR ---
PIPELINE GANG SUPERVISOR NOTES BLOOD SUGAR FOR 9PM IS 259 MG/DL 12 UNITS OF REGULAR INSULIN GIVEN PER SLIDING SCALE , AND 20 UNITS OF LANTUS GIVEN ORDERED, WILL RECHECK BS AGAIN AT 1AM .
[2018-12-20] VITALS (8 sets, daily range): BP systolic 102–130; BP diastolic 44–63
--- NOTE | 2018-12-20 01:00 | NUR ---
EXHIBIT DISPLAY REPRESENTATIVE NOTES BLOOD SUGAR FOR 1AM IS 184MG/DL 4 UNITS OF REGULAR INSULIN GIVEN PER SLIDING SCALE.WILL CHECK BLOOD SUGAR AGAIN AT 5AM .
[2018-12-20] MEDS: INSULIN REGULAR, HUMAN 100 UNIT/ML 3 ML VIAL SQ PRN ×6 (01:27→21:30)
[2018-12-20] MEDS: BLOOD SUGAR DIAGNOSTIC 1 EACH STRIP IN SCH ×6 (01:28→21:25)
[2018-12-20] MEDS: IPRATROPIUM NEB FS 0.5 MG/2.5 ML AMPUL.NEB NEB SCH ×6 (03:38→22:55)
[2018-12-20] MEDS: ALBUTEROL FS 2.5 MG/0.5 ML VIAL.NEB NEB SCH ×6 (03:38→22:55)
--- NOTE | 2018-12-20 05:20 | NUR ---
AUTO RENTAL CLERK NOTES PTS IN BED REMAIN ON VENT DEPENDENT , NO SOB NO DISTRESS NOTED .V/S STABLE , PTS CONTINUE ON GT FEEDING NEPHRO AT 45CC/HR INFUSING WELL.ALL NEEDS ATTENDED TOO TURNED AND REPOSITION , MORNING CARE AND WOUND TX RENDERED , WITH NO JOSE NOTED AT THIS TIME . BLOOD SUGAR FOR 5AM IS 141MG/DL REGULAR INSULIN 2 UNITS GIVEN PER SLIDING SCALE , WILL ENDORSE PTS TO NEXT SHIFT FOR CONTINUITY OF CARE.
[2018-12-20 06:59] LABS: BASOPHILS # (AUTO) 0.1 /CMM (0.0-0.2); BASOPHILS % (AUTO) 0.9 % (0.0-2.0); EOSINOPHILS % (AUTO) 1.6 % (0.0-6.0); HEMATOCRIT 25 % (39-51); HEMOGLOBIN 7.8 g/dL (13.5-17.5); LYMPHOCYTES # (AUTO) 3.1 /CMM (0.8-4.8); LYMPHOCYTES % (AUTO) 30.3 % (20.0-44.0); MEAN CORPUSCULAR HGB CONC 32 g/dl (31.0-36.0); MEAN CORPUSCULAR VOLUME 94 fL (80-96); MONOCYTES % (AUTO) 9.5 % (2.0-12.0); NEUTROPHILS # (AUTO) 5.8 /CMM (1.8-8.9); NEUTROPHILS % (AUTO) 57.7 % (43.0-81.0); PLATELET COUNT (AUTO) 227 /CMM (150-450); RED BLOOD CELL COUNT(AUTO) 2.62 MIL/uL (4.5-6.0); WHITE BLOOD COUNT (AUTO) 10.1 K/uL (4.3-11.0)
[2018-12-20 07:22] LABS: CALCIUM, SERUM 9.2 mg/dL (8.5-10.1); CARBON DIOXIDE 22 mmol/L (21-32); CHLORIDE 97 mmol/L (98-107); CREATININE 4.8 mg/dL (0.6-1.3); GLUCOSE 133 mg/dL (74-106); MAGNESIUM 2.9 mg/dL (1.8-2.4); PHOSPHORUS 4.4 mg/dL (2.5-4.9); POTASSIUM 3.6 mmol/L (3.5-5.1); SODIUM SERUM 135 mmol/L (136-145)
--- NOTE | 2018-12-20 07:30 | NUR ---
MANAGER NEW PRODUCT OPENING NOTES PATIENT IN BED RESTING COMFORTABLY ON VENT. PATIENT HOB IS ELEVATED. TOLERATING VENT SETTINGS WELL. PATIENT IN NO ACUTE DISTRESS. NO SOB NOTED. PATIENT BREATHING IS EVEN AND UNLABORED. PATIENT LEFT UA AV SHUNT WITH BRUIT AND THRILL NOTED. PATIENT RIGHT UPPER ARM PICC LINE INTACT, WITH RIGHT CHEST HD CATH ACCESS DRY AND INTACT. NO BLEEDING NOTED. PATIENT BED IS LOCKED AND IN LOWEST POSITION. CALL LIGHT WITHIN REACH. SAFETY PRECAUTIONS IN PLACE. WILL CONTINUE TO MONITOR.
[2018-12-20 07:41] LABS: VANCOMYCIN,TROUGH 19 ug/ml (12-20)
[2018-12-20 07:49] LABS: UREA NITROGEN, BLOOD 92 mg/dL (7-18)
--- NOTE | 2018-12-20 07:52 | NUR ---
MACHINE CEMENTER NOTE RECEIVED CRITICAL LAB VALUE BUN [address] ALICIA DUVALL MADE AWARE. NO NEW ORDERS AT THIS TIME. PATIENT IN NO ACUTE DISTRESS. WILL CONTINUE TO MONITOR.
[2018-12-20 08:18] LABS: BAND % (MANUAL) 3 % (0.0-5.0); EOSINOPHILS % (MANUAL) 2 % (0-4); LYMPHOCYTES % (MANUAL) 23 % (16-48); METAMYELOCYTES % 1 % (0-0); MONOCYTES % (MANUAL) 7 % (0-11.0); MYELOCYTES % 2 % (0-0); NEUTROPHILS % (MANUAL) 62 (42-76)
[2018-12-20] MEDS: AMLODIPINE BESYLATE 5 MG TABLET GT SCH ×2 (09:00→21:25)
[2018-12-20] MEDS: MINOXIDIL (2.5MG) 2.5 MG TABLET GT SCH (09:00)
--- NOTE | 2018-12-20 09:00 | NUR ---
MANAGER DRUG SAFETY NOTE PATIENT UNDERGOING HEMODIALYSIS. HELD BP MEDICATIONS THIS AM. PATIENT IN NO ACUTE DISTRESS. WILL CONTINUE TO MONITOR.
[2018-12-20] MEDS: SEVELAMER CARBONATE 0.8 GM POWD.PACK GT SCH ×3 (10:00→16:49)
[2018-12-20] MEDS: PANTOPRAZOLE 40 MG/PACK PACK GT SCH ×2 (10:00→16:50)
[2018-12-20] MEDS: LEVETIRACETAM SOL (5 ML) 100 MG/ML UDC GT SCH ×2 (10:00→21:24)
[2018-12-20] MEDS: HYDROCORTISONE SOD SUCCINATE 100 MG/2 ML VIAL IV SCH ×3 (10:01→16:49)
[2018-12-20] MEDS: LACTOBACILLUS RHAMNOSUS GG 1 EACH CAP.SPRINK GT SCH ×2 (10:01→16:49)
[2018-12-20] MEDS: LEVOTHYROXINE SODIUM 50 MCG TABLET GT SCH (10:02)
[2018-12-20] MEDS: VIT B CMPLX 3/FA/VIT C/BIOTIN 1 TAB TABLET GT SCH (10:02)
[2018-12-20] MEDS: FLUDROCORTISONE 0.1 MG TABLET GT SCH (10:05)
[2018-12-20] MEDS: HYDROGEL DRESSING 90 GM TUBE TP SCH (10:08)
[2018-12-20] MEDS: PROSOURCE / PROSTAT (PYXIS) 30 ML UDC GT SCH ×2 (10:10→16:51)
[2018-12-20] MEDS: MIDODRINE HCL (5MG) 5 MG TABLET GT SCH ×2 (10:33→21:25)
[2018-12-20] MEDS: MEROPENEM 500 MG in IV NS 0.9% 50 ML IV SCH ×2 (10:33→21:25)
[2018-12-20] MEDS: SUCRALFATE 1 G TABLET PO SCH ×3 (12:24→21:26)
[2018-12-20] MEDS: VANCOMYCIN 500 MG in IV D5W 100 ML IV PRN (15:09)
[2018-12-20] MEDS: NEPRO 1,000 ML BOTTLE GT PRN (19:19)
--- NOTE | 2018-12-20 19:30 | NUR ---
ALUM OPERATOR NOTE PATIENT REPORT GIVEN BEDSIDE. PATIENT IN BED. NON VERBAL BUT OPENS EYES TO STIMULUS. PATIENT IN NO APPARENT S/S OF DISTRESS. PATIENT TOLERATING VENT SETTINGS WELL. BREATHING EVEN AND UNLABORED, TRACHEA MIDLINE. PATIENT SR ON THE MONITOR HR IN HR IN THE 60'S. PATIENT TURNED AND REPOSITIONED FOR PROTECTION AND COMFORT. TUBE FEEDING CHANGED, ORAL CARE GIVEN. NO RESIDUAL NOTED AT THIS TIME. PATIENT HOB IN SEMI FOWLERS. SAFETY PRECAUTIONS IN PLACE. BED IN LOWEST LOCKED POSTION SIDE RAILS UP X3. RN WILL CONTINUE TO MONITOR FOR CHANGES. FAMILY PRESENT AT BEDSIDE. PLAN OF CARE DISCUSSED WITH .
--- NOTE | 2018-12-20 19:45 | NUR ---
PHP WORDPRESS DEVELOPER CLOSING NOTES PATIENT IS RESTING COMFORTABLY IN BED. PATIENT IN NO ACUTE DISTRESS. NO SOB NOTED. PATIENT BREATHING IS EVEN AND UNLABORED. PATIENT IS TOLERATING VENT SETTINGS WELL. PATIENT WAS KEPT, CLEAN, DRY, AND REPOSITIONED DURING MY SHIFT. EXTREMITIES WERE OFFLOADED. WOUND CARE PERFORMED ORDERED. PATIENT HOB OF THE BED IS ELEVATED. PATIENT IV'S INTACT. HD CATH IS INTACT. ALL NURSING NEEDS MET. PATIENT BED IS LOCKED AND IN LOWEST POSITION. SAFETY PRECAUTIONS IN PLACE. CALL LIGHT WITHIN REACH. WILL ENDORSE CARE TO PM SHIFT FOR JOSE.
[2018-12-20] MEDS: ATORVASTATIN 40 MG TABLET GT SCH (21:26)
[2018-12-20] MEDS: LACTULOSE 10 G/15 ML UDC (PYXIS) GT SCH (21:26)
[2018-12-20] MEDS: INSULIN GLARGINE, 100 UNIT/ML CARTRIDGE SQ SCH (21:33)
[2018-12-21] VITALS: BP 134/55
[2018-12-21] MEDS: BLOOD SUGAR DIAGNOSTIC 1 EACH STRIP IN SCH ×6 (01:52→21:17)
[2018-12-21] MEDS: INSULIN REGULAR, HUMAN 100 UNIT/ML 3 ML VIAL SQ PRN ×6 (02:04→21:18)
[2018-12-21 04:00] VITALS: BP 120/44
[2018-12-21] MEDS: IPRATROPIUM NEB FS 0.5 MG/2.5 ML AMPUL.NEB NEB SCH ×5 (06:02→19:43)
[2018-12-21] MEDS: ALBUTEROL FS 2.5 MG/0.5 ML VIAL.NEB NEB SCH ×5 (06:03→19:43)
--- NOTE | 2018-12-21 06:48 | NUR ---
ASSIGNMENT DESK EDITOR NOTE PATIENT TOLERATED THE NIGHT WELL. NO ACUTE CHANGES NOTED. NO S/S OF ACUTE DISTRESS NOTED. PATIENT BREATHING EVEN AND UNLABORED HR IN THE 70'S SR ALL NIGHT. ALL CARE GIVEN ORDERED. WOUND CARE AND TURNING Q 2 HOURS GIVEN. RN WILL ENDORSE TO AM POC FOR JOSE. SAFETY PRECAUTIONS IN PLACE.
[2018-12-21 06:56] LABS: BASOPHILS % (AUTO) 0.4 % (0.0-2.0); EOSINOPHILS % (AUTO) 0.7 % (0.0-6.0); HEMATOCRIT 26 % (39-51); HEMOGLOBIN 8.5 g/dL (13.5-17.5); LYMPHOCYTES # (AUTO) 2.8 /CMM (0.8-4.8); MEAN CORPUSCULAR HGB CONC 33 g/dl (31.0-36.0); MEAN CORPUSCULAR VOLUME 94 fL (80-96); MONOCYTES # (AUTO) 0.9 /CMM (0.1-1.30); MONOCYTES % (AUTO) 9.2 % (2.0-12.0); NEUTROPHILS # (AUTO) 6.4 /CMM (1.8-8.9); NEUTROPHILS % (AUTO) 62.7 % (43.0-81.0); PLATELET COUNT (AUTO) 223 /CMM (150-450); WHITE BLOOD COUNT (AUTO) 10.2 K/uL (4.3-11.0)
--- NOTE | 2018-12-21 07:00 | NUR ---
MANUFACTURING PLANT TECHNICIAN OPENING NOTES RECEIVED REPORT AT BEDSIDE. PATIENT IN BED RESTING COMFORTABLY. BREATHING IS EVEN AND UNLABORED. PATIENT LEFT UA AV SHUNT WITH BRUIT AND THRILL NOTED. PATIENT RIGHT UPPER ARM PICC LINE INTACT, WITH RIGHT CHEST HD CATH ACCESS DRY AND INTACT. NO BLEEDING NOTED. GTUBE FEEDING NEPRO RUNNING @45 ML/HR. PATIENT BED IS LOCKED AND IN LOWEST POSITION. SIDE RAILS UPX2. HOB ELEVATED. CALL LIGHT WITHIN REACH. SAFETY PRECAUTIONS IN PLACE. WILL CONTINUE TO MONITOR.
[2018-12-21 07:08] LABS: CARBON DIOXIDE 26 mmol/L (21-32); CHLORIDE 99 mmol/L (98-107); GLUCOSE 112 mg/dL (74-106); POTASSIUM 3.8 mmol/L (3.5-5.1); SODIUM SERUM 137 mmol/L (136-145); UREA NITROGEN, BLOOD 78 mg/dL (7-18)
[2018-12-21 08:00] VITALS: BP 140/66
[2018-12-21] MEDS: LEVOTHYROXINE SODIUM 50 MCG TABLET GT SCH (08:27)
[2018-12-21] MEDS: FLUDROCORTISONE 0.1 MG TABLET GT SCH (08:27)
[2018-12-21] MEDS: VIT B CMPLX 3/FA/VIT C/BIOTIN 1 TAB TABLET GT SCH (08:27)
[2018-12-21] MEDS: AMLODIPINE BESYLATE 5 MG TABLET GT SCH ×2 (08:28→21:16)
[2018-12-21] MEDS: MINOXIDIL (2.5MG) 2.5 MG TABLET GT SCH (08:28)
[2018-12-21] MEDS: LEVETIRACETAM SOL (5 ML) 100 MG/ML UDC GT SCH ×2 (08:29→21:16)
[2018-12-21] MEDS: LACTOBACILLUS RHAMNOSUS GG 1 EACH CAP.SPRINK GT SCH ×2 (08:29→17:17)
[2018-12-21] MEDS: SEVELAMER CARBONATE 0.8 GM POWD.PACK GT SCH ×3 (08:29→17:16)
[2018-12-21] MEDS: MIDODRINE HCL (5MG) 5 MG TABLET GT SCH ×2 (08:29→21:16)
[2018-12-21] MEDS: PANTOPRAZOLE 40 MG/PACK PACK GT SCH ×2 (08:30→17:17)
[2018-12-21] MEDS: SUCRALFATE 1 G TABLET PO SCH ×4 (08:32→22:58)
[2018-12-21] MEDS: MEROPENEM 500 MG in IV NS 0.9% 50 ML IV SCH ×2 (09:15→21:17)
[2018-12-21] MEDS: HYDROCORTISONE SOD SUCCINATE 100 MG/2 ML VIAL IV SCH ×3 (09:16→17:17)
[2018-12-21] MEDS: PROSOURCE / PROSTAT (PYXIS) 30 ML UDC GT SCH ×2 (09:36→17:17)
[2018-12-21 12:00] VITALS: BP 130/63
[2018-12-21 16:00] VITALS: BP 116/58
[2018-12-21] MEDS: HYDROGEL DRESSING 90 GM TUBE TP SCH (17:18)
--- NOTE | 2018-12-21 19:14 | NUR ---
CARBONATION EQUIPMENT TENDER NOTE PT A/OX1. VENT SETTING ORDERED. ON TELE MONITOR SINUS RHYTHM HR 89. NO SIGN OF RESPIRATORY DISTRESS OR SOB AT THIS TIME. NO SIGNIFICANT CHANGE DURING THE SHIFT. G TUBE FEEDING @45 ML/HR, RESIDUAL VOLUME LESS THAN 100 ML. SAFETY PRECAUTION IN PLACE. BED LOCKED AND AT THE LOWEST POSITION, SIDE RAILS UPX3, BED ALARM ON, CALL LIGHT WITHIN THE REACH. ALL NEEDS ATTENDED. WILL ENDORSE TO THE PUBLIC RELATIONS SUPERVISOR NURSE FOR JOSE.
--- NOTE | 2018-12-21 19:15 | NUR ---
NUTS AND BOLTS ASSEMBLER NOTE PATIENT REPORT GIVEN BEDSIDE. PATIENT IN BED. NON VERBAL BUT OPENS EYES TO STIMULUS ABLE TO TRACK, BUT NOT FOLLOW INSTRUCTIONS. PATIENT IN NO APPARENT S/S OF DISTRESS. PATIENT TOLERATING VENT SETTINGS WELL. BREATHING EVEN AND UNLABORED, TRACHEA MIDLINE. PATIENT SUCTIONED MINIMAL SECRETIONS NOTED PATIENT SR ON THE MONITOR HR IN THE 70'S. PATIENT TURNED AND REPOSITIONED FOR PROTECTION AND COMFORT. ORAL CARE GIVEN. NO RESIDUAL NOTED AT THIS TIME. PATIENT HOB IN SEMI FOWLERS. SAFETY PRECAUTIONS IN PLACE. BED IN LOWEST LOCKED POSITION SIDE RAILS UP X3. RN WILL CONTINUE TO MONITOR FOR CHANGES.
[2018-12-21 20:00] VITALS: BP 129/52
[2018-12-21] MEDS ORDERED: INSULIN REGULAR, HUMAN 100 UNIT/ML 3 ML VIAL ONE (20:20)
[2018-12-21] MEDS: NEPRO 1,000 ML BOTTLE GT PRN (20:30)
[2018-12-21] MEDS: LACTULOSE 10 G/15 ML UDC (PYXIS) GT SCH (22:50)
[2018-12-21] MEDS: INSULIN GLARGINE, 100 UNIT/ML CARTRIDGE SQ SCH (22:56)
[2018-12-21] MEDS: ATORVASTATIN 40 MG TABLET GT SCH (22:56)
[2018-12-22] VITALS (7 sets, daily range): BP systolic 96–136; BP diastolic 46–56
[2018-12-22] MEDS: IPRATROPIUM NEB FS 0.5 MG/2.5 ML AMPUL.NEB NEB SCH ×7 (00:07→22:45)
[2018-12-22] MEDS: ALBUTEROL FS 2.5 MG/0.5 ML VIAL.NEB NEB SCH ×7 (00:07→22:45)
[2018-12-22] MEDS: BLOOD SUGAR DIAGNOSTIC 1 EACH STRIP IN SCH ×6 (01:39→20:58)
[2018-12-22] MEDS: INSULIN REGULAR, HUMAN 100 UNIT/ML 3 ML VIAL SQ PRN ×6 (02:14→21:00)
--- NOTE | 2018-12-22 06:48 | NUR ---
CHROME CLEANER NOTE PATIENT TOLERATED THE NIGHT WELL. NO ACUTE CHANGES NOTED. NO S/S OF ACUTE DISTRESS NOTED. PATIENT BREATHING EVEN AND UNLABORED TOLERATING VENT SETTINGS ORDERED. HR IN THE 70'S TO 80'S SR ALL NIGHT. ALL CARE GIVEN ORDERED. WOUND CARE AND TURNING Q 2 HOURS GIVEN. RN WILL ENDORSE TO AM POC FOR JOSE. SAFETY PRECAUTIONS IN PLACE.
[2018-12-22 07:42] LABS: BASOPHILS % (AUTO) 0.3 % (0.0-2.0); CALCIUM, SERUM 8.8 mg/dL (8.5-10.1); CARBON DIOXIDE 24 mmol/L (21-32); CHLORIDE 95 mmol/L (98-107); CREATININE 5.3 mg/dL (0.6-1.3); EOSINOPHILS % (AUTO) 0.7 % (0.0-6.0); GLUCOSE 157 mg/dL (74-106); HEMATOCRIT 25 % (39-51); HEMOGLOBIN 7.9 g/dL (13.5-17.5); LYMPHOCYTES # (AUTO) 2.9 /CMM (0.8-4.8); LYMPHOCYTES % (AUTO) 27.3 % (20.0-44.0); MEAN CORPUSCULAR HGB CONC 32 g/dl (31.0-36.0); MEAN CORPUSCULAR VOLUME 94 fL (80-96); MONOCYTES # (AUTO) 0.9 /CMM (0.1-1.30); MONOCYTES % (AUTO) 8.5 % (2.0-12.0); NEUTROPHILS # (AUTO) 6.8 /CMM (1.8-8.9); NEUTROPHILS % (AUTO) 63.2 % (43.0-81.0); PLATELET COUNT (AUTO) 220 /CMM (150-450); POTASSIUM 4.2 mmol/L (3.5-5.1); RED BLOOD CELL COUNT(AUTO) 2.65 MIL/uL (4.5-6.0); SODIUM SERUM 133 mmol/L (136-145); WHITE BLOOD COUNT (AUTO) 10.8 K/uL (4.3-11.0)
[2018-12-22 07:47] LABS: UREA NITROGEN, BLOOD 115 mg/dL (7-18)
--- NOTE | 2018-12-22 08:00 | NUR ---
RN NOTE RELAYED BUN [address] AND CR 5.[address] DUVALL. PT WILL HAVE HD TODAY.
[2018-12-22 08:21] LABS: OCCULT BLOOD STOOL POSITIVE (NEGATIVE)
[2018-12-22] MEDS: SUCRALFATE 1 G TABLET PO SCH ×4 (08:55→21:02)
[2018-12-22] MEDS: MIDODRINE HCL (5MG) 5 MG TABLET GT SCH ×2 (08:56→20:49)
[2018-12-22] MEDS: PROSOURCE / PROSTAT (PYXIS) 30 ML UDC GT SCH ×2 (08:56→16:43)
[2018-12-22] MEDS: LACTOBACILLUS RHAMNOSUS GG 1 EACH CAP.SPRINK GT SCH ×2 (08:56→16:43)
[2018-12-22] MEDS: PANTOPRAZOLE 40 MG/PACK PACK GT SCH ×2 (08:56→16:43)
[2018-12-22] MEDS: AMLODIPINE BESYLATE 5 MG TABLET GT SCH ×2 (09:00→20:50)
[2018-12-22] MEDS: HYDROGEL DRESSING 90 GM TUBE TP SCH (09:00)
[2018-12-22 09:21] LABS: BAND % (MANUAL) 3 % (0.0-5.0); LYMPHOCYTES % (MANUAL) 24 % (16-48); METAMYELOCYTES % 2 % (0-0); MONOCYTES % (MANUAL) 7 % (0-11.0); NEUTROPHILS % (MANUAL) 64 (42-76)
--- NOTE | 2018-12-22 12:00 | NUR ---
RN NOTE PT AM MEDS HELD DUE TO HD. AND GIVEN AFTER HD, THAT IS WHY RENVELA, AND SOLU CORTEF SCHEDULED FOR 1300 WERE NOT GIVEN.
[2018-12-22] MEDS: SEVELAMER CARBONATE 0.8 GM POWD.PACK GT SCH ×3 (12:01→16:43)
[2018-12-22] MEDS: LEVOTHYROXINE SODIUM 50 MCG TABLET GT SCH (12:01)
[2018-12-22] MEDS: VIT B CMPLX 3/FA/VIT C/BIOTIN 1 TAB TABLET GT SCH (12:01)
[2018-12-22] MEDS: FLUDROCORTISONE 0.1 MG TABLET GT SCH (12:01)
[2018-12-22] MEDS: LEVETIRACETAM SOL (5 ML) 100 MG/ML UDC GT SCH ×2 (12:01→20:48)
[2018-12-22] MEDS: MEROPENEM 500 MG in IV NS 0.9% 50 ML IV SCH ×2 (12:02→20:49)
[2018-12-22] MEDS: HYDROCORTISONE SOD SUCCINATE 100 MG/2 ML VIAL IV SCH ×3 (12:02→16:43)
[2018-12-22] MEDS: MINOXIDIL (2.5MG) 2.5 MG TABLET GT SCH (12:14)
--- NOTE | 2018-12-22 14:28 | NUR ---
RN NOTE PHARMACY NOTIFIED - VANCO TROUGH IS 22 TODAY PRIOR HD, HD DONE, WILL HELD THE DOSE TODAY.
[2018-12-22] MEDS: ACETAMINOPHEN 650 MG/SUPP.RECT RC PRN (16:43)
[2018-12-22 18:26] LABS: HEMOGLOBIN 8.6 g/dL (13.5-17.5)
[2018-12-22] MEDS: NEPRO 1,000 ML BOTTLE GT PRN (19:32)
[2018-12-22] MEDS: INSULIN GLARGINE, 100 UNIT/ML CARTRIDGE SQ SCH (21:01)
[2018-12-22] MEDS: LACTULOSE 10 G/15 ML UDC (PYXIS) GT SCH (21:02)
[2018-12-22] MEDS: ATORVASTATIN 40 MG TABLET GT SCH (21:02)
[2018-12-23] VITALS: BP 101/49
[2018-12-23] MEDS: BLOOD SUGAR DIAGNOSTIC 1 EACH STRIP IN SCH ×6 (01:45→20:36)
[2018-12-23] MEDS: INSULIN REGULAR, HUMAN 100 UNIT/ML 3 ML VIAL SQ PRN ×4 (01:46→20:36)
[2018-12-23] MEDS: ALBUTEROL FS 2.5 MG/0.5 ML VIAL.NEB NEB SCH ×6 (03:22→23:21)
[2018-12-23] MEDS: IPRATROPIUM NEB FS 0.5 MG/2.5 ML AMPUL.NEB NEB SCH ×6 (03:22→23:21)
[2018-12-23 04:00] VITALS: BP 105/55
[2018-12-23 06:46] LABS: BASOPHILS # (AUTO) 0.1 /CMM (0.0-0.2); BASOPHILS % (AUTO) 0.6 % (0.0-2.0); EOSINOPHILS % (AUTO) 0.9 % (0.0-6.0); HEMATOCRIT 26 % (39-51); HEMOGLOBIN 8.4 g/dL (13.5-17.5); LYMPHOCYTES % (AUTO) 25.8 % (20.0-44.0); MEAN CORPUSCULAR HGB CONC 32 g/dl (31.0-36.0); MEAN CORPUSCULAR VOLUME 93 fL (80-96); MONOCYTES # (AUTO) 0.9 /CMM (0.1-1.30); MONOCYTES % (AUTO) 7.9 % (2.0-12.0); NEUTROPHILS # (AUTO) 7.6 /CMM (1.8-8.9); NEUTROPHILS % (AUTO) 64.8 % (43.0-81.0); PLATELET COUNT (AUTO) 221 /CMM (150-450); RED BLOOD CELL COUNT(AUTO) 2.79 MIL/uL (4.5-6.0); WHITE BLOOD COUNT (AUTO) 11.7 K/uL (4.3-11.0)
--- NOTE | 2018-12-23 07:20 | NUR ---
RN INITIAL NOTE PATIENT IN BED, AWAKE, ONLY OPENS EYES. NON VERBAL. ON TELE MONITOR, SR. LAST HD YESTERDAY 3L OUT. NEPRO ON HOLD. PER BIRD'S NOTES FROM YESTERDAY. PATIENT WILL HAVE EGD THIS AM. NO ORDERS TO BE NPO. CONSENT NOT SIGNED YET. WILL CLARIFY WITH CULINARY ARTS INSTRUCTOR/MD ABOUT PROCEDURE TODAY. NOC SHIFT RN HELD FEEDING STARTING AT 0600. HAS MICHELLE PICC, TKO. LEFT UA AV SHUNT AND RIGHT SUBCLAVIAN TUNNELED HD CATH. POSITIVE FOR STOOL OB. NO SIGNS OF ANY PAIN NOR SOB AT THIS TIME. BED LOCKED AND IN LOWEST POSITION. WILL CONT TO MONITOR
[2018-12-23 07:21] LABS: CALCIUM, SERUM 8.7 mg/dL (8.5-10.1); CARBON DIOXIDE 27 mmol/L (21-32); CHLORIDE 95 mmol/L (98-107); CREATININE 3.8 mg/dL (0.6-1.3); GLUCOSE 138 mg/dL (74-106); POTASSIUM 4.6 mmol/L (3.5-5.1); SODIUM SERUM 133 mmol/L (136-145); UREA NITROGEN, BLOOD 78 mg/dL (7-18)
[2018-12-23] MEDS: SUCRALFATE 1 G TABLET PO SCH ×4 (07:30→21:06)
[2018-12-23 08:00] VITALS: BP 95/49
--- NOTE | 2018-12-23 08:07 | NUR ---
RN NOTE CN AWARE ABOUT THE PATIENT BEING ONLY NPO STARTING AT 0600. MADE DR RASHID AWARE WELL
[2018-12-23] MEDS: FLUDROCORTISONE 0.1 MG TABLET GT SCH ×2 (09:00→12:03)
[2018-12-23] MEDS: LEVETIRACETAM SOL (5 ML) 100 MG/ML UDC GT SCH ×2 (09:00→20:41)
[2018-12-23] MEDS: VIT B CMPLX 3/FA/VIT C/BIOTIN 1 TAB TABLET GT SCH ×2 (09:00→12:04)
[2018-12-23] MEDS: PANTOPRAZOLE 40 MG/PACK PACK GT SCH ×2 (09:00→16:30)
[2018-12-23] MEDS: LACTOBACILLUS RHAMNOSUS GG 1 EACH CAP.SPRINK GT SCH ×2 (09:00→16:30)
[2018-12-23] MEDS: AMLODIPINE BESYLATE 5 MG TABLET GT SCH ×2 (09:00→20:41)
[2018-12-23] MEDS: PROSOURCE / PROSTAT (PYXIS) 30 ML UDC GT SCH ×2 (09:00→16:30)
[2018-12-23] MEDS: MIDODRINE HCL (5MG) 5 MG TABLET GT SCH ×2 (09:00→20:41)
[2018-12-23] MEDS: SEVELAMER CARBONATE 0.8 GM POWD.PACK GT SCH ×3 (09:00→16:30)
[2018-12-23] MEDS: LEVOTHYROXINE SODIUM 50 MCG TABLET GT SCH ×2 (09:00→12:03)
[2018-12-23] MEDS: MINOXIDIL (2.5MG) 2.5 MG TABLET GT SCH ×2 (09:00→12:04)
[2018-12-23] MEDS: MEROPENEM 500 MG in IV NS 0.9% 50 ML IV SCH (09:14)
[2018-12-23] MEDS: HYDROCORTISONE SOD SUCCINATE 100 MG/2 ML VIAL IV SCH ×3 (09:15→16:30)
[2018-12-23] MEDS: HYDROGEL DRESSING 90 GM TUBE TP SCH (09:24)
--- NOTE | 2018-12-23 09:45 | NUR ---
RN NOTE PATIENT'S BLOOD SUGAR AT 0900 WAS 136. INSULIN COVERAGE NOT ADMINISTERED SINCE PATIENT IS CURRENTLY NPO AT THIS TIME FOR THE UPCOMING PROCEDURE - EGD TODAY.
[2018-12-23 10:41] LABS: LYMPHOCYTES % (MANUAL) 28 % (16-48); MONOCYTES % (MANUAL) 5 % (0-11.0); NEUTROPHILS % (MANUAL) 67 (42-76)
--- NOTE | 2018-12-23 10:59 | NUR ---
RN NOTE RECEIVED A CALL FROM [facility]. EGD WILL BE CANCELLED TODAY AND WILL DO TOMORROW SINCE NO ORDER HAS BEEN PUT IN AND PATIENT HAS NOT BEEN NPO STARTING MIDNIGHT. WILL LET BIRD AWARE. STARTED FEEDING AT 45 ML/HR.
[2018-12-23 12:00] VITALS: BP 122/61
[2018-12-23 16:00] VITALS: BP 95/49
[2018-12-23] MEDS: NEPRO 1,000 ML BOTTLE GT PRN (17:41)
[2018-12-23 18:38] LABS: HEMOGLOBIN 8.5 g/dL (13.5-17.5)
--- NOTE | 2018-12-23 18:47 | NUR ---
RN CLOSING NOTE PATIENT IN BED, AWAKE OPENS EYES. NONVERBAL. ON VENT, NO SOB NOTED. ON TELE MONITOR, SR. HAD 1X SMALL BM, BLACK TARRY STOOL. NEPRO RUNNING AT 45ML/HR. NO RESIDUAL NOTED. RIGHT UA PICC, INTACT PATENT AND SL. INSULIN COVERAGE GIVEN. HD TOMORROW AT 0700. POSSIBLE EGD TOMORROW, NPO AFTER MIDNIGHT. BED LOCKED AND IN LOWEST POSITION. WILL ENDORSE TO NOC SHIFT RN FOR JOSE
[2018-12-23 20:00] VITALS: BP 114/52
--- NOTE | 2018-12-23 21:00 | NUR ---
RN NOTE JUAN WRAPPING MACHINE HELPER IS BY BEDSIDE, PER JUAN HINES NO EGD TOMORROW BECAUSE ITS DR KEITH PATIENT AND HE NEEDS TO SEE PATIENT FIRST
[2018-12-23] MEDS: INSULIN GLARGINE, 100 UNIT/ML CARTRIDGE SQ SCH (21:01)
[2018-12-23] MEDS: LACTULOSE 10 G/15 ML UDC (PYXIS) GT SCH (21:06)
[2018-12-23] MEDS: ATORVASTATIN 40 MG TABLET GT SCH (21:06)
[2018-12-24] VITALS: BP 95/42
--- NOTE | 2018-12-24 | NUR ---
RN NOTES, PATIENT ENDORSED FROM BYRON BOATENG FOR CONTINUATION OF CARE, PATIENT WITH EYES OPEN ON VENTILATOR SUPPORT TOLERATED SETTINGS WELL, NO SOB/ACUTE DISTRESS NOTED AT THIS TIME, GTF INFUSING WELL AND PATIENT TOLERATED WELL, WILL CONTINUE TO MONITOR CLOSELY.
--- NOTE | 2018-12-24 | NUR ---
RN NOTE PROVIDED REPORT TO MEGAN MATTHEWS SUE
[2018-12-24] MEDS: BLOOD SUGAR DIAGNOSTIC 1 EACH STRIP IN SCH ×5 (01:43→16:58)
[2018-12-24] MEDS: INSULIN REGULAR, HUMAN 100 UNIT/ML 3 ML VIAL SQ PRN ×4 (01:46→17:02)
[2018-12-24 04:00] VITALS: BP 110/43
[2018-12-24] MEDS: IPRATROPIUM NEB FS 0.5 MG/2.5 ML AMPUL.NEB NEB SCH ×5 (04:19→20:06)
[2018-12-24] MEDS: ALBUTEROL FS 2.5 MG/0.5 ML VIAL.NEB NEB SCH ×5 (04:19→20:06)
[2018-12-24 06:38] LABS: CALCIUM, SERUM 8.6 mg/dL (8.5-10.1); CARBON DIOXIDE 25 mmol/L (21-32); CHLORIDE 95 mmol/L (98-107); GLUCOSE 148 mg/dL (74-106); POTASSIUM 5.3 mmol/L (3.5-5.1); SODIUM SERUM 131 mmol/L (136-145)
[2018-12-24 06:44] LABS: BASOPHILS # (AUTO) 0.1 /CMM (0.0-0.2); BASOPHILS % (AUTO) 0.5 % (0.0-2.0); EOSINOPHILS % (AUTO) 0.5 % (0.0-6.0); HEMATOCRIT 25 % (39-51); LYMPHOCYTES # (AUTO) 2.9 /CMM (0.8-4.8); LYMPHOCYTES % (AUTO) 29.2 % (20.0-44.0); MEAN CORPUSCULAR HGB CONC 33 g/dl (31.0-36.0); MEAN CORPUSCULAR VOLUME 92 fL (80-96); MONOCYTES # (AUTO) 0.8 /CMM (0.1-1.30); NEUTROPHILS % (AUTO) 61.8 % (43.0-81.0); PLATELET COUNT (AUTO) 228 /CMM (150-450); RED BLOOD CELL COUNT(AUTO) 2.65 MIL/uL (4.5-6.0); WHITE BLOOD COUNT (AUTO) 9.8 K/uL (4.3-11.0)
[2018-12-24 06:45] LABS: UREA NITROGEN, BLOOD 121 mg/dL (7-18)
--- NOTE | 2018-12-24 06:54 | NUR ---
RN NOTES, PATIENT IN BED PATIENT WITH EYES OPEN, ON VENTILATOR SUPPORT TOLERATED SETTINGS WELL, NO SOB/ACUTE DISTRESS NOTED AT THIS TIME, RCW HD CATHETER INTACT, NO BLEEDING OR ABNORMALITY NOTED, TOMMY PICC LINE PATENT AND INTACT, DRESSING CHANGED, GTF INFUSING WELL AND PATIENT TOLERATED WELL, NO SIGNIFICANT CHANGE IN CONDITION DURING THE NIGHT, BED LOCKED AND IN LOWEST POSITION, KEPT DRY AND CLEAN, REPOSITION PROVIDED Q2HRS AND PRN FOR PRESSURE RELIEF, WILL ENDORSE CONTINUITY OF CARE TO ONCOMING NURSE..
--- NOTE | 2018-12-24 07:15 | NUR ---
RN INITIAL NOTE PATIENT IN BED, AWAKE, ONLY OPENS EYES. NON VERBAL. ON TELE MONITOR, SR. HD SCHEDULED TODAY. HAS MICHELLE PICC, TKO. LEFT UA AV SHUNT AND RIGHT SUBCLAVIAN TUNNELED HD CATH. POSITIVE FOR STOOL OB. POSSIBLE EGD. NO SIGNS OF ANY PAIN NOR SOB AT THIS TIME. BED LOCKED AND IN LOWEST POSITION. WILL CONT TO MONITOR
[2018-12-24] MEDS: SUCRALFATE 1 G TABLET PO SCH ×3 (07:54→16:58)
[2018-12-24 08:00] VITALS: BP 114/75
[2018-12-24] MEDS: SEVELAMER CARBONATE 0.8 GM POWD.PACK GT SCH ×3 (08:43→16:58)
[2018-12-24] MEDS: LACTOBACILLUS RHAMNOSUS GG 1 EACH CAP.SPRINK GT SCH ×2 (08:43→16:58)
[2018-12-24] MEDS: PANTOPRAZOLE 40 MG/PACK PACK GT SCH ×2 (08:43→16:58)
[2018-12-24] MEDS: VIT B CMPLX 3/FA/VIT C/BIOTIN 1 TAB TABLET GT SCH (08:44)
[2018-12-24] MEDS: AMLODIPINE BESYLATE 5 MG TABLET GT SCH (08:44)
[2018-12-24] MEDS: LEVOTHYROXINE SODIUM 50 MCG TABLET GT SCH (08:44)
[2018-12-24] MEDS: FLUDROCORTISONE 0.1 MG TABLET GT SCH (08:44)
[2018-12-24] MEDS: MINOXIDIL (2.5MG) 2.5 MG TABLET GT SCH (08:44)
[2018-12-24] MEDS: LEVETIRACETAM SOL (5 ML) 100 MG/ML UDC GT SCH (08:45)
[2018-12-24] MEDS: HYDROCORTISONE SOD SUCCINATE 100 MG/2 ML VIAL IV SCH ×3 (08:45→16:53)
[2018-12-24] MEDS: MIDODRINE HCL (5MG) 5 MG TABLET GT SCH (08:45)
[2018-12-24] MEDS: PROSOURCE / PROSTAT (PYXIS) 30 ML UDC GT SCH ×2 (08:45→16:58)
[2018-12-24] MEDS: HYDROGEL DRESSING 90 GM TUBE TP SCH (08:56)
[2018-12-24 10:08] LABS: BAND % (MANUAL) 2 % (0.0-5.0); EOSINOPHILS % (MANUAL) 1 % (0-4); LYMPHOCYTES % (MANUAL) 19 % (16-48); MONOCYTES % (MANUAL) 7 % (0-11.0); MYELOCYTES % 3 % (0-0); NEUTROPHILS % (MANUAL) 68 (42-76)
[2018-12-24 12:00] VITALS: BP 105/48
--- NOTE | 2018-12-24 12:30 | NUR ---
RN NOTE DR BARRIGA ORDERED DC FOR THIS PATIENT. DR KEITH MADE AWARE, EGD NOT NEED PER DR PARKER BARRIGA. LIVESTOCK JUDGING COACH AWARE. PATIENT WILL BE DC AFTER DIALYSIS, LEGAL BILLING SPECIALIST AROUND [id number] TONIGHT.
[2018-12-24] MEDS ORDERED: FLUD0.1T3 GT (14:01)
--- NOTE | 2018-12-24 15:08 | NUR ---
RN NOTE REPORT GIVEN TO [facility] ZAMUDIO [facility], TALKED TO BYRON CARRANZA Addendum: 12/24/18 at 1524 by RIP FERNANDES RN CALLED SUN[place], PATIENT'S SON TO INFORM ABOUT THE DC. AT BEDSIDE, AWARE WELL
--- NOTE | 2018-12-24 15:23 | NUR ---
RT UNABLE TO PERFORM 1PM VENT CHECK. IN XRAY/SEDATION PROCEDURE WITH DIFFERENT PT FOR 90 MINUTES AT THE TIME
[2018-12-24 16:00] VITALS: BP 101/50
--- NOTE | 2018-12-24 16:59 | NUR ---
RN NOTE ALL 1700 MEDS NOT GIVEN, PATIENT ON DIALYSIS
--- NOTE | 2018-12-24 17:20 | NUR ---
PT RECEIVED TRACHED ON MECHANICAL VENT W/ NOTED SETTINGS. VENT ALARMS CHECKED AND AUDIBLE, VENT IN RED OUTLET, AMBUBAG AT BEDSIDE. TRACH TUBE PATENT, SECURED, CLEAN. BS EQUAL, DIMINISHED. PT SX'ED AND LAVAGED PRN. NO RESP DISTRESS NOTED. Addendum: 12/24/18 at 1721 by PRICE DOMINGUEZ RT Amended: Links added.
--- NOTE | 2018-12-24 18:45 | NUR ---
RN CLOSING NOTE PATIENT IN BED, AWAKE OPENS EYES. NONVERBAL. ON VENT, NO SOB NOTED. ON TELE MONITOR, SR. NEPRO RUNNING AT 45ML/HR. NO RESIDUAL NOTED. RIGHT UA PICC, INTACT PATENT AND SL. INSULIN COVERAGE GIVEN. HD DONE TODAY. FOR DC TODAY AT 1999. ALL EXIT CARE DONE. FAMILY MADE AWARE, REPORT GIVEN TO [facility]. PICTURE TAKEN FOR WOUND. BED LOCKED AND IN LOWEST POSITION. WILL ENDORSE TO NOC SHIFT RN FOR JOSE
[2018-12-24 20:00] VITALS: BP 104/41
--- NOTE | 2018-12-24 21:46 | NUR ---
RN NOTE PATIENT WAS DISCHARGE IN A STABLE CONDITION, AWAKE, NO RESPIRATORY DISTRESS NOTED, VITAL SIGNS STABLE, REMOVED PICC LINE FROM RIGHT UPPER ARM, TIP IS INTACT, NO S/S OF INFECTION/INFILTRATION NOTED, RIGHT UPPER CHEST HD CATH, DRESSING UPDATED, HD SITE NO S/S OF INFECTION/REDNESS NOTED, LEFT UPPER EXTREMITY FISTULA, NO S/S OF INFECTION NOTED, ALL SAFETY MEASURES TAKEN, SINUS RYTHM, 78 BEATS/MIN, ALL SKIN PICTURES AND DOCUMENTS PREPARED BY AM SHIFT REVIEWED AND PLACED IN THE CHART, BELONGING' S LIST SIGNED AND PLACED IN THE CHART
== END 2018-12-24 22:20 | DRG 264 ==
LOC: ER 08:35 → ICU 11:01 → TELE-TD 12-17 18:55 → TELE1 12-18 09:54
PROVIDERS: ADMIT Nurse Practitioner Acute Care; ATTEND Nurse Practitioner Acute Care
PROC: 5A1955Z Respiratory Ventilation, Greater than 96 Consecutive Hours (ICD-10-PCS; principal; 2018-12-16)
PROC: 5A1D70Z Performance of Urinary Filtration, Intermittent, Less than 6 Hours Per Day (ICD-10-PCS; 2018-12-16)
PROC: 02HV33Z Insertion of Infusion Device into Superior Vena Cava, Percutaneous Approach (ICD-10-PCS; 2018-12-16)
PROC: B548ZZA Ultrasonography of Superior Vena Cava, Guidance (ICD-10-PCS; 2018-12-16)
PROC: 0JB70ZZ Excision of Back Subcutaneous Tissue and Fascia, Open Approach (ICD-10-PCS; 2018-12-17)
DX: T80.211A Bloodstream infection due to central venous catheter, initial encounter (principal); L89.153 Pressure ulcer of sacral region, stage 3; A41.9 Sepsis, unspecified organism; G93.41 Metabolic encephalopathy; N18.6 End stage renal disease; R65.21 Severe sepsis with septic shock; J18.9 Pneumonia, unspecified organism; I21.A1 Myocardial infarction type 2; E87.2 Acidosis; E87.1 Hypo-osmolality and hyponatremia; I12.0 Hypertensive chronic kidney disease with stage 5 chronic kidney disease or end stage renal disease; Z99.11 Dependence on respirator [ventilator] status; K92.2 Gastrointestinal hemorrhage, unspecified; J96.10 Chronic respiratory failure, unspecified whether with hypoxia or hypercapnia; G40.909 Epilepsy, unspecified, not intractable, without status epilepticus; Y84.8 Other medical procedures as the cause of abnormal reaction of the patient, or of later complication, without mention of misadventure at the time of the procedure; Y92.129 Unspecified place in nursing home as the place of occurrence of the external cause; E03.9 Hypothyroidism, unspecified; E78.5 Hyperlipidemia, unspecified; K21.9 Gastro-esophageal reflux disease without esophagitis; D53.9 Nutritional anemia, unspecified; E11.22 Type 2 diabetes mellitus with diabetic chronic kidney disease; Z99.2 Dependence on renal dialysis; Z93.1 Gastrostomy status; Z93.0 Tracheostomy status; Z88.0 Allergy status to penicillin; Z79.4 Long term (current) use of insulin; G20 Parkinson's disease; E11.65 Type 2 diabetes mellitus with hyperglycemia; D63.1 Anemia in chronic kidney disease
CPT/HCPCS: 31720; 36415; 36569; 36600; 71045-TC; 80048-TC; 80053-TC; 80061-TC; 80076-TC; 80202-TC; 82272-TC; 82803-TC; 82947-TC; 82962-TC; 83540-TC; 83605-TC; 83735-TC; 84100-TC; 84443-TC; 84484-TC; 85025-TC; 85027-TC; 85730-TC; 86706; 87040-TC; 87081-TC; 87340; 90935-TC; 93307-TC; 94003-TC; 94760-TC; 94762-TC; A4216; A4623; A6248; A7526; C1751; G0378; J1720; J1815; J1953; J1956; J2185; J3370; J7030; J7050; J7060